=== PATIENT | female | born 1975 | race Hispanic/Latino ===

== ENCOUNTER 2018-11-08 02:46 | Emergency (ER) | payer OTHER ==
[2018-11-08] MEDS ORDERED: KETOROLAC 30 MG/ML INJ ONE (03:29)
[2018-11-08] MEDS ORDERED: NA CHLORIDE 0.9% 1,000 ML ONE (03:29)
[2018-11-08] MEDS ORDERED: ONDANSETRON 4 MG/2 ML VIAL ONE (03:32)
[2018-11-08 04:00] LABS: ALT/SGPT 59 U/L (12-78); AST/SGOT 26 U/L (15-37); Albumin 4.5 g/dL (3.4-5.0); Alkaline Phosphatase 111 U/L (45-117); BUN Blood Urea Nitrogen 18 mg/dL (7-18); Bicarbonate 26 mmol/L (21-32); Bilirubin Direct < 0.1 mg/dL (0-0.2); Bilirubin Total 0.5 mg/dL (0.2-1.0); Glucose Level 206 mg/dL (74-106); Lipase 138 U/L (73-393); Potassium 4.2 mmol/L (3.5-5.1); Protein, Total 8.3 g/dL (6.4-8.2); Sodium Level 140 mmol/L (136-145)
[2018-11-08 04:08] LABS: Absolute Lymphocytes (CBC) 3.2 K/uL (0.7-4.9); Basophils % 0.6 % (0-1.3); Eosinophils % 0.8 % (0-4.4); MPV 9.4 fL (7.6-11.3); Monocytes % 7.3 % (3.3-12.3); RBC Red Blood Cell Count 5.23 M/uL (3.86-4.86)
--- NOTE | 2018-11-08 05:09 | ER ---
Nurse's Notes [facility] Name: Jennifer Goodwin Age: 43 yrs Sex: Female : 1975 Arrival Date: 11/08/2018 Time: 02:48 Bed 7 Private MD: Diagnosis: Calculus of lower urinary tract, unspecified Presentation: 11/08 03:02 Presenting complaint: Patient states: abd pain that radiates to back x 1 hr w/N/V/D. aa1 Transition of care: patient was not received from another setting of care. Onset of symptoms was November 08, 2018. Risk Assessment: Do you want to hurt yourself or someone else? Patient reports no desire to harm self or others. Initial Sepsis Screen: Does the patient meet any 2 criteria? RR > 20 per min. Does the patient have a suspected source of infection? Yes: Acute abdominal pain. Care prior to arrival: None. 03:02 Method Of Arrival: Ambulatory aa1 03:02 Acuity: PATTIE 3 aa1 Triage Assessment: 03:04 General: Appears in no apparent distress. uncomfortable, Behavior is cooperative, aa1 appropriate for age, restless. 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 - Social history:: Smoking status: Patient/guardian denies using tobacco. - Ebola Screening: : No symptoms or risks identified at this time. Screenin:10 Abuse screen: Denies threats or abuse. Nutritional screening: No deficits noted. ea Tuberculosis screening: No symptoms or risk factors identified. Fall Risk None identified. Assessment: 03:18 General: Appears uncomfortable, Behavior is restless. Pain: Complains of pain in back ea and abdomen. Neuro: Level of Consciousness is awake, alert, obeys commands, Oriented to person, place, time, situation. Cardiovascular: Patient's skin is warm and dry. Respiratory: Airway is patent Respiratory effort is even, unlabored, Respiratory pattern is tachypnea. GI: Bowel sounds present X 4 quads. Abd is soft and non tender X 4 quads. Derm: Skin is clammy, Skin is pale, Skin temperature is warm. Musculoskeletal: Circulation, motion, and sensation intact. 04:00 Reassessment: Patient and/or family updated on plan of care and expected duration. Pain ea level reassessed. Patient is alert, oriented x 3, equal unlabored respirations, skin warm/dry/pink. 05:50 Reassessment: Patient and/or family updated on plan of care and expected duration. Pain ea level reassessed. Patient is alert, oriented x 3, equal unlabored respirations, skin warm/dry/pink. 06:20 Reassessment: Patient and/or family updated on plan of care and expected duration. Pain ea level reassessed. Patient is alert, oriented x 3, equal unlabored respirations, skin warm/dry/pink. Discharge instruction given to patient, verbalized the understanding of instruction. No s/s of pain or discomfort noted at this time. Patient states feeling better. Patient states symptoms have improved. Vital Signs: 03:04 BP 142 / 93; Pulse 82; Resp 30; Temp 97.3; Pulse Ox 100% on R/A; Weight 68.95 kg; aa1 Height 4 ft. 11 in. (149.86 cm); Pain 10/10; 04:15 BP 103 / 68; Pulse 60; Resp 18; Pulse Ox 100% on R/A; ea 05:15 BP 92 / 67; Pulse 67; Resp 18; Pulse Ox 99% ; ea 06:20 BP 113 / 75; Pulse 75; Resp 18; Pulse Ox 99% ; ea 03:04 Body Mass Index 30.70 (68.95 kg, 149.86 cm) aa1 ED Course: 02:48 Patient arrived in ED. ds1 03:01 Paulino Ashford MD is Attending Physician. tw4 03:03 Gregoria Golden, YEN is Primary Nurse. ea 03:03 Triage completed. aa1 03:04 Arm band placed on right wrist. aa1 03:10 Patient has correct armband on for positive identification. Bed in low position. Call ea light in reach. Side rails up X2. 03:13 Inserted saline lock: 20 gauge in right antecubital area, using aseptic technique. ea Blood collected. 03:43 CT Stone Protocol In Process Unspecified. EDMS 05:08 Levi Olsen MD is Referral Physician. tw4 06:26 No provider procedures requiring assistance completed. IV discontinued, intact, ea bleeding controlled, No redness/swelling at site. Pressure dressing applied. Administered Medications: 03:15 Drug: TORadol 30 mg Route: IVP; Site: right antecubital; ea 03:32 Follow up: Response: No adverse reaction; Pain is decreased ea 03:31 Drug: NS 0.9% 1000 ml Route: IV; Rate: 1 bolus; Site: right antecubital; ea 04:50 Follow up: Response: No adverse reaction; IV Status: Completed infusion; IV Intake: ea 1000ml 03:32 Drug: Zofran 4 mg Route: IVP; Site: right antecubital; ea 04:00 Follow up: Response: No adverse reaction; Marked relief of symptoms ea 05:30 Drug: NS 0.9% 500 ml Route: IV; Rate: bolus; Site: right antecubital; ea 06:00 Follow up: Response: No adverse reaction; IV Status: Completed infusion; IV Intake: ea 500ml 06:10 Drug: morphine 2 mg Route: IVP; Site: right antecubital; ea 06:33 Follow up: Response: No adverse reaction; Pain is decreased ea 06:12 Drug: ProTONIX 40 mg Route: IVP; Site: right antecubital; ea 06:33 Follow up: Response: No adverse reaction ea Intake: 04:50 IV: 1000ml; Total: 1000ml. ea 06:00 IV: 500ml; Total: 1500ml. ea Outcome: 05:08 Discharge ordered by . tw4 06:26 Discharged to home ambulatory, with significant other. ea 06:26 Condition: improved 06:26 Discharge instructions given to patient, Instructed on discharge instructions, follow up and referral plans. medication usage, Demonstrated understanding of instructions, follow-up care, medications, Prescriptions given X 2. 06:33 Patient left the ED. ea Signatures: Dispatcher [employer] Marybeth Roper RN Kalpana Ansari Elena, RN RN ea Wadley, Terrence, MD MD tw4
--- NOTE | 2018-11-08 05:09 | EDPHYS ---
Physician Documentation [facility] Name: Jennifer Goodwin Age: 43 yrs Sex: Female : 1975 Arrival Date: 11/08/2018 Time: 02:48 Bed 7 Private MD: ED Physician Paulino Ashford HPI: 11/08 04:11 This 43 yrs old Female presents to ER via Ambulatory with complaints of tw4 Abdominal Pain, Vomiting/Diarrhea. 04:11 The patient presents to the emergency department with nausea, vomiting. Onset: The tw4 symptoms/episode began/occurred today. Possible causes: unknown. The symptoms are aggravated by nothing. The symptoms are alleviated by nothing. Associated signs and symptoms: The patient has no apparent associated signs or symptoms. Severity of symptoms: At their worst the symptoms were mild in the emergency department the symptoms are unchanged. The patient has not experienced similar symptoms in the past. 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 - Social history:: Smoking status: Patient/guardian denies using tobacco. - Ebola Screening: : No symptoms or risks identified at this time. ROS: 04:11 Constitutional: Negative for fever, chills, and weight loss, Eyes: Negative for injury, tw4 pain, redness, and discharge, Cardiovascular: Negative for chest pain, palpitations, and edema, Respiratory: Negative for shortness of breath, cough, wheezing, and pleuritic chest pain, Back: Negative for injury and pain, MS/Extremity: Negative for injury and deformity, Skin: Negative for injury, rash, and discoloration, Neuro: Negative for headache, weakness, numbness, tingling, and seizure. 04:11 Abdomen/GI: Positive for abdominal pain, nausea and vomiting, nausea, vomiting, and diarrhea, nausea, vomiting, diarrhea, Negative for abdominal cramps, abdominal distension, anorexia, dysphagia, hematemesis, rectal pain, rectal bleeding. Exam: 04:11 Constitutional: This is a well developed, well nourished patient who is awake, alert, tw4 and in no acute distress. Head/Face: Normocephalic, atraumatic. Chest/axilla: Normal chest wall appearance and motion. Nontender with no deformity. No lesions are appreciated. Cardiovascular: Regular rate and rhythm with a normal S1 and S2. No gallops, murmurs, or rubs. Normal PMI, no JVD. No pulse deficits. Respiratory: Lungs have equal breath sounds bilaterally, clear to auscultation and percussion. No rales, rhonchi or wheezes noted. No increased work of breathing, no retractions or nasal flaring. Vital Signs: 03:04 BP 142 / 93; Pulse 82; Resp 30; Temp 97.3; Pulse Ox 100% on R/A; Weight 68.95 kg; aa1 Height 4 ft. 11 in. (149.86 cm); Pain 10/10; 04:15 BP 103 / 68; Pulse 60; Resp 18; Pulse Ox 100% on R/A; ea 05:15 BP 92 / 67; Pulse 67; Resp 18; Pulse Ox 99% ; ea 06:20 BP 113 / 75; Pulse 75; Resp 18; Pulse Ox 99% ; ea 03:04 Body Mass Index 30.70 (68.95 kg, 149.86 cm) aa1 MDM: 03:01 Patient medically screened. tw4 04:11 Differential diagnosis: Nonspecific abd pain, gastritis, cholecystitis, pancreatitis. tw4 Data reviewed: vital signs, nurses notes. Counseling: I had a detailed discussion with the patient and/or guardian regarding: the historical points, exam findings, and any diagnostic results supporting the discharge/admit diagnosis, lab results, radiology results. 11/08 03:03 Order name: Basic Metabolic Panel; Complete Time: 05:20 11/08 03:03 Order name: CBC with Diff; Complete Time: :11/08 03:03 Order name: Creatinine for Radiology; Complete Time: 05:20 11/08 03:03 Order name: Hepatic Function; Complete Time: :20 11/08 03:03 Order name: Lipase 11/08 03:03 Order name: CT Stone Protocol 11/08 03:03 Order name: IV Saline Lock; Complete Time: 03:12 11/08 03:03 Order name: Labs collected and sent; Complete Time: 03:12 tw4 11/08 03:03 Order name: Urine Dipstick-Ancillary (obtain specimen) tw4 11/08 03:03 Order name: Urine Test (obtain specimen) tw4 Administered Medications: 03:15 Drug: TORadol 30 mg Route: IVP; Site: right antecubital; ea 03:32 Follow up: Response: No adverse reaction; Pain is decreased ea 03:31 Drug: NS 0.9% 1000 ml Route: IV; Rate: 1 bolus; Site: right antecubital; ea 04:50 Follow up: Response: No adverse reaction; IV Status: Completed infusion; IV Intake: ea 1000ml 03:32 Drug: Zofran 4 mg Route: IVP; Site: right antecubital; ea 04:00 Follow up: Response: No adverse reaction; Marked relief of symptoms ea 05:30 Drug: NS 0.9% 500 ml Route: IV; Rate: bolus; Site: right antecubital; ea 06:00 Follow up: Response: No adverse reaction; IV Status: Completed infusion; IV Intake: ea 500ml 06:10 Drug: morphine 2 mg Route: IVP; Site: right antecubital; ea 06:33 Follow up: Response: No adverse reaction; Pain is decreased ea 06:12 Drug: ProTONIX 40 mg Route: IVP; Site: right antecubital; ea 06:33 Follow up: Response: No adverse reaction ea Disposition: 11/08/18 05:08 Discharged to Home. Impression: Calculus of lower urinary tract, unspecified. - Condition is Stable. - Discharge Instructions: Kidney Stones, [id number]. - Prescriptions for Ibuprofen 800 mg Oral Tablet - take 1 tablet by ORAL route every 8 hours As needed take with food; 30 tablet. Tylenol- Codeine #3 300-30 mg Oral Tablet - take 2 tablet by ORAL route every 6 hours As needed; 6 tablet. - Medication Reconciliation Form, Thank You Letter, Antibiotic Education, Prescription Opioid Use form. - Follow up: Levi Olsen MD; When: Upon discharge from the Emergency Department; Reason: If symptoms return, Recheck today's complaints, Continuance of care. - Problem is new. - Symptoms have improved. Signatures: Dispatcher [employer] EDMarybeth Garcia RN RN aa1 Gregoria Golden RN RN Paulino Pepe MD MD tw4 Corrections: (The following items were deleted from the chart) 06:33 05:08 11/08/2018 05:08 Discharged to Home. Impression: Calculus of lower urinary tract, ea unspecified. Condition is Stable. Forms are Medication Reconciliation Form, Thank You Letter, Antibiotic Education, Prescription Opioid Use. Follow up: Levi Olsen; When: Upon discharge from the Emergency Department; Reason: If symptoms return, Recheck today's complaints, Continuance of care. Problem is new. Symptoms have improved. tw4
[2018-11-08] MEDS ORDERED: NA CHLORIDE 0.9% 500 ML ONE (05:44)
[2018-11-08] MEDS ORDERED: PANTOPRAZOLE 40 MG INJ ONE (06:25)
[2018-11-08] MEDS ORDERED: MORPHINE 2 MG/ML SYR ONE (06:25)
[2018-11-08 06:49] VITALS: TEMP 97.3
[2018-11-08 06:50] VITALS: O2SAT 99
[2018-11-08 06:51] VITALS: BP 113/75
--- NOTE | 2018-11-08 10:10 | RAD REPORT ---
EXAM DESCRIPTION: CT - Stone Protocol - 11/08/2018 4:46 am CLINICAL HISTORY: The patient is 43 years old and is Female; FLANK PAIN TECHNIQUE: Axial computed tomography images of the abdomen and pelvis without intravenous contrast. Sagittal and coronal reformatted images were created and reviewed. This CT exam was performed usi ng one or more of the following dose reduction techniques: automated exposure control, adjustment o f the mA and/or kV according to patient size, and/or use of iterative reconstruction technique. COMPARISON: CT of the abdomen and pelvis November 09, 2012. FINDINGS: LUNG BASES: Unremarkable. No mass. No consolidation. ABDOMEN: LIVER: The liver is enlarged and mildly fatty. GALLBLADDER AND BILE DUCTS: The gallbladder is physiologically distended. No calcified gallstone s or ductal dilatation is seen. PANCREAS: Unremarkable. No ductal dilation. SPLEEN: Unremarkable. ADRENALS: Unremarkable. No mass. KIDNEYS AND URETERS: Bilateral intrarenal calcifications are present. There is no hydronephrosis or hydroureter of either kidney. No obstructing renal or ureteral calculus is seen. STOMACH AND BOWEL: The stomach is minimally distended with air. The small bowel is relatively no rmal in caliber. Stool is noted throughout the colon. There is no mucosal thickening or evidence of b owel obstruction. PELVIS: APPENDIX: The appendix is normal in caliber without surrounding inflammation. BLADDER: Unremarkable. No stones. REPRODUCTIVE: Unremarkable as visualized. ABDOMEN and PELVIS: INTRAPERITONEAL SPACE: Unremarkable. No free air. No significant fluid collection. BONES/JOINTS: No acute fracture. SOFT TISSUES: The soft tissues are normal. VASCULATURE: Unremarkable. No abdominal aortic aneurysm. LYMPH NODES: Unremarkable. No enlarged lymph nodes. IMPRESSION: Bilateral nephrolithiasis without obstruction. Electronically signed by: Nat Chu MD 11/08/2018 4:20 AM CDT Due to temporary technical issues with the PACS/Fluency reporting system, reports are being signed by the in house radiologist as a courtesy to ensure prompt reporting. The interpreting radiologist is f inesly responsible for the content of the report.
== END 2018-11-08 06:33 | disposition home or self-care (01) ==
LOC: ER 02:46
DX: N21.9 Calculus of lower urinary tract, unspecified (principal); E11.9 Type 2 diabetes mellitus without complications
CPT/HCPCS: 36415; 74176; 76377; 80048; 80076; 83690; 85025; 96361; 96374; 96375; 99284; C9113; J2270; J2405; J7030

== ENCOUNTER 2019-05-18 11:19 | Emergency (ER) | payer OTHER ==
[2019-05-18] MEDS ORDERED: MORPHINE 2 MG/ML SYR ONE (12:30)
[2019-05-18] MEDS ORDERED: FAMOTIDINE 20 MG/2 ML VIAL IV ONE (12:30)
[2019-05-18] MEDS ORDERED: ONDANSETRON 4 MG/2 ML VIAL ONE (12:30)
[2019-05-18] MEDS ORDERED: NA CHLORIDE 0.9% 1,000 ML ONE (12:30)
[2019-05-18 12:34] LABS: Absolute Lymphocytes (CBC) 1.4 K/uL (0.7-4.9); Basophils % 0.3 % (0-1.3); Hematocrit 44.8 % (36.0-45.0); Lymphocytes % 12.9 % (15.3-44.8); MPV 9.1 fL (7.6-11.3); RBC Red Blood Cell Count 5.05 M/uL (3.86-4.86)
[2019-05-18 12:47] LABS: ALT/SGPT 52 U/L (12-78); AST/SGOT 23 U/L (15-37); Albumin 3.9 g/dL (3.4-5.0); Alkaline Phosphatase 87 U/L (45-117); BUN Blood Urea Nitrogen 16 mg/dL (7-18); Bicarbonate 28 mmol/L (21-32); Bilirubin Direct 0.3 mg/dL (0-0.2); Bilirubin Total 1.3 mg/dL (0.2-1.0); Glucose Level 136 mg/dL (74-106); Lipase 104 U/L (73-393); Potassium 3.8 mmol/L (3.5-5.1); Protein, Total 7.4 g/dL (6.4-8.2); Sodium Level 140 mmol/L (136-145)
[2019-05-18 12:58] LABS: Urine Blood NEGATIVE (NEG); Urine Glucose 2+ (NEG); Urine Protein NEGATIVE (NEG)
--- NOTE | 2019-05-18 13:33 | RAD REPORT ---
EXAM DESCRIPTION: CT - Abdomen Pelvis W Contrast - 05/18/2019 1:09 pm CLINICAL HISTORY: Abdominal pain COMPARISON: October 2018 TECHNIQUE: Computed axial tomography of the abdomen pelvis was obtained. 100 cc Isovue-300 was admin istered intravenously. Oral contrast was not requested which limits evaluation of bowel. All CT scans are performed using dose optimization technique as appropriate and may include automated exposure control or mA/KV adjustment according to patient size. FINDINGS: Fatty liver The spleen, pancreas and adrenals unremarkable A 14 millimeter right renal cyst. Small nonobstructing bilateral renal calculi There is no evidence of diverticulitis. Normal appendix 21 millimeter left renal cyst without significant free fluid IMPRESSION: Small nonobstructing bilateral renal calculi 21 millimeter left renal cyst without significant free fluid
--- NOTE | 2019-05-18 14:05 | ER ---
Nurse's Notes [facility] [place], [place] Name: Jennifer Goodwin Age: 44 yrs Sex: Female : 1975 Arrival Date: 05/18/2019 Time: 11:23 Bed 16 Private MD: Diagnosis: Abdominal tenderness;Type 2 diabetes mellitus Presentation: 05/18 11:30 Presenting complaint: Patient states: Epigastric pain and burning radiates to the back, jl7 N/V since 0500 this morning, I've had kidney stones in the past and this is sort of similar. Transition of care: patient was not received from another setting of care. Onset of symptoms was May 18, 2019 at 05:00. Risk Assessment: Do you want to hurt yourself or someone else? Patient reports no desire to harm self or others. Initial Sepsis Screen: Does the patient meet any 2 criteria? No. Patient's initial sepsis screen is negative. Does the patient have a suspected source of infection? No. Patient's initial sepsis screen is negative. Care prior to arrival: None. 11:30 Method Of Arrival: Ambulatory jl7 11:30 Acuity: PATTIE 3 jl7 Triage Assessment: 11:34 General: Appears in no apparent distress. uncomfortable, Behavior is calm, cooperative, jl7 appropriate for age. Pain: Complains of pain in epigastric area Pain radiates to back Pain currently is 1 out of 10 on a pain scale. GI: Reports nausea, vomiting. 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 - Coronavirus screen:: The patient has NOT traveled to [place], [place], or [place] in the past 14 days. Proceed with normal triage process as indicated. - Social history:: Smoking status: Patient denies any tobacco usage or history of. - Family history:: not pertinent. - Ebola Screening: : No symptoms or risks identified at this time. Screenin:02 Abuse screen: Denies threats or abuse. Denies injuries from another. Nutritional ca1 screening: No deficits noted. Tuberculosis screening: No symptoms or risk factors identified. Fall Risk IV access (20 points). Assessment: 12:02 General: Appears in no apparent distress. comfortable, Behavior is calm, cooperative, ca1 appropriate for age. Pain: Complains of pain in epigastric area and left upper quadrant Pain does not radiate. Pain currently is 4 out of 10 on a pain scale. Quality of pain is described as burning, Pain began 1 day ago. Neuro: Level of Consciousness is awake, alert, obeys commands, Oriented to person, place, time, situation, Appropriate for age. Cardiovascular: Heart tones S1 S2 present Capillary refill < 3 seconds Patient's skin is warm and dry. Respiratory: Airway is patent Respiratory effort is even, unlabored, Respiratory pattern is regular, agonal Breath sounds are clear bilaterally. GI: Abdomen is round non-distended, Bowel sounds present X 4 quads. Abd is soft X 4 quads Abdomen is tender to palpation in epigastric area and left upper quadrant Reports nausea, vomiting. : No signs and/or symptoms were reported regarding the genitourinary system. EENT: No signs and/or symptoms were reported regarding the EENT system. Derm: Skin is intact, is healthy with good turgor, Skin is pink, warm \T\ dry. Musculoskeletal: Circulation, motion, and sensation intact. Capillary refill < 3 seconds. 12:46 Reassessment: Patient appears in no apparent distress at this time. No changes from ca1 previously documented assessment. Patient and/or family updated on plan of care and expected duration. Pain level reassessed. Patient is alert, oriented x 3, equal unlabored respirations, skin warm/dry/pink. 13:40 Reassessment: Patient appears in no apparent distress at this time. No changes from ca1 previously documented assessment. Patient and/or family updated on plan of care and expected duration. Pain level reassessed. Patient is alert, oriented x 3, equal unlabored respirations, skin warm/dry/pink. 14:33 Reassessment: Patient appears in no apparent distress at this time. Patient is alert, ca1 oriented x 3, equal unlabored respirations, skin warm/dry/pink. Vital Signs: 11:34 BP 129 / 96; Pulse 78; Resp 16; Temp 98.3; Pulse Ox 98% ; Weight 63.5 kg; Height 4 ft. jl7 11 in. (149.86 cm); Pain 1/10; 12:46 BP 123 / 91; Pulse 76; Resp 17 S; Pulse Ox 100% on R/A; Pain 3/10; ca1 13:45 BP 119 / 85; Pulse 64; Resp 17 S; Pulse Ox 100% on R/A; ca1 14:33 BP 113 / 79; Pulse 71; Resp 16 S; Pulse Ox 100% on R/A; ca1 11:34 Body Mass Index 28.28 (63.50 kg, 149.86 cm) jl7 ED Course: 11:23 Patient arrived in ED. as 11:33 Triage completed. jl7 11:34 Arm band placed on right wrist. jl7 11:36 Shavon Juarez, YEN is Primary Nurse. ca1 11:38 Dick Narvaez MD is Attending Physician. karely 12:02 Patient has correct armband on for positive identification. Bed in low position. Call ca1 light in reach. Side rails up X 1. Pulse ox on. NIBP on. Warm blanket given. 12:02 No provider procedures requiring assistance completed. Initial lab(s) drawn, by ut, ca1 sent to lab. Inserted saline lock: 20 gauge in left antecubital area, using aseptic technique. Blood collected. 12:30 US Abdomen Limited In Process Unspecified. EDMS 13:09 CT Abd/Pelvis - IV Contrast Only In Process Unspecified. EDMS 14:56 IV discontinued, intact, bleeding controlled, No redness/swelling at site. Pressure ca1 dressing applied. Administered Medications: 12:10 Drug: NS 0.9% 1000 ml Route: IV; Rate: 1 bolus; Site: left antecubital; ca1 13:15 Follow up: Response: No adverse reaction; IV Status: Completed infusion ca1 13:34 Follow up: Response: No adverse reaction; IV Status: Completed infusion ca1 12:11 Drug: Zofran 4 mg Route: IVP; Site: left antecubital; ca1 13:35 Follow up: Response: No adverse reaction; Nausea is decreased ca1 12:15 Drug: Pepcid 20 mg Route: IVP; Site: left antecubital; ca1 13:34 Follow up: Response: No adverse reaction ca1 13:34 Not Given (Patient Refused): morphine 2 mg IVP once; (PAIN>8) RASS on ADMN: Combtv4, ca1 Very Agttd3, Agttd2, Rstlss1, AlertClm0, Drwsy-1, LtSdtn-2, ModSdtn-3, DpSdtn-4, UnArsble-5 x2 Outcome: 14:05 Discharge ordered by . karely 14:56 Discharged to home ambulatory, with family. ca1 14:56 Condition: stable 14:56 Discharge instructions given to patient, Instructed on discharge instructions, follow up and referral plans. medication usage, Demonstrated understanding of instructions, follow-up care, medications, Prescriptions given X 3. 14:56 Patient left the ED. ca1 Signatures: Dispatcher [employer] EDMS Dick Narvaez MD MD cha Martinez, Amelia as Leal, Jahala, RN RN jl7 Shavon Juarez RN RN ca1
--- NOTE | 2019-05-18 14:06 | EDPHYS ---
Physician Documentation [facility] Name: Jennifer Goodwin Age: 44 yrs Sex: Female : 1975 Arrival Date: 05/18/2019 Time: 11:23 Bed 16 Private MD: ED Physician Dick Narvaez HPI: 05/18 12:04 This 44 yrs old Female presents to ER via Ambulatory with complaints of karely Abdominal Pain. 12:04 The patient presents with abdominal pain. Onset: The symptoms/episode began/occurred karely just prior to arrival. The symptoms do not radiate. Associated signs and symptoms: Pertinent positives: nausea and vomiting. Modifying factors: The symptoms are alleviated by nothing, the symptoms are aggravated by nothing. Severity of pain: At its worst the pain was mild in the emergency department the pain is unchanged. The patient has experienced similar episodes in the past, several times. 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 - Coronavirus screen:: The patient has NOT traveled to [place], [place], or [place] in the past 14 days. Proceed with normal triage process as indicated. - Social history:: Smoking status: Patient denies any tobacco usage or history of. - Family history:: not pertinent. - Ebola Screening: : No symptoms or risks identified at this time. ROS: 12:04 Constitutional: Negative for fever, chills, and weight loss, Eyes: Negative for injury, karely pain, redness, and discharge, ENT: Negative for injury, pain, and discharge, Neck: Negative for injury, pain, and swelling, Cardiovascular: Negative for chest pain, palpitations, and edema, Respiratory: Negative for shortness of breath, cough, wheezing, and pleuritic chest pain, : Negative for injury, bleeding, discharge, and swelling, MS/Extremity: Negative for injury and deformity, Skin: Negative for injury, rash, and discoloration, Neuro: Negative for headache, weakness, numbness, tingling, and seizure, Psych: Negative for depression, anxiety, suicide ideation, homicidal ideation, and hallucinations, Allergy/Immunology: Negative for hives, rash, and allergies, Endocrine: Negative for neck swelling, polydipsia, polyuria, polyphagia, and marked weight changes, Hematologic/Lymphatic: Negative for swollen nodes, abnormal bleeding, and unusual bruising. 12:04 Abdomen/GI: Positive for abdominal pain, nausea and vomiting, of the epigastric area, right upper quadrant and left upper quadrant. Exam: 12:04 Constitutional: This is a well developed, well nourished patient who is awake, alert, karely and in no acute distress. Head/Face: Normocephalic, atraumatic. Eyes: Pupils equal round and reactive to light, extra-ocular motions intact. Lids and lashes normal. Conjunctiva and sclera are non-icteric and not injected. Cornea within normal limits. Periorbital areas with no swelling, redness, or edema. ENT: Nares patent. No nasal discharge, no septal abnormalities noted. Tympanic membranes are normal and external auditory canals are clear. Oropharynx with no redness, swelling, or masses, exudates, or evidence of obstruction, uvula midline. Mucous membranes moist. Neck: Trachea midline, no thyromegaly or masses palpated, and no cervical lymphadenopathy. Supple, full range of motion without nuchal rigidity, or vertebral point tenderness. No Meningismus. Chest/axilla: Normal chest wall appearance and motion. Nontender with no deformity. No lesions are appreciated. Cardiovascular: Regular rate and rhythm with a normal S1 and S2. No gallops, murmurs, or rubs. Normal PMI, no JVD. No pulse deficits. Respiratory: Lungs have equal breath sounds bilaterally, clear to auscultation and percussion. No rales, rhonchi or wheezes noted. No increased work of breathing, no retractions or nasal flaring. Back: No spinal tenderness. No costovertebral tenderness. Full range of motion. Female : Normal external genitalia. Skin: Warm, dry with normal turgor. Normal color with no rashes, no lesions, and no evidence of cellulitis. MS/ Extremity: Pulses equal, no cyanosis. Neurovascular intact. Full, normal range of motion. Neuro: Awake and alert, GCS 15, oriented to person, place, time, and situation. Cranial nerves II-XII grossly intact. Motor strength 5/5 in all extremities. Sensory grossly intact. Cerebellar exam normal. Normal gait. Psych: Awake, alert, with orientation to person, place and time. Behavior, mood, and affect are within normal limits. 12:04 Abdomen/GI: Inspection: abdomen appears normal, Bowel sounds: normal, Palpation: mild abdominal tenderness, in the epigastric area, right upper quadrant and left upper quadrant. Vital Signs: 11:34 BP 129 / 96; Pulse 78; Resp 16; Temp 98.3; Pulse Ox 98% ; Weight 63.5 kg; Height 4 ft. jl7 11 in. (149.86 cm); Pain 1/10; 12:46 BP 123 / 91; Pulse 76; Resp 17 S; Pulse Ox 100% on R/A; Pain 3/10; ca1 13:45 BP 119 / 85; Pulse 64; Resp 17 S; Pulse Ox 100% on R/A; ca1 14:33 BP 113 / 79; Pulse 71; Resp 16 S; Pulse Ox 100% on R/A; ca1 11:34 Body Mass Index 28.28 (63.50 kg, 149.86 cm) 7 MDM: 11:38 Patient medically screened. [facility] 12:05 Data reviewed: vital signs, nurses notes, lab test result(s), radiologic studies, CT karely scan, ultrasound. 05/18 12:01 Order name: Basic Metabolic Panel; Complete Time: 13:29 ca1 05/18 12:01 Order name: CBC with Diff; Complete Time: 13: ca1 05/18 12:01 Order name: Creatinine for Radiology; Complete Time: 13: ca1 05/18 12:01 Order name: Hepatic Function; Complete Time: 13: ca1 05/18 12:01 Order name: Lipase; Complete Time: 13:29 ca1 05/18 12:06 Order name: Urine Culture [facility] 05/18 12:03 Order name: CT Abd/Pelvis - IV Contrast Only; Complete Time: 14:03 karely 05/18 12:03 Order name: US Abdomen Limited [facility] 05/18 12:55 Order name: Urine Dipstick--Ancillary (enter results); Complete Time: 13:29 bd 05/18 12:55 Order name: Urine --Ancillary (enter results); Complete Time: 13: 05/18 12:01 Order name: IV Saline Lock; Complete Time: 12:02 ca1 05/18 12:01 Order name: Labs collected and sent; Complete Time: 12:02 ca1 05/18 12:06 Order name: Urine Dipstick-Ancillary (obtain specimen); Complete Time: 12:52 karely 05/18 12:06 Order name: Urine Test (obtain specimen); Complete Time: 12:52 [facility] Administered Medications: 12:10 Drug: NS 0.9% 1000 ml Route: IV; Rate: 1 bolus; Site: left antecubital; ca1 13:15 Follow up: Response: No adverse reaction; IV Status: Completed infusion ca1 13:34 Follow up: Response: No adverse reaction; IV Status: Completed infusion ca1 12:11 Drug: Zofran 4 mg Route: IVP; Site: left antecubital; ca1 13:35 Follow up: Response: No adverse reaction; Nausea is decreased ca1 12:15 Drug: Pepcid 20 mg Route: IVP; Site: left antecubital; ca1 13:34 Follow up: Response: No adverse reaction ca1 13:34 Not Given (Patient Refused): morphine 2 mg IVP once; (PAIN>8) RASS on ADMN: Combtv4, ca1 Very Agttd3, Agttd2, Rstlss1, AlertClm0, Drwsy-1, LtSdtn-2, ModSdtn-3, DpSdtn-4, UnArsble-5 x2 Disposition: 05/18/19 14:05 Discharged to Home. Impression: Abdominal tenderness, Type 2 diabetes mellitus. - Condition is Stable. - Discharge Instructions: Abdominal Pain, Adult, Type 2 Diabetes Mellitus, Diagnosis, Adult, Abdominal Pain, Adult, [id number], Type 2 Diabetes Mellitus, Diagnosis, Adult, [id number]. - Prescriptions for Bentyl 20 mg Oral Tablet - take 1 tablet by ORAL route every 6 hours As needed; 20 tablet. Pepcid 20 mg Oral Tablet - take 1 tablet by ORAL route every 12 hours for 10 days; 20 tablet. Zofran 4 mg Oral Tablet - take 1 tablet by ORAL route every 12 hours As needed; 20 tablet. - Medication Reconciliation Form, Thank You Letter, Antibiotic Education, Prescription Opioid Use, Work release form form. - Follow up: Private Physician; When: 2 - 3 days; Reason: Recheck today's complaints, Continuance of care, Re-evaluation by your physician. - Problem is new. - Symptoms have improved. Signatures: Dispatcher [employer] EDDick Nieves MD MD cha Leal, Jahala RN RN jl7 Shavon Juarez RN RN ca1 Corrections: (The following items were deleted from the chart) 14:56 14:05 05/18/2019 14:05 Discharged to Home. Impression: Abdominal tenderness; Type 2 ca1 diabetes mellitus. Condition is Stable. Forms are Medication Reconciliation Form, Thank You Letter, Antibiotic Education, Prescription Opioid Use. Follow up: Private Physician; When: 2 - 3 days; Reason: Recheck today's complaints, Continuance of care, Re-evaluation by your physician. Problem is new. Symptoms have improved. karely
--- NOTE | 2019-05-18 14:31 | RAD REPORT ---
EXAM DESCRIPTION: US - Abdomen Exam Limited - 05/18/2019 12:30 pm CLINICAL HISTORY: Abdominal pain. COMPARISON: 2016 FINDINGS: The gallbladder wall is not thickened. A gallstone is not seen. The biliary tree is normal caliber. IMPRESSION: Unremarkable gallbladder ultrasound.
[2019-05-18 15:29] VITALS: O2SAT 100
[2019-05-18 15:31] VITALS: TEMP 98.3
[2019-05-18 15:33] VITALS: BP 113/79
== END 2019-05-18 14:56 | disposition home or self-care (01) ==
LOC: ER 11:19
DX: R10.819 Abdominal tenderness, unspecified site (principal); E11.9 Type 2 diabetes mellitus without complications; R11.2 Nausea with vomiting, unspecified; Z87.442 Personal history of urinary calculi
CPT/HCPCS: 96361; 87088; 85025; 87086; 80048; 36415; 81025; 80076; 81003; 83690; 74177; 76705; 96375; 96374; 99284; Q9967; J2270; J7030; J2405

== ENCOUNTER 2019-07-12 22:06 | Emergency (ER) | payer OTHER ==
[2019-07-12] MEDS ORDERED: NA CHLORIDE 0.9% 1,000 ML ONE (22:42)
[2019-07-12] MEDS ORDERED: ONDANSETRON 4 MG/2 ML VIAL ONE (22:42)
[2019-07-12] MEDS ORDERED: MORPHINE 4 MG/ML SYR ONE (22:42)
[2019-07-12 22:55] LABS: Absolute Lymphocytes (CBC) 3.5 K/uL (0.7-4.9); Basophils % 0.7 % (0-1.3); Hematocrit 43.6 % (36.0-45.0); Lymphocytes % 32.6 % (15.3-44.8); MPV 8.6 fL (7.6-11.3); RBC Red Blood Cell Count 4.94 M/uL (3.86-4.86)
[2019-07-12 23:07] LABS: Albumin 4.2 g/dL (3.4-5.0); Bilirubin Direct 0.1 mg/dL (0-0.2); Bilirubin Total 0.6 mg/dL (0.2-1.0); Potassium 3.4 mmol/L (3.5-5.1); Protein, Total 7.9 g/dL (6.4-8.2)
--- NOTE | 2019-07-13 00:55 | EDPHYS ---
Physician Documentation [facility] Name: Jennifer Goodwin Age: 44 yrs Sex: Female : 1975 Arrival Date: 07/12/2019 Time: 22:17 Bed 5 Private MD: ED Physician Dick Narvaez HPI: 07/12 00:20 This 44 yrs old Female presents to ER via Ambulatory with complaints of kb Abdominal Pain. 00:20 The patient presents with abdominal pain in the left upper quadrant. Onset: The kb symptoms/episode began/occurred 4 day(s) ago. The symptoms do not radiate. Associated signs and symptoms: Pertinent positives: nausea, Pertinent negatives: constipation, diarrhea, fever, vomiting. The symptoms are described as constant. Modifying factors: The symptoms are alleviated by nothing, the symptoms are aggravated by nothing. Severity of pain: At its worst the pain was moderate in the emergency department the pain is unchanged. The patient has experienced a previous episode. The patient has not recently seen a physician. Pt reports nausea and abd pain for 4 days. Pain got worse approx 1 hour ago. Has had this pain before and ER workup was negative so sent to GI. GI scheduled her for endo to be done on Thursday, but cancelled due to coronavirus. . 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 - Social history:: Smoking status: Patient denies any tobacco usage or history of. Patient uses alcohol, occasionally. Patient/guardian denies using street drugs. ROS: 23:40 Constitutional: Negative for fever, chills, and weight loss, ENT: Negative for injury, kb pain, and discharge, Neck: Negative for injury, pain, and swelling, Cardiovascular: Negative for chest pain, palpitations, and edema, Respiratory: Negative for shortness of breath, cough, wheezing, and pleuritic chest pain, Back: Negative for injury and pain, MS/Extremity: Negative for injury and deformity, Skin: Negative for injury, rash, and discoloration, Neuro: Negative for headache, weakness, numbness, tingling, and seizure. 23:44 Abdomen/GI: Positive for abdominal pain, nausea, Negative for vomiting, diarrhea. kb Exam: 23:44 Constitutional: This is a well developed, well nourished patient who is awake, alert, kb and in no acute distress. Head/Face: Normocephalic, atraumatic. Neck: Trachea midline, no thyromegaly or masses palpated, and no cervical lymphadenopathy. Supple, full range of motion without nuchal rigidity, or vertebral point tenderness. No Meningismus. Chest/axilla: Normal chest wall appearance and motion. Nontender with no deformity. No lesions are appreciated. Cardiovascular: Regular rate and rhythm with a normal S1 and S2. No gallops, murmurs, or rubs. Normal PMI, no JVD. No pulse deficits. Respiratory: Lungs have equal breath sounds bilaterally, clear to auscultation and percussion. No rales, rhonchi or wheezes noted. No increased work of breathing, no retractions or nasal flaring. Back: No spinal tenderness. No costovertebral tenderness. Full range of motion. Skin: Warm, dry with normal turgor. Normal color with no rashes, no lesions, and no evidence of cellulitis. MS/ Extremity: Pulses equal, no cyanosis. Neurovascular intact. Full, normal range of motion. Neuro: Awake and alert, GCS 15, oriented to person, place, time, and situation. Cranial nerves II-XII grossly intact. Motor strength 5/5 in all extremities. Sensory grossly intact. Cerebellar exam normal. Normal gait. 23:44 Abdomen/GI: Inspection: abdomen appears normal, Bowel sounds: normal, Palpation: soft, in all quadrants, mild abdominal tenderness, in all quadrants. Vital Signs: 22:17 BP 159 / 104; Pulse 84; Resp 18; Temp 98.0(O); Pulse Ox 99% on R/A; Weight 65.77 kg fc (R); Height 4 ft. 11 in. (149.86 cm) (R); Pain 9/10; 23:44 BP 133 / 87; Pulse 65; Resp 17 S; Pulse Ox 100% on R/A; jd3 07/12 01:24 BP 134 / 89; Pulse 64; Resp 17 S; Pulse Ox 100% on R/A; jd3 07/11 22:17 Body Mass Index 29.29 (65.77 kg, 149.86 cm) fc MDM: 07/11 22:25 Patient medically screened. kb 23:40 Data reviewed: vital signs, nurses notes. Data interpreted: Pulse oximetry: on room air kb is 99 %. Interpretation: normal. 07/12 00:53 Counseling: I had a detailed discussion with the patient and/or guardian regarding: the kb historical points, exam findings, and any diagnostic results supporting the discharge/admit diagnosis, lab results, radiology results, the need for outpatient follow up, a family practitioner, to return to the emergency department if symptoms worsen or persist or if there are any questions or concerns that arise at home. 07/11 22:48 Order name: Basic Metabolic Panel; Complete Time: 23:11 EDMS 07/11 22:48 Order name: Liver (Hepatic) Function; Complete Time: 23:11 EDMS 07/11 22:48 Order name: Lipase; Complete Time: 23:11 EDMS 07/11 22:48 Order name: CBC with Automated Diff; Complete Time: 23:02 EDMS 07/11 23:15 Order name: CT Abd/Pelvis - IV Contrast Only kb 07/11 22:25 Order name: IV Saline Lock; Complete Time: 22:43 kb 07/11 22:25 Order name: Labs collected and sent; Complete Time: 22:43 kb Administered Medications: 07/11 22:50 Drug: NS 0.9% 1000 ml Route: IV; Rate: 1000 ml; Site: left antecubital; jd3 23:50 Follow up: Response: No adverse reaction; IV Status: Completed infusion; IV Intake: jd3 1000ml 22:50 Drug: Zofran (Ondansetron) 4 mg Route: IVP; Site: left antecubital; jd3 23:50 Follow up: Response: No adverse reaction jd3 22:50 Drug: morphine 4 mg Route: IVP; Site: left antecubital; jd3 23:50 Follow up: Response: No adverse reaction; RASS: Alert and Calm (0) jd3 Disposition: 07/12 07:35 Co-signature as Attending Physician, Dick Brice MD I agree with the assessment and karely plan of care. Disposition: 07/13/19 00:54 Discharged to Home. Impression: Upper abdominal pain, unspecified, Other ovarian cysts. - Condition is Stable. - Discharge Instructions: Abdominal Pain, Adult, [id number], Ovarian Cyst, [id number]. - Prescriptions for Bentyl 20 mg Oral Tablet - take 1 tablet by ORAL route every 6 hours As needed; 20 tablet. - Medication Reconciliation Form, Thank You Letter, Antibiotic Education, Prescription Opioid Use form. - Follow up: Emergency Department; When: As needed; Reason: Worsening of condition. Follow up: Private Physician; When: 2 - 3 days; Reason: Recheck today's complaints, Continuance of care, Re-evaluation by your physician. Signatures: Dispatcher [employer] EDPA Minna Doyle, INSPECTOR FIREARMS-C INSPECTOR FIREARMS-Arnoldob Dick Narvaez MD MD cha Chretien, Felicia, RN RN Markie Suero RN RN jd3 Corrections: (The following items were deleted from the chart) 07/11 23:41 23:09 BASIC METABOLIC PANEL+C.LAB.BRZ ordered. EDPA EDPA 23:41 23:09 CBC+H.LAB.BRZ ordered. EDPA EDPA 23:41 23:09 HEPATIC FUNCTION+C.LAB.BRZ ordered. EDPA EDMS 23:41 23:09 LIPASE+C.LAB.BRZ ordered. [facility] 07/12 01:31 00:54 07/13/2019 00:54 Discharged to Home. Impression: Upper abdominal pain, jd3 unspecified; Other ovarian cysts. Condition is Stable. Forms are Medication Reconciliation Form, Thank You Letter, Antibiotic Education, Prescription Opioid Use. Follow up: Emergency Department; When: As needed; Reason: Worsening of condition. Follow up: Private Physician; When: 2 - 3 days; Reason: Recheck today's complaints, Continuance of care, Re-evaluation by your physician. kb
--- NOTE | 2019-07-13 00:55 | ER ---
Nurse's Notes [facility] Name: Jennifer Goodwin Age: 44 yrs Sex: Female : 1975 Arrival Date: 07/12/2019 Time: 22:17 Bed 5 Private MD: Diagnosis: Upper abdominal pain, unspecified;Other ovarian cysts Presentation: 07/11 22:17 Chief complaint: Patient states: that for the past 4 days she has been having left fc upper quad pain and then approx 1 hr ago she started to have severe epigastric pain. Positive for nausea, but denies any vomiting or diarrhea. Pt is also diaphoretic. Coronavirus screen: Patient denies fever greater than 100.4F, cough, shortness of breath, or difficulty breathing. Ebola Screen: Patient negative for fever greater than or equal to 101.5 degrees Fahrenheit, and additional compatible Ebola Virus Disease symptoms Patient denies exposure to infectious person. Patient denies travel to an Ebola-affected area in the 21 days before illness onset. Initial Sepsis Screen: Does the patient meet any 2 criteria? No. Patient's initial sepsis screen is negative. Does the patient have a suspected source of infection? No. Patient's initial sepsis screen is negative. Risk Assessment: Do you want to hurt yourself or someone else? Patient reports no desire to harm self or others. Onset of symptoms was July 08, 2019. 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 Transition of care: patient was not received from another setting of care. 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 - Social history:: Smoking status: Patient denies any tobacco usage or history of. Patient uses alcohol, occasionally. Patient/guardian denies using street drugs. Screenin:54 Abuse screen: Denies threats or abuse. Nutritional screening: No deficits noted. jd3 Tuberculosis screening: No symptoms or risk factors identified. Fall Risk IV access (20 points). Ambulatory Aid- None/Bed Rest/Nurse Assist (0 pts). Gait- Normal/Bed Rest/Wheelchair (0 pts) Mental Status- Oriented to own ability (0 pts). Total Figueroa Fall Scale indicates No Risk (0-24 pts). Assessment: 22:51 General: Appears in no apparent distress. uncomfortable, Behavior is calm, cooperative, jd3 appropriate for age. Pain: Complains of pain in abdomen Quality of pain is described as sharp, tender. Neuro: Level of Consciousness is awake, alert, obeys commands, Oriented to person, place, time, situation. Cardiovascular: Denies chest pain, Capillary refill < 3 seconds Patient's skin is warm and dry. Respiratory: Airway is patent Respiratory effort is even, unlabored, Respiratory pattern is regular, symmetrical, Denies cough, shortness of breath. GI: Abdomen is flat, non-distended, Bowel sounds present X 4 quads. Abd is soft X 4 quads Abdomen is tender to palpation in right upper quad Reports upper abdominal pain, nausea, vomiting. : No signs and/or symptoms were reported regarding the genitourinary system. Denies burning with urination. EENT: No signs and/or symptoms were reported regarding the EENT system. Derm: Skin is intact, Skin is dry, Skin is normal, Skin temperature is warm. Musculoskeletal: Circulation, motion, and sensation intact. Range of motion: intact in all extremities. 23:44 Reassessment: Patient appears in no apparent distress at this time. Patient and/or jd3 family updated on plan of care and expected duration. Pain level reassessed. Patient is alert, oriented x 3, equal unlabored respirations, skin warm/dry/pink. Patient states feeling better. 07/12 01:24 Reassessment: Patient appears in no apparent distress at this time. Patient and/or jd3 family updated on plan of care and expected duration. Pain level reassessed. Patient is alert, oriented x 3, equal unlabored respirations, skin warm/dry/pink. Patient states feeling better. Vital Signs: 07/11 22:17 BP 159 / 104; Pulse 84; Resp 18; Temp 98.0(O); Pulse Ox 99% on R/A; Weight 65.77 kg fc (R); Height 4 ft. 11 in. (149.86 cm) (R); Pain 9/10; 23:44 BP 133 / 87; Pulse 65; Resp 17 S; Pulse Ox 100% on R/A; jd3 07/12 01:24 BP 134 / 89; Pulse 64; Resp 17 S; Pulse Ox 100% on R/A; jd3 07/11 22:17 Body Mass Index 29.29 (65.77 kg, 149.86 cm) ED Course: 07/11 22:17 Patient arrived in ED. fc 22:21 Triage completed. fc 22:23 Arm band placed on Patient placed in an exam room, on a stretcher. fc 22:24 Minna Doyle FNP-C is PHCP. kb 22:24 Dick Narvaez MD is Attending Physician. kb 22:28 Markie Vazquez RN is Primary Nurse. jd3 22:43 Inserted saline lock: 20 gauge in left antecubital area, using aseptic technique. Blood mt collected. 22:54 Patient has correct armband on for positive identification. Placed in gown. Bed in low jd3 position. Call light in reach. Side rails up X 1. Pulse ox on. NIBP on. 07/12 00:33 CT Abd/Pelvis - IV Contrast Only In Process Unspecified. EDMS 01:31 No provider procedures requiring assistance completed. IV discontinued, intact, jd3 bleeding controlled, No redness/swelling at site. Pressure dressing applied. Administered Medications: 07/11 22:50 Drug: NS 0.9% 1000 ml Route: IV; Rate: 1000 ml; Site: left antecubital; jd3 23:50 Follow up: Response: No adverse reaction; IV Status: Completed infusion; IV Intake: jd3 1000ml 22:50 Drug: Zofran (Ondansetron) 4 mg Route: IVP; Site: left antecubital; jd3 23:50 Follow up: Response: No adverse reaction jd3 22:50 Drug: morphine 4 mg Route: IVP; Site: left antecubital; jd3 23:50 Follow up: Response: No adverse reaction; RASS: Alert and Calm (0) jd3 Intake: 23:50 IV: 1000ml; Total: 1000ml. jd3 Outcome: 07/12 00:54 Discharge ordered by MD. law 01:31 Discharged to home ambulatory, with family. jd3 01:31 Condition: stable 01:31 Discharge instructions given to patient, Instructed on discharge instructions, follow up and referral plans. medication usage, Demonstrated understanding of instructions, follow-up care, medications, Prescriptions given X 1. 01:31 Patient left the ED. jd3 Signatures: Dispatcher [employer] EDMinna Kohli, NATALIE-Rommel ESTRADA-Justina Man, RN RN Shyla Elder mt, Jonathon, RN RN jd3
[2019-07-13 01:46] VITALS: TEMP 98
[2019-07-13 01:47] VITALS: O2SAT 100
[2019-07-13 01:49] VITALS: BP 134/89
--- NOTE | 2019-07-13 12:57 | RAD REPORT ---
EXAM DESCRIPTION: CT - Abdomen Pelvis W Contrast - 07/13/2019 12:32 am CLINICAL HISTORY: ABD PAIN TECHNIQUE: Contiguous axial images obtained through the abdomen and pelvis following the uneventful administration of IV contrast. Coronal and sagittal reformatted images were provided. This exam was performed according to our departmental dose-optimization program, which includes autom ated exposure control, adjustment of the mA and/or kV according to patient size and/or use of iterati ve reconstruction technique. COMPARISON: 05/18/2019 FINDINGS: Lung bases: Clear Liver: The liver is enlarged and diffusely low in density compatible with steatosis. Gallbladder and biliary system: Unremarkable Pancreas: Unremarkable Spleen: Unremarkable Adrenals: Unremarkable Kidneys: Normal renal cortical enhancement. Stable 1.5 cm cortical cyst at the upper pole on the righ t. Small bilateral calculi. No hydronephrosis. Bowel: Moderate stool. No obstruction. No appreciable mucosal thickening. Appendix: Normal caliber appendix. No findings to suggest acute appendicitis. Urinary bladder: Unremarkable Reproductive: 4.9 x 4.1 x 4.2 cm left adnexal cyst with heterogeneity along its periphery suggesting hemorrhagic component. 2 additional cysts on the left measuring 2 x 1.9 x 2 cm and 1.3 x 1.2 x 1.2 cm . The uterus and right ovary are unremarkable as visualized. Lymph nodes: No pathologically enlarged lymph nodes. Peritoneum: No focal fluid collection. No free air. Vessels: No abdominal aortic aneurysm. Abdominal wall: Tiny fat-containing umbilical hernia. Bones: Mild multilevel spondylosis. No acute fracture. IMPRESSION: 1. Multiple left ovarian cysts: 4.9 cm benign appearing ovarian cyst; 2.0 cm benign ap pearing ovarian cyst; 1.3 cm benign appearing ovarian cyst. Most severe: 4.9 cm benign appearing ov monalisa cyst. No follow-up imaging is recommended. Reference: J Am Vito Radiol 2013;10:675-681 2. Other findings as above. Electronically signed by: Humphrey Avila MD 07/13/2019 12:47 AM CDT Due to temporary technical issues with the PACS/Fluency reporting system, reports are being signed by the in house radiologist as a courtesy to ensure prompt reporting. The interpreting radiologist is f ully responsible for the content of the report.
== END 2019-07-13 01:31 | disposition home or self-care (01) ==
LOC: ER 22:06
DX: N83.299 Other ovarian cyst, unspecified side (principal); E11.9 Type 2 diabetes mellitus without complications; K21.9 Gastro-esophageal reflux disease without esophagitis
CPT/HCPCS: 85025; 80048; 36415; 80076; 83690; 74177; Q9967; J7030; J2405; 96361; 96374; 96375; 99284

== ENCOUNTER 2021-11-24 13:33 | Emergency (ER) | payer OTHER ==
--- OUTSIDE RECORDS SUMMARY | 2021-11-24 13:38 | XMS REPORT | Continuity of Care Document ---
:1975 Author Organization [facility] t Address [address] [place] [address] Care Team Providers Name Role Phone DONTE ELEONORA Primary Care Physician Unavailable SAVANNAH_Rommel Attending Clinician Unavailable Claudia Nuñez Attending Clinician [phone] Referred, Self Attending Clinician Unavailable Vaccine, Ang Db Cbc Fam Attending Clinician Unavailable Flori Coley MD Attending Clinician FLORI COLEY Attending Clinician Unavailable Paula Quach Attending Clinician Unavailable DASH MÉNDEZ Attending Clinician Unavailable SAVANNAH_Rommel Admitting Clinician Unavailable Referred, Self Admitting Clinician Unavailable Paula Quach Admitting Clinician Unavailable Payers Payer Name Policy Type Policy Number Effective Date Expiration Date Eusebio coello [employer] [id number] 2011 00:00:00 Problems This patient has no known problems. Allergies, Adverse Reactions, Alerts Allergy Allergy Status Severity Reaction(s) Onset Inactive Treating Comm ents Source Name Type Date Date Clinician NO KNOWN Drug Active Univers ALLERGIE Class it[facility] of [facility] Social History Social Habit Start Date Stop Date Quantity Comments Source Sex Assigned At [birth year] [facility] 00:00:00 00:00:00 Medical Branch Smoking Status Start Date Stop Date Source Unknown if ever smoked [facility] Medications This patient has no known medications. Immunizations Ordered Filled Immunization Date Status Comments [facility] e Immunization Name Name SARS-COV-2 COVID-19 2021-03-22 Completed Unive rsity of [facility]ERNA BOOSTER 00:00:00 [place] [facility] SARS-COV-2 COVID-19 2020-07-25 Completed Unive rsity of MODERNA VACCINE 00:00:00 [place] [facility] SARS-COV-2 COVID-19 2020-06-27 Completed Unive rsity of MODERNA VACCINE 00:00:00 [place] [facility] Procedures Procedure Date / Time Performed Performing Clinician [facility] german SARS-COV-2 COVID-19 2021-03-22 22:18:10 Doctor Unassigned, No [facility] [place] VACCINE Name Medical Branch BOOSTER,0.25ML,IM (MODERNA) Encounters Start End Encounter Admission Attending Care Care Encounter Source Date/Time Date/Time Type Type Clinicians Facility Department ID 2021-10-11 2021-10-11 Outpatient [facility]C [facility] [id number] [place] 09:29:00 09:29:[address] [facility] 2021-10-11 2021-10-11 Outpatient [place], [facility] [id number] 00:00:00 00:00:00 Claudia [id number] 2021-10-04 2021-10-04 Outpatient Referred, [facility] [id number] [facility] 12:00:00 12:00:00 Self [facility] 2021-09-27 2021-09-27 Outpatient [facility] [id number] [place] 12:03:00 12:03:00 0610 [facility] 2021-09-27 2021-09-27 Outpatient [place], [facility] [id number] 00:00:00 00:00:00 Claudia [id number] 2021-09-13 2021-09-13 Outpatient [facility] [id number] [place] 05:21:00 05:21:00 0527 [facility] 2021-09-13 2021-09-13 Outpatient [place], [facility] [id number] 00:00:00 00:00:00 Claudia [id number] 2021-09-06 2021-09-06 Outpatient [facility] 2021 [place] 12:21:00 12:21:00 0520 [facility] 2021-09-06 2021-09-06 Outpatient [place], [facility] [id number] 00:00:00 00:00:00 Claudia [id number] 2021-08-30 2021-08-30 Outpatient [facility] 2021 [place] 05:25:00 05:25:00 0513 [facility] 2021-08-30 2021-08-30 Outpatient [place], [facility] [id number] 00:00:00 00:00:00 Claudia [id number] 2021-07-19 2021-07-19 Outpatient [facility] 2021 [place] 05:24:00 05:24:00 0401 [facility] 2021-07-19 2021-07-19 Outpatient [place], [facility] [id number] 00:00:00 00:00:00 Claudia [id number] 2021-07-17 2021-07-17 Outpatient [facility] 2021 [place] 11:37:00 11:37:00 0330 [facility] 2021-07-17 2021-07-17 Outpatient [place], [facility] [id number] 00:00:00 00:00:00 Claudia [id number] 2021-07-12 2021-07-12 Outpatient [facility] 2021 [place] 02:59:00 02:59:00 0325 [facility] 2021-03-22 2021-03-22 Imm/Inj Vaccine, Ang Db Cbc Fam [facility] 1. [id number] Univers 16:02:47 16:12:47 Visit Flori Coley [facility] [id number] [facility] [id number] Ariel as PEDRO?BLEA [id number] [address] MEDICAL OFFICE BUILDING 2021-03-22 2021-03-22 Outpatient Diana COLEY [facility] [id number] Univers 16:10:00 16:10:[facility] 2020-10-24 2020-10-24 Outpatient LUPE Quach, [facility] JOANA [id number] [facility] 12:00:00 12:00:00 Paula [id number] [facility] 2020-07-25 2020-07-25 Outpatient Diana MÉNDEZ [facility] [id number] Univers 12:20:00 12:11:55 DASH [facility] 2020-06-27 2020-06-27 Outpatient Diana MÉNDEZ [facility] [id number] Univers 12:20:00 12:01:05 [facility] Results Test Description Test Time Test Comments Results Result Sour e Comments SCR MAMM 2020-10-15 BILATERAL NAMRATA 11:12:47 CAD DIGITAL Name: Shira : 1975 Sex: F - SCR MAMM BILATERAL NAMRATA CAD DIGITALBILATERAL DIGITAL SCREENING MAMMOGRAM 3D/2D WITH CAD: 1CLINICAL: Asymptomatic. Digital breast tomosynthesis was performed in addition to routine CC and MLO views. Current mammographic images were evaluated by [place] [employer] CAD (computer-aided detection) software. No prior exams were available for comparison. The tissue of both breasts is heterogeneously dense. This may lower the sensitivity of mammography. There are nodular densities bilaterally that most likely represent benign fibroadenomas, cysts, or nodular breast tissue, however this must be confirmed with ultrasound. No suspicious mass, architectural distortion, malignant type calcification, or lymph node abnormality detected. IMPRESSION: INCOMPLETE: ADDITIONAL IMAGING EVALUATION NEEDEDBilateral ultrasound recommended. Jessica trotter/penvicky:10/15/2020 11:12:47 Rope Twisting Machine Operator: Lisa Pruett MM, [facility] Mammographyletter sent: Additional Imaging Mammogram BI-RADS: 0 Incomplete: Additional Imaging Evaluation Needed
[2021-11-24 15:16] LABS: Urine Bacteria >50 /HPF (<20)
--- NOTE | 2021-11-24 15:20 | ER ---
Nurse's Notes [facility] Name: Jennifer Goodwin Age: 46 yrs Sex: Female : 1975 Arrival Date: 11/24/2021 Time: 13:36 Bed 12 Private MD: Ronald Mendes V Diagnosis: UTI/ Urinary tract infection, site not specified Presentation: 11/24 13:41 Chief complaint: Patient states: UTI since last week, has been taking left over iw Bactrim, started getting a yeast infection so she stopped it , called Cinthya, called in Diflucan, still having symptoms. Coronavirus screen: At this time, the client does not indicate any symptoms associated with coronavirus-19. Ebola Screen: Patient negative for fever greater than or equal to 101.5 degrees Fahrenheit, and additional compatible Ebola Virus Disease symptoms Patient denies exposure to infectious person. Patient denies travel to an Ebola-affected area in the 21 days before illness onset. No symptoms or risks identified at this time. Initial Sepsis Screen: Does the patient meet any 2 criteria? No. Patient's initial sepsis screen is negative. Does the patient have a suspected source of infection? No. Patient's initial sepsis screen is negative. Risk Assessment: Do you want to hurt yourself or someone else? Patient reports no desire to harm self or others. Onset of symptoms was November 21, 2021. 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 am2 13:36 Ronald Mendes MD is Private Physician. am2 13:43 Triage completed. iw 13:45 [facility] jl[facility] 13:45 Arm band placed on. iw 13:46 Dick Narvaez MD is Attending Physician. jl9 14:15 Elizabeth Mckay, RN is Primary Nurse. iw 14:16 Bed in low position. Call light in reach. Side rails up X 1. Door closed. Noise mb7 minimized. Warm blanket given. Administered Medications: 15:41 Drug: Rocephin (cefTRIAXone) 1 grams Route: IM; Site: left gluteus; iw 15:50 Follow up: Response: No adverse reaction iw Outcome: 15:20 Discharge ordered by . jl9 15:45 Patient left the ED. iw Signatures: Elizabeth Mckay, RN RN Herlinda Sandoval am2 Rosa Maria Kennedy mb7 Tom Lang jl9
--- NOTE | 2021-11-24 15:20 | EDPHYS ---
Physician Documentation [facility] Name: Jennifer Goodwin Age: 46 yrs Sex: Female : 1975 Arrival Date: 11/24/2021 Time: 13:36 Bed 12 Private MD: Ronald Mendes V ED Physician Dick Narvaez HPI: 11/24 14:07 This 46 yrs old Female presents to ER via Ambulatory with complaints of jl9 Urinary Problem. 14:07 Onset: The symptoms/episode began/occurred 1 week(s) ago. Associated signs and jl9 symptoms: Pertinent positives: dysuria. 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 - iw Historical: - Allergies: 13:43 No Known Allergies; iw - Home Meds: 13:43 Synjardy 5-1,000 mg oral tab 1 tab 2 times per day [Active]; Rybelsus 7 mg oral tab 1 iw tab once daily [Active]; rosuvastatin 20 mg oral tab 1 tab once daily [Active]; famotidine 20 mg Oral tab 1 tab 2 times per day [Active]; levocetirizine 5 mg oral tab 1 tab once daily [Active]; - PMHx: 13:43 Diabetes - NIDDM; GERD; Kidney stones; iw - PSHx: 13:45 Lithotripsy; iw ROS: 14:08 Constitutional: Negative for fever, chills, and weight loss, Eyes: Negative for injury, jl9 pain, redness, and discharge, ENT: Negative for injury, pain, and discharge, Neck: Negative for injury, pain, and swelling, Cardiovascular: Negative for chest pain, palpitations, and edema, Respiratory: Negative for shortness of breath, cough, wheezing, and pleuritic chest pain, Abdomen/GI: Negative for abdominal pain, nausea, vomiting, diarrhea, and constipation, Back: Negative for injury and pain. 14:08 MS/Extremity: Negative for injury and deformity, Skin: Negative for injury, rash, and discoloration, Neuro: Negative for headache, weakness, numbness, tingling, and seizure, Psych: Negative for depression, anxiety, suicide ideation, homicidal ideation, and hallucinations, Allergy/Immunology: Negative for hives, rash, and allergies, Endocrine: Negative for neck swelling, polydipsia, polyuria, polyphagia, and marked weight changes, Hematologic/Lymphatic: Negative for swollen nodes, abnormal bleeding, and unusual bruising. 14:08 : Positive for urinary symptoms, burning with urination. Exam: 14:08 Constitutional: This is a well developed, well nourished patient who is awake, alert, jl9 and in no acute distress. Head/Face: Normocephalic, atraumatic. Eyes: Pupils equal round and reactive to light, extra-ocular motions intact. Lids and lashes normal. Conjunctiva and sclera are non-icteric and not injected. Cornea within normal limits. Periorbital areas with no swelling, redness, or edema. ENT: Mucous membranes moist. Neck: Trachea midline, no thyromegaly or masses palpated, and no cervical lymphadenopathy. Supple, full range of motion without nuchal rigidity, or vertebral point tenderness. No Meningismus. Chest/axilla: Normal chest wall appearance and motion. Nontender with no deformity. No lesions are appreciated. Cardiovascular: Regular rate and rhythm with a normal S1 and S2. No gallops, murmurs, or rubs. Normal PMI, no JVD. No pulse deficits. Respiratory: Lungs have equal breath sounds bilaterally, clear to auscultation and percussion. No rales, rhonchi or wheezes noted. No increased work of breathing, no retractions or nasal flaring. Abdomen/GI: Soft, non-tender, with normal bowel sounds. No distension or tympany. No guarding or rebound. No evidence of tenderness throughout. Back: No spinal tenderness. No costovertebral tenderness. Full range of motion. Pelvic Exam: Normal external genitalia. Speculum exam with closed cervical os, no discharge or bleeding noted. Bimanual exam with normal adnexa, no adnexal or cervical motion tenderness. Normal uterus. 14:08 Skin: Warm, dry with normal turgor. Normal color with no rashes, no lesions, and no evidence of cellulitis. MS/ Extremity: Pulses equal, no cyanosis. Neurovascular intact. Full, normal range of motion. Neuro: Awake and alert, GCS 15, oriented to person, place, time, and situation. Cranial nerves II-XII grossly intact. Motor strength 5/5 in all extremities. Sensory grossly intact. Cerebellar exam normal. Normal gait. Psych: Awake, alert, with orientation to person, place and time. Behavior, mood, and affect are within normal limits. 14:08 : Bladder: tenderness. Vital Signs: 13:41 BP 142 / 96; Pulse 94; Resp 16; Pulse Ox 96% on R/A; iw MDM: 13:46 Patient medically screened. jl9 14:09 Data reviewed: vital signs, nurses notes. jl9 15:19 Counseling: I had a detailed discussion with the patient and/or guardian regarding: the jl9 historical points, exam findings, and any diagnostic results supporting the discharge/admit diagnosis, lab results, the need for outpatient follow up. 11/24 14:20 Order name: Urine Microscopic Only; Complete Time: 15:18 em1 11/24 13:46 Order name: Urine Dipstick-Ancillary (obtain specimen); Complete Time: 14:14 jl9 11/24 15:19 Order name: Urine Culture EDMS Administered Medications: 15:41 Drug: Rocephin (cefTRIAXone) 1 grams Route: IM; Site: left gluteus; iw 15:50 Follow up: Response: No adverse reaction iw Disposition Summary: 11/24/21 15:20 Discharge Ordered Location: Home jl9 Condition: Stable jl9 Diagnosis - UTI/ Urinary tract infection, site not specified jl9 Followup: jl9 - With: Private Physician - When: 1 - 2 days - Reason: Recheck today's complaints, Continuance of care, Re-evaluation by your physician Discharge Instructions: - Discharge Summary Sheet jl9 - Urinary Tract Infection, Adult, [id number] jl9 Forms: - Medication Reconciliation Form jl9 - Thank You Letter jl9 - Antibiotic Education jl9 - Prescription Opioid Use jl9 Prescriptions: - Diflucan 150 mg Oral Tablet - take 1 tablet by ORAL route one time for 1 day; 1 tablet; Refills: 0, Product jl9 Selection Permitted - Pyridium 200 mg Oral Tablet - take 1 tablet by ORAL route every 8 hours for 3 days; 9 tablet; Refills: 0, jl9 Product Selection Permitted - Cipro 500 mg Oral Tablet - take 1 tablet by ORAL route every 12 hours for 7 days; 14 tablet; Refills: 0, jl9 Product Selection Permitted Signatures: Dispatcher [employer] EDMS Elizabeth Mckay RN RN iw Linares, John jl9 Corrections: (The following items were deleted from the chart) 14:24 14:17 URINALYSIS+U.LAB.BRZ ordered. EDMS EDMS
[2021-11-24] MEDS ORDERED: LIDOCAINE 1% MPF 2 ML AMPULE ONE (15:41)
[2021-11-24] MEDS ORDERED: CEFTRIAXONE 1000 MG/VIAL ONE (15:41)
[2021-11-24 15:51] VITALS: BP 142/96; O2SAT 96
== END 2021-11-24 15:45 | disposition home or self-care (01) ==
LOC: ER 13:33
DX: N39.0 Urinary tract infection, site not specified (principal); E11.9 Type 2 diabetes mellitus without complications; Z87.442 Personal history of urinary calculi
CPT/HCPCS: 81015; 87077; 87086; 87088; 87186; 96372; 99282

== ENCOUNTER 2021-11-24 20:41 | Emergency (ER) | payer OTHER ==
--- OUTSIDE RECORDS SUMMARY | 2021-11-24 20:44 | XMS REPORT | Continuity of Care Document ---
:1975 Author Organization [facility] t Address [address] [place] [address] Care Team Providers Name Role Phone DONTE ELEONORA Primary Care Physician Unavailable SAVANNAH_Rommel Attending Clinician Unavailable Claudia Nuñez Attending Clinician [phone] Referred, Self Attending Clinician Unavailable Vaccine, Ang Db Cbc Fam Attending Clinician Unavailable Flori Coley MD Attending Clinician FLORI COLEY Attending Clinician Unavailable Paula Quach Attending Clinician Unavailable DASH MÉNDEZ Attending Clinician Unavailable SAVANNAH_Rommel Admitting Clinician Unavailable Referred, Self Admitting Clinician Unavailable Paula Quach Admitting Clinician Unavailable Payers Payer Name Policy Type Policy Number Effective Date Expiration Date Eusebio coello [employer] [id number] 2011 00:00:00 Problems This patient has no known problems. Allergies, Adverse Reactions, Alerts Allergy Allergy Status Severity Reaction(s) Onset Inactive Treating Comm ents Source Name Type Date Date Clinician NO KNOWN Drug Active Univers ALLERGIE Class ity of S [facility] Social History Social Habit Start Date Stop Date Quantity Comments Source Sex Assigned At [birth year] [facility] 00:00:00 00:00:00 Medical Branch Smoking Status Start Date Stop Date Source Unknown if ever smoked [facility] Medications This patient has no known medications. Immunizations Ordered Filled Immunization Date Status Comments [facility] e Immunization Name Name SARS-COV-2 COVID-19 2021-03-22 Completed Unive rsity of MODERNA BOOSTER 00:00:00 [place] [facility] VACC[facility] SARS-COV-2 COVID-19 2020-07-25 Completed Unive rsity of MODERNA VACCINE 00:00:00 [place] [facility] SARS-COV-2 COVID-19 2020-06-27 Completed Unive rsity of MODERNA VACCINE 00:00:00 [place] [facility] Procedures Procedure Date / Time Performed Performing Clinician [facility] german SARS-COV-2 COVID-19 2021-03-22 22:18:10 Doctor Unassigned, No [facility] [place] VACCINE Name Medical Branch BOOSTER,0.25ML,IM (MODERNA) Encounters Start End Encounter Admission Attending Care Care Encounter Source Date/Time Date/Time Type Type Clinicians Facility Department ID 2021-10-11 2021-10-11 [address] [facility] [id number] [place] 09:29:00 09:29:00 0624 [facility] 2021-10-11 2021-10-11 Outpatient [place], [facility] [id number] 00:00:00 00:00:00 Claudia [id number] 2021-10-04 2021-10-04 Outpatient Referred, [facility] [id number] [facility] 12:00:00 12:00:00 Self 47 [facility] 2021-09-27 2021-09-[address] [facility] [id number] [place] 12:03:00 12:03:00 0610 [facility] 2021-09-27 2021-09-27 Outpatient [place], [facility] [id number] 00:00:00 00:00:00 Claudia [id number] 2021-09-13 2021-09-[address] [facility] [id number] [place] 05:21:00 05:21:00 0527 [facility] 2021-09-13 2021-09-13 Outpatient [place], [facility] [id number] 00:00:00 00:00:00 Claudia [id number] 2021-09-06 2021-09-[address] [facility] 2021 [place] 12:21:00 12:21:00 0520 [facility] 2021-09-06 2021-09-06 Outpatient [place], [facility] [id number] 00:00:00 00:00:00 Claudia [id number] 2021-08-30 2021-08-30 [address] [facility] 2021 [place] 05:25:00 05:25:00 0513 [facility] 2021-08-30 2021-08-30 Outpatient [place], [facility] [id number] 00:00:00 00:00:00 Claudia [id number] 2021-07-19 2021-07-[address] [facility] 2021 [place] 05:24:00 05:24:00 0401 [facility] 2021-07-19 2021-07-19 Outpatient [place], [facility] [id number] 00:00:00 00:00:00 Claudia [id number] 2021-07-17 2021-07-17 [address] [facility] 2021 [place] 11:37:00 11:37:00 0330 [facility] 2021-07-17 2021-07-17 Outpatient [place], [facility] [id number] 00:00:00 00:00:00 Claudia [id number] 2021-07-12 2021-07-12 [address] [facility] 2021 [place] 02:59:00 02:59:00 0325 [facility] 2021-03-22 2021-03-22 Imm/Inj Vaccine, Ang Db Cbc Fam [facility] [id number]. [id number] Univers 16:02:47 16:12:47 Visit Flori Coley [facility] [id number] [facility] [id number] Ariel as PEDRO?BLEA [id number] [address] MEDICAL OFFICE BUILDING 2021-03-22 2021-03-22 Outpatient Diana COLEY [facility] [id number] Univers 16:10:00 [facility]10[facility] 2020-10-24 Outpatient LUPE Quach, [facility] JOANA [id number] [facility] 12:00:00 12:00:00 Paula [id number] [facility] 2020-07-25 2020-07-25 Outpatient Diana MÉNDEZ [facility] [id number] Univers 12:20:00 12:11:55 DASH [facility] 2020-06-27 2020-06-27 Outpatient Diana MÉNDEZ [facility] [id number] Univers 12:20:00 12:01:05 [facility] Results Test Description Test Time Test Comments Results Result Sour e Comments SCR MAMM 2020-10-15 BILATERAL NAMRATA 11:12:47 CAD DIGITAL Name: Shira : 1975 Sex: F - SCR MAMM BILATERAL NAMRATA CAD DIGITALBILATERAL DIGITAL SCREENING MAMMOGRAM 3D/2D WITH CAD: 1CLINICAL: Asymptomatic. Digital breast tomosynthesis was performed in addition to routine CC and MLO views. Current mammographic images were evaluated by [employer] ([employer] CAD (computer-aided detection) software. No prior exams [...] EVALUATION NEEDEDBilateral ultrasound recommended. Jessica trotter/penvicky:10/15/2020 11:12:47 Electronic Organ Mechanic: Lisa Pruett MM, [facility] Mammographyletter sent: Additional Imaging Mammogram BI-RADS: 0 Incomplete: Additional Imaging Evaluation Needed
--- NOTE | 2021-11-24 22:11 | RAD REPORT ---
EXAM DESCRIPTION: CT - Stone Protocol - 11/24/2021 10:02 pm CLINICAL HISTORY: Abdominal pain. Right flank COMPARISON: 2019 TECHNIQUE: Computed axial tomography of the abdomen pelvis was obtained without oral or IV contrast. Lack of IV and oral contrast limits evaluation of solid organs, appendix, bowel, and vessels. Johnson l reformatted images were obtained and reviewed. All CT scans are performed using dose optimization technique as appropriate and may include automated exposure control or mA/KV adjustment according to patient size. FINDINGS: Small bilateral renal calculi. Mild right hydronephrosis. 4 millimeter calculus mid right ureter. No bladder calculus The liver, spleen, pancreas and adrenals appear grossly normal There is no evidence of diverticulitis. The appendix appears normal Mild posterior subluxation L5 on S1 IMPRESSION: 4 millimeter calculus mid right ureter resulting in mild right hydronephrosis
[2021-11-24] MEDS ORDERED: NA CHLORIDE 0.9% 1,000 ML ONE (22:27)
[2021-11-24] MEDS ORDERED: MORPHINE 4 MG/ML SYR ONE (22:27)
[2021-11-24] MEDS ORDERED: ONDANSETRON 4 MG/2 ML VIAL ONE (22:27)
[2021-11-24 22:52] LABS: Absolute Lymphocytes (CBC) 1.8 K/uL (0.7-4.9); Hematocrit 41.6 % (36.0-45.0); Lymphocytes % 13.2 % (15.3-44.8); MCV 87.3 fL (80-100); MPV 8.1 fL (7.6-11.3); RBC Red Blood Cell Count 4.77 M/uL (3.86-4.86)
[2021-11-24 22:59] LABS: Albumin 3.9 g/dL (3.4-5.0); Bilirubin Total 0.7 mg/dL (0.2-1.0); Potassium 3.8 mmol/L (3.5-5.1); Protein, Total 7.6 g/dL (6.4-8.2)
[2021-11-24 23:17] LABS: Urine Blood 1+ (Negative); Urine Glucose 2+ (Negative); Urine Protein 2+ (Negative); Urine Specific Gravity 1.025 (1.005-1.030); Urine pH 6.5 (5.0-7.0)
[2021-11-24 23:28] LABS: Urine Specific Gravity/Preg 1.025 (1.005-1.030)
[2021-11-24 23:59] LABS: Urine Bacteria <20 /HPF (<20); Urine RBC <5 /HPF (None Seen)
--- NOTE | 2021-11-25 00:47 | ER ---
Nurse's Notes [facility] Name: Jennifer Goodwin Age: 46 yrs Sex: Female : 1975 Arrival Date: 11/24/2021 Time: 20:43 Bed 18 Private MD: Diagnosis: UTI/ Urinary tract infection, site not specified;Ureterolithiasis, 4mm, right mid ureter Presentation: 11/24 20:56 Chief complaint: Patient states: right sided kidney pain " I have a sponge kidney, I aa9 was here 5 hours ago for UTI, I have had kidney stones in the past at least twice a year for the last 10 years.". Coronavirus screen: Vaccine status: Patient reports receiving the 2nd dose of the covid vaccine. Ebola Screen: No symptoms or risks identified at this time. 20:56 Method Of Arrival: Ambulatory aa9 21:00 Initial Sepsis Screen: Does the patient meet any 2 criteria? Temp <36.0*C (96.8*F)) or aa9 > 38.3*C (100.9*F). No. Patient's initial sepsis screen is negative. Risk Assessment: Do you want to hurt yourself or someone else? Patient reports no desire to harm self or others. Onset of symptoms was November 24, 2021 at 20:00. 21:00 Acuity: PATTIE 3 aa9 21:28 Initial Sepsis Screen: Does the patient have a suspected source of infection? Yes: tw5 Dysuria/Frequency/Urgency/UTI. Triage Assessment: 21:02 General: Appears distressed, comfortable, Behavior is calm, cooperative, anxious. Pain: aa9 Complains of pain in right mid back and right low back Pain currently is 7 out of 10 on a pain scale. Pain began 1 hour ago. GI: No deficits noted. 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 - Social history:: Smoking status: Patient denies any tobacco usage or history of. Screenin:26 Abuse screen: Denies threats or abuse. Denies injuries from another. Nutritional tw5 screening: No deficits noted. Tuberculosis screening: No symptoms or risk factors identified. Fall Risk None identified. Assessment: 21:26 General: Reports "I think I am trying to catch a kidney stone. I was here this morning tw5 with a UTI. I have kidney stones all the time.". Pain: Complains of pain in right low back Pain currently is 7 out of 10 on a pain scale. Neuro: Level of Consciousness is awake, alert, obeys commands. Respiratory: Airway is patent Trachea midline Respiratory effort is even, unlabored. : Reports pain in right in lower back. 21:28 GI: Bowel sounds present X 4 quads. Abd is soft and non tender X 4 quads. tw5 22:29 Reassessment: Patient appears in no apparent distress at this time. No changes from tw5 previously documented assessment. Patient and/or family updated on plan of care and expected duration. Pain level reassessed. Patient is alert, oriented x 3, equal unlabored respirations, skin warm/dry/pink. 22:29 Pain: Pain currently is 7 out of 10 on a pain scale. tw5 11/25 01:04 General: patient is requesting more pain medication prior to discharge. tw5 01:13 Pain: Denies pain. tw5 Vital Signs: 11/24 21:03 BP 144 / 83; Pulse 70; Resp 16 S; Temp 99.1(O); Pulse Ox 100% on R/A; aa9 21:06 BP 144 / 83; Pulse 70; Resp 16 S; Temp 99.1(O); Pulse Ox 100% on R/A; Pain 7/10; aa9 21:26 BP 138 / 80; Pulse 83; Resp 18; Pulse Ox 96% on R/A; Pain 8/10; tw5 22:29 Pulse 67; Resp 20; Pulse Ox 95% on R/A; Pain 7/10; tw5 22:53 BP 121 / 73; Pulse 71; Resp 16 S; Pulse Ox 95% on R/A; as6 23:35 Pain 6/10; tw5 23:36 BP 131 / 80; Pulse 80; Resp 18; Pulse Ox 100% ; Pain 6/10; tw5 0808 01:04 BP 102 / 73; Pulse 71; Resp 12; Pulse Ox 95% on R/A; Pain 7/10; tw5 01:12 Pain 0/10; tw5 01:12 Pain 0/10; tw5 ED Course: 11/24 20:43 Patient arrived in ED. bp1 20:51 Alejandro May, YEN is Primary Nurse. as6 21:01 Andres Sylvester MD is Attending Physician. mh7 21:01 Triage completed. aa9 21:06 Arm band placed on. aa9 21:26 Patient has correct armband on for positive identification. Placed in gown. Bed in low tw5 position. Call light in reach. Side rails up X 1. Client placed on continuous cardiac and pulse oximetry monitoring. NIBP monitoring applied. Door closed. Moved to private room. Warm blanket given. Verbal reassurance given. 21:26 No provider procedures requiring assistance completed. tw5 22:04 CT Stone Protocol In Process Unspecified. EDMS 22:29 Awaiting lab results. tw5 22:29 CBC with Diff Sent. tw5 22:29 CMP Sent. tw5 22:29 Lipase Sent. tw5 22:29 Initial lab(s) drawn, by me, sent to lab. Inserted saline lock: 20 gauge 24 gauge tw5 antecubital area, using aseptic technique. Blood collected. 23:36 Urine Microscopic Only Sent. tw5 23:36 Urine Culture Sent. tw5 11/25 00:45 Adam Lindo MD is Referral Physician. 7 01:13 IV discontinued, intact, bleeding controlled, No redness/swelling at site. Pressure tw5 dressing applied. Administered Medications: 11/24 22:29 Drug: NS 0.9% 1000 ml Route: IV; Rate: 1 bolus; Site: right antecubital; tw5 23:36 Follow up: Response: No adverse reaction; IV Status: Completed infusion; IV Intake: tw5 1000ml 22:29 Drug: Zofran (Ondansetron) 4 mg Route: IVP; Site: right antecubital; tw5 23:35 Follow up: Response: No adverse reaction tw5 22:29 Drug: morphine 4 mg Route: IVP; Infused Over: 4 mins; Site: right antecubital; tw5 23:35 Follow up: Pain 6/10 Adult; Response: No adverse reaction; Pain is decreased; RASS: tw5 Alert and Calm (0) 11/25 01:04 Drug: Rocephin (cefTRIAXone) 1 grams Route: IV; Rate: per protocol; Site: right as6 antecubital; 01:09 Follow up: Response: No adverse reaction; IV Status: Completed infusion; IV Intake: [id number] 01:09 Drug: morphine 4 mg Route: IVP; Infused Over: 4 mins; Site: right antecubital; tw5 01:12 Follow up: Pain 0/10 Adult; Response: No adverse reaction; Pain is decreased; RASS: tw5 Alert and Calm (0) 01:10 Drug: Ketorolac 30 mg Route: IVP; Site: right antecubital; tw5 01:12 Follow up: Pain 0/10 Adult; Response: No adverse reaction; Pain is decreased; RASS: tw5 Alert and Calm (0) Medication: 11/24 21:26 VIS not applicable for this client. Intake: 23:36 IV: 1000ml; Total: 1000ml. 11/25 01:09 IV: 50ml; Total: 1050ml. Outcome: 00:47 Discharge ordered by . 7 01:13 Discharged to home ambulatory, with family. 01:13 Condition: improved 01:13 Discharge instructions given to patient, Instructed on discharge instructions, follow up and referral plans. Demonstrated understanding of instructions, follow-up care, medications, Prescriptions given X 1. 01:13 Patient left the ED. Signatures: Dispatcher [employer] EDMS Anabel Noyola Maurice, MD MD mh7 Wood, Tiffany tw5 Alejandro May RN RN as6 Roxann Martinez RN RN aa9 Corrections: (The following items were deleted from the chart) 11/24 21:08 20:56 Chief complaint: Patient states: right sided kidney pain aa9 aa9
--- NOTE | 2021-11-25 00:48 | EDPHYS ---
Physician Documentation [facility] Name: Jennifer Goodwin Age: 46 yrs Sex: Female : 1975 Arrival Date: 11/24/2021 Time: 20:43 Bed 18 Private MD: ED Physician Andres Sylvester HPI: 11/24 21:30 This 46 yrs old Female presents to ER via Ambulatory with complaints of mh7 Possible Kidney Stone. 21:30 The patient complains of pain in the right flank. The pain does not radiate. Onset: The mh7 symptoms/episode began/occurred today. Modifying factors: The symptoms are alleviated by nothing. the symptoms are aggravated by nothing. Associated signs and symptoms: Pertinent positives: dysuria, urinary frequency, Pertinent negatives: diarrhea, dizziness, fever, headache, hematuria, nausea, pain radiating to the lower extremities, vomiting. Severity of pain: At its worst the pain was moderate today, in the emergency department the pain is unchanged. The patient has been recently seen at the [facility] Emergency Department, today. She was seen here earlier today and diagnosed with a UTI with dysuria for one week. She states that later today she started having right flank area pain and is concerned about kidney stones.. 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 - Social history:: Smoking status: Patient denies any tobacco usage or history of. ROS: 21:30 Constitutional: Negative for fever, chills, and weight loss, Eyes: Negative for injury, mh7 pain, redness, and discharge, ENT: Negative for injury, pain, and discharge, Neck: Negative for injury, pain, and swelling, Cardiovascular: Negative for chest pain, palpitations, and edema, Respiratory: Negative for shortness of breath, cough, wheezing, and pleuritic chest pain, Abdomen/GI: Negative for abdominal pain, nausea, vomiting, diarrhea, and constipation, MS/Extremity: Negative for injury and deformity, Skin: Negative for injury, rash, and discoloration, Neuro: Negative for headache, weakness, numbness, tingling, and seizure, Psych: Negative for depression, anxiety, suicide ideation, homicidal ideation, and hallucinations, Allergy/Immunology: Negative for hives, rash, and allergies, Endocrine: Negative for neck swelling, polydipsia, polyuria, polyphagia, and marked weight changes, Hematologic/Lymphatic: Negative for swollen nodes, abnormal bleeding, and unusual bruising. Exam: 21:30 Head/Face: Normocephalic, atraumatic. Eyes: Pupils equal round and reactive to light, mh7 extra-ocular motions intact. Lids and lashes normal. Conjunctiva and sclera are non-icteric and not injected. Cornea within normal limits. Periorbital areas with no swelling, redness, or edema. Neck: Trachea midline, no thyromegaly or masses palpated, and no cervical lymphadenopathy. Supple, full range of motion without nuchal rigidity, or vertebral point tenderness. No Meningismus. Chest/axilla: Normal chest wall appearance and motion. Nontender with no deformity. No lesions are appreciated. Cardiovascular: Regular rate and rhythm with a normal S1 and S2. No gallops, murmurs, or rubs. Normal PMI, no JVD. No pulse deficits. Respiratory: Lungs have equal breath sounds bilaterally, clear to auscultation and percussion. No rales, rhonchi or wheezes noted. No increased work of breathing, no retractions or nasal flaring. Abdomen/GI: Soft, non-tender, with normal bowel sounds. No distension or tympany. No guarding or rebound. No evidence of tenderness throughout. 21:30 Skin: Warm, dry with normal turgor. Normal color with no rashes, no lesions, and no evidence of cellulitis. MS/ Extremity: Pulses equal, no cyanosis. Neurovascular intact. Full, normal range of motion. Neuro: Awake and alert, GCS 15, oriented to person, place, time, and situation. Cranial nerves II-XII grossly intact. Motor strength 5/5 in all extremities. Sensory grossly intact. Cerebellar exam normal. Normal gait. Psych: Awake, alert, with orientation to person, place and time. Behavior, mood, and affect are within normal limits. 21:30 Constitutional: The patient appears in no acute distress, alert, awake, uncomfortable. 21:30 Back: normal spinal alignment noted, CVA tenderness, that is moderate, is noted on the right, vertebral tenderness, is not appreciated, muscle spasm, is not present. Vital Signs: 21:03 BP 144 / 83; Pulse 70; Resp 16 S; Temp 99.1(O); Pulse Ox 100% on R/A; aa9 21:06 BP 144 / 83; Pulse 70; Resp 16 S; Temp 99.1(O); Pulse Ox 100% on R/A; Pain 7/10; aa9 21:26 BP 138 / 80; Pulse 83; Resp 18; Pulse Ox 96% on R/A; Pain 8/10; tw5 22:29 Pulse 67; Resp 20; Pulse Ox 95% on R/A; Pain 7/10; tw5 22:53 BP 121 / 73; Pulse 71; Resp 16 S; Pulse Ox 95% on R/A; as6 23:35 Pain 6/10; tw5 23:36 BP 131 / 80; Pulse 80; Resp 18; Pulse Ox 100% ; Pain 6/10; tw5 08/08 01:04 BP 102 / 73; Pulse 71; Resp 12; Pulse Ox 95% on R/A; Pain 7/10; tw5 01:12 Pain 0/10; tw5 01:12 Pain 0/10; tw5 MDM: 00:37 Differential diagnosis: nephrolithiasis, pyelonephritis, UTI. Data reviewed: vital mh7 signs, nurses notes, lab test result(s), CBC, electrolytes, urinalysis, radiologic studies, CT scan. Data interpreted: Pulse oximetry: on room air is 100 %. Interpretation: normal. Counseling: I had a detailed discussion with the patient and/or guardian regarding: the historical points, exam findings, and any diagnostic results supporting the discharge/admit diagnosis, lab results, radiology results, the need for further work-up and treatment in the hospital. Response to treatment: the patient's symptoms have resolved after treatment, the patient's blood pressure is in an acceptable range, mental status has returned to baseline, the patient no longer shows bradycardia, the patient is not short of breath, the patient is not tachycardic, the patient's pain is gone, the patient's temperature has normalized, the patient is now symptom free, patient is well hydrated. Refusal of service: The patient/guardian displays adequate decision making capability and despite a detailed discussion of alternatives, benefits, risks, and consequences refuses: Admission to the hospital for further work-up and treatment. ED course: Feels better, well appearing, NAD, VSS, no focal neurological deficits. No flank pain, abdominal pain, nausea, vomiting, or other complaints. Tolerating PO intake without difficulty. Discussed test results and findings and recommended admission for further care and evaluation due concurrent UTI and ureter stone. Patient declined admission and possible transfer. States that she will follow up with her own doctor. Advised to return to the ER if return of symptoms or any other concerns. She has filled prescription for Cipro and Tamsulosin at home already. She requests to be discharged from the ER at this time.. 00:47 Patient medically screened. [facility] 11/24 21:38 Order name: CBC with Diff; Complete Time: 23:39 [facility] 11/24 21:38 Order name: CMP; Complete Time: 23:39 [facility] 11/24 21:38 Order name: Lipase; Complete Time: 23:39 [facility] 11/24 21:38 Order name: Urine Microscopic Only; Complete Time: 00:25 [facility] 11/24 21:38 Order name: Urine Culture [facility] 11/24 23:17 Order name: Urine --Ancillary (enter results); Complete Time: 23:39 mw2 11/24 21:38 Order name: CT Stone Protocol; Complete Time: 22:27 [facility] 11/24 23:17 Order name: Urine Dipstick-Ancillary; Complete Time: 23:39 EDMS 11/24 21:38 Order name: IV Saline Lock; Complete Time: 22:29 [facility] 11/24 21:38 Order name: Labs collected and sent; Complete Time: 22:29 [facility] 11/24 21:38 Order name: Urine Dipstick-Ancillary (obtain specimen); Complete Time: 23:36 [facility] Administered Medications: 11/24 22:29 Drug: NS 0.9% 1000 ml Route: IV; Rate: 1 bolus; Site: right antecubital; tw5 23:36 Follow up: Response: No adverse reaction; IV Status: Completed infusion; IV Intake: tw5 1000ml 22:29 Drug: Zofran (Ondansetron) 4 mg Route: IVP; Site: right antecubital; tw5 23:35 Follow up: Response: No adverse reaction tw5 22:29 Drug: morphine 4 mg Route: IVP; Infused Over: 4 mins; Site: right antecubital; tw5 23:35 Follow up: Pain 6/10 Adult; Response: No adverse reaction; Pain is decreased; RASS: tw5 Alert and Calm (0) 11/25 01:04 Drug: Rocephin (cefTRIAXone) 1 grams Route: IV; Rate: per protocol; Site: right as6 antecubital; 01:09 Follow up: Response: No adverse reaction; IV Status: Completed infusion; IV Intake: 06gcmb4 01:09 Drug: morphine 4 mg Route: IVP; Infused Over: 4 mins; Site: right antecubital; tw5 01:12 Follow up: Pain 0/10 Adult; Response: No adverse reaction; Pain is decreased; RASS: tw5 Alert and Calm (0) 01:10 Drug: Ketorolac 30 mg Route: IVP; Site: right antecubital; tw5 01:12 Follow up: Pain 0/10 Adult; Response: No adverse reaction; Pain is decreased; RASS: tw5 Alert and Calm (0) Disposition Summary: 11/25/21 00:47 Discharge Ordered Location: Home [facility] Problem: an acute exacerbation [facility] Symptoms: have improved [facility] Condition: Stable [facility] Diagnosis - UTI/ Urinary tract infection, site not specified [facility] - Ureterolithiasis, 4mm, right mid ureter [facility] Followup: [facility] - With: Private Physician - When: 1 - 2 days - Reason: Worsening of condition, Recheck today's complaints, Continuance of care, Re-evaluation by your physician Followup: [facility] - With: Adam Lindo MD - When: 1 - 2 days - Reason: Worsening of condition, Recheck today's complaints Discharge Instructions: - Discharge Summary Sheet [facility] - Kidney Stones, [id number] [facility] - Urinary Tract Infection, Adult, [id number] [facility] Forms: - Medication Reconciliation Form [facility] - Thank You Letter [facility] - Antibiotic Education [facility] - Prescription Opioid Use [facility] Prescriptions: - ketorolac 10 mg Oral tablet - take 1 tablet by ORAL route every 6 hours As needed not to exceed 40 mg in [facility] 24hrs; 15 tablet; Refills: 0, Product Selection Permitted Signatures: Dispatcher [employer] Andres Wood MD MD 7 Salma Rosa tw5 Alejandro May, RN RN as6 Roxann Martinez RN RN aa9
[2021-11-25] MEDS ORDERED: CEFTRIAXONE 1000 MG/VIAL ONE (01:06)
[2021-11-25] MEDS ORDERED: NA CHLORIDE 0.9% 50 ML ONE (01:06)
[2021-11-25] MEDS ORDERED: MORPHINE 4 MG/ML SYR ONE (01:15)
[2021-11-25] MEDS ORDERED: KETOROLAC 30 MG/ML INJ ONE (01:15)
[2021-11-25 02:48] VITALS: TEMP 99.1
[2021-11-25 03:23] VITALS: BP 102/73; O2SAT 95
== END 2021-11-25 01:13 | disposition home or self-care (01) ==
LOC: ER 20:41
DX: N39.0 Urinary tract infection, site not specified (principal); N20.1 Calculus of ureter; Z87.442 Personal history of urinary calculi; E11.9 Type 2 diabetes mellitus without complications
CPT/HCPCS: 85025; 36415; 81025; 83690; 80053; 76377; 74176; J7030; J2405; 81003; 81015; 96361; 96374; 96375; 99284

== ENCOUNTER 2021-12-18 23:36 | Emergency (ER) | payer OTHER ==
--- OUTSIDE RECORDS SUMMARY | 2021-12-18 23:39 | XMS REPORT | Continuity of Care Document ---
:1975 Author Organization [facility] t Address [address] [place] [address] Care Team Providers Name Role Phone DONTE ELEONORA Primary Care Physician Unavailable SAVANNAH_Rommel Attending Clinician Unavailable Claudia Nuñez Attending Clinician [phone] Referred, Self Attending Clinician Unavailable Vaccine, Ang Db Cbc Fam Attending Clinician Unavailable Flori Coley MD Attending Clinician FLORI COLEY Attending Clinician Unavailable Paula Quach Attending Clinician Unavailable DASH MÉNDEZ Attending Clinician Unavailable SAVANNAH_Rommel Admitting Clinician Unavailable Referred, Self Admitting Clinician Unavailable Paula Quach Admitting Clinician Unavailable Payers Payer Name Policy Type Policy Number Effective Date Expiration Date Eusebio coello [employer] [id number] 2011 00:00:00 Problems This patient has no known problems. Allergies, Adverse Reactions, Alerts Allergy Allergy Status Severity Reaction(s) Onset Inactive Treating Comm ents Source Name Type Date Date Clinician NO KNOWN Drug Active [facility]ERGIE [facility] Social History Social Habit Start Date Stop Date Quantity Comments Source Sex Assigned At [birth year] [facility] 00:00:00 00:00:00 Medical Branch Smoking Status Start Date Stop Date Source Unknown if ever smoked [facility] Medications This patient has no known medications. Immunizations Ordered Filled Immunization Date Status Comments [facility] e Immunization Name Name SARS-COV-2 COVID-19 2021-03-22 Completed Unive rsity of [facility]ER 00:00:00 [place] [facility] VACC[facility] SARS-COV-2 COVID-19 2020-07-25 Completed Unive rsity of [facility]ERNA VACCINE 00:00:00 [place] [facility] SARS-COV-2 COVID-19 2020-06-27 Completed Unive rsity of [facility]ER[facility] VACCINE 00:00:00 [place] [facility] Procedures Procedure Date / Time Performed Performing Clinician [facility] german SARS-COV-2 COVID-19 2021-03-22 22:18:10 Doctor Unassigned, No [facility] [place] VACCINE Name Medical Branch BOOSTER,0.25ML,IM (MODERNA) Encounters Start End Encounter Admission Attending Care Care Encounter Source Date/Time Date/Time Type Type Clinicians Facility Department ID 2021-10-11 2021-10-11 Outpatient [facility]C [facility] [id number] [place] 09:29:00 09:29:00 0624 [facility] 2021-10-11 2021-10-11 Outpatient [place], [facility] [id number] 00:00:00 00:00:00 Claudia [id number] 2021-10-04 2021-10-04 Outpatient Referred, [facility] [id number] [facility] 12:00:00 12:00:00 Self 47 [facility] 2021-09-27 2021-09-27 Outpatient [facility] [id number] [place] 12:03:00 12:03:00 0610 [facility] 2021-09-27 2021-09-27 Outpatient [place], [facility] [id number] 00:00:00 00:00:00 Claudia [id number] 2021-09-13 2021-09-13 Outpatient [facility] [id number] [place] 05:21:00 05:21:00 0527 [facility] 2021-09-13 2021-09-13 Outpatient [place], [facility] [id number] 00:00:00 00:00:00 Claudia [id number] 2021-09-06 2021-09-06 Outpatient [facility] 2021 [place] 12:21:00 12:21:00 0520 [facility] 2021-09-06 2021-09-06 Outpatient [place], [facility] [id number] 00:00:00 00:00:00 Claudia [id number] 2021-08-30 2021-08-30 Outpatient [facility] 2021 [place] 05:25:00 05:25:00 0513 [facility] 2021-08-30 2021-08-30 Outpatient [place], [facility] [id number] 00:00:00 00:00:00 Claudia [id number] 2021-07-19 2021-07-19 Outpatient [facility] 2021 [place] 05:24:00 05:24:00 0401 [facility] 2021-07-19 2021-07-19 Outpatient [place], [facility] [id number] 00:00:00 00:00:00 Claudia [id number] 2021-07-17 2021-07-17 Outpatient [facility] 2021 [place] 11:37:00 11:37:00 0330 [facility] 2021-07-17 2021-07-17 Outpatient [place], [facility] [id number] 00:00:00 00:00:00 Claudia [id number] 2021-07-12 2021-07-12 Outpatient [facility] 2021 [place] 02:59:00 02:59:00 0325 [facility] 2021-03-22 2021-03-22 Imm/Inj Vaccine, Ang Db Cbc Fam RUST 1. [id number] [facility] 16:02:47 16:12:47 Visit Flori Coley [facility] [id number] [facility]ling [facility] [id number] Ariel as PEDRO?BLEA [phone] [address] MEDICAL OFFICE BUILDING 2021-03-22 2021-03-22 Outpatient Diana COLEY [facility] [id number] Univers 16:10:00 16:10:00 [facility] 2020-10-24 2020-10-24 Outpatient LUPE Quach, [facility] JOANA [id number] [facility] 12:00:00 12:00:00 Paula [id number] [facility] 2020-07-25 2020-07-25 Outpatient Diana MÉNDEZ [facility] [id number] Univers 12:20:00 12:11:55 DASH [facility] 2020-06-27 2020-06-27 Outpatient Diana MÉNDEZ [facility] [id number] Univers 12:20:00 12:01:05 [facility] Results Test Description Test Time Test Comments Results Result Sour e Comments SCR MAMM 2020-10-15 BILATERAL NAMRATA 11:12:47 CAD DIGITAL Name: Shira : 1975 Sex: F - SCR MAMM BILATERAL NAMRATA CAD DIGITALBILATERAL DIGITAL SCREENING MAMMOGRAM 3D/2D WITH CAD: 1CLINICAL: Asymptomatic. Digital breast tomosynthesis was performed in addition to routine CC and MLO views. Current mammographic images were evaluated by [employer]astic[employer] CAD (computer-aided detection) software. No prior exams [...] EVALUATION NEEDEDBilateral ultrasound recommended. Jessica trotter/penvicky:10/15/2020 11:12:47 Crossword Puzzle Maker: Lisa Pruett MM, [facility] Mammographyletter sent: Additional Imaging Mammogram BI-RADS: 0 Incomplete: Additional Imaging Evaluation Needed
[2021-12-19] MEDS ORDERED: TAMSULOSIN 0.4 MG SR CAP ONE (00:07)
[2021-12-19] MEDS ORDERED: MORPHINE 4 MG/ML SYR ONE ×2 (00:07→02:19)
[2021-12-19] MEDS ORDERED: KETOROLAC 30 MG/ML INJ ONE (00:07)
[2021-12-19] MEDS ORDERED: ONDANSETRON 4 MG/2 ML VIAL ONE (00:07)
[2021-12-19] MEDS ORDERED: MAGNESIUM SULFATE 1 gm IVPB 1 GM/100 ML BAG IV ONE (00:07)
[2021-12-19 00:24] LABS: Urine Blood 1+ (Negative); Urine Glucose 2+ (Negative); Urine Protein Negative (Negative); Urine pH 6.5 (5.0-7.0)
[2021-12-19 00:41] LABS: Absolute Lymphocytes (CBC) 2.8 K/uL (0.7-4.9); Hematocrit 41.4 % (36.0-45.0); Lymphocytes % 26.4 % (15.3-44.8); MCV 90.4 fL (80-100); MPV 8.2 fL (7.6-11.3); RBC Red Blood Cell Count 4.58 M/uL (3.86-4.86)
[2021-12-19 00:46] LABS: Potassium 3.6 mmol/L (3.5-5.1)
[2021-12-19 00:56] LABS: Urine Mucus Slight /HPF (None Seen)
--- NOTE | 2021-12-19 02:12 | EDPHYS ---
Physician Documentation [facility] Name: Jennifer Goodwin Age: 46 yrs Sex: Female : 1975 Arrival Date: 12/18/2021 Time: 23:38 Bed 15 Private MD: ED Physician Erwin Mayen HPI: 12/18 23:54 This 46 yrs old Female presents to ER via Ambulatory with complaints of rn Possible Kidney Stone. 23:54 The patient complains of pain in the right mid back. The pain radiates to the abdomen. rn Onset: The symptoms/episode began/occurred 1.5 hour(s) ago. Modifying factors: The symptoms are alleviated by nothing. the symptoms are aggravated by nothing. Associated signs and symptoms: Pertinent positives: nausea, Pertinent negatives: diarrhea, fever, pain radiating to the lower extremities, vomiting. Severity of pain: At its worst the pain was moderate in the emergency department the pain is unchanged. The patient has experienced similar episodes in the past. The patient has not recently seen a physician. Historical: - Allergies: 23:41 No Known Allergies; hb - Immunization history:: Client reports having NOT received the Covid vaccine. - Family history:: not pertinent. - Social history:: Smoking status: Patient denies any tobacco usage or history of. - Hospitalizations: : No recent hospitalization is reported. ROS: 23:54 Constitutional: Negative for fever, chills, and weight loss, Eyes: Negative for injury, rn pain, redness, and discharge, Neck: Negative for injury, pain, and swelling, Cardiovascular: Negative for chest pain, palpitations, and edema, Respiratory: Negative for shortness of breath, cough, wheezing, and pleuritic chest pain, Abdomen/GI: + right sided abd pain and nausea Back: Negative for injury, + right flank pain : Negative for injury, bleeding, discharge, and swelling, MS/Extremity: Negative for injury and deformity, Skin: Negative for injury, rash, and discoloration. Exam: 23:54 Constitutional: This is a well developed, well nourished patient who is awake, alert, rn appears uncomfortable Head/Face: Normocephalic, atraumatic. Cardiovascular: Regular rate and rhythm. No pulse deficits. Respiratory: No increased work of breathing, no retractions or nasal flaring. Abdomen/GI: soft, mild RLQ tenderness, no rebound Back: No costovertebral tenderness. Full range of motion. Skin: Warm, dry MS/ Extremity: Pulses equal, no cyanosis. Neuro: Awake and alert, GCS 15 Vital Signs: 23:40 BP 150 / 84; Pulse 87; Resp 16; Temp 97.8(TE); Pulse Ox 97% on R/A; Weight 63.5 kg; hb Height 4 ft. 11 in. (149.86 cm); Pain 8/10; 12/19 00:26 Pain 2/10; ke1 00:26 Pain 2/10; ke1 00:56 BP 118 / 79; Pulse 64; Resp 17; Pulse Ox 96% ; ke1 02:32 Pain 1/10; ke1 12/18 23:40 Body Mass Index 28.28 (63.50 kg, 149.86 cm) hb MDM: 12/18 23:44 Patient medically screened. rn 12/19 00:31 ED course: Pt already much improved, smiling and giving thumbs up.. rn 02:08 Differential diagnosis: nephrolithiasis, UTI. Data reviewed: vital signs, nurses notes, rn old medical records, lab test result(s), radiologic studies, CT scan, and as a result, I will discharge patient. Counseling: I had a detailed discussion with the patient and/or guardian regarding: the historical points, exam findings, and any diagnostic results supporting the discharge/admit diagnosis, lab results, radiology results, the need for outpatient follow up, to return to the emergency department if symptoms worsen or persist or if there are any questions or concerns that arise at home. Response to treatment: the patient's symptoms have resolved after treatment, the patient's condition has returned to base line, the patient is now symptom free, and as a result, I will discharge patient. Special discussion: I discussed with the patient/guardian in detail that at this point there is no indication for admission to the hospital. It is understood, however, that if the symptoms persist or worsen the patient needs to return immediately for re-evaluation. Based on the history and exam findings, there is no indication for further emergent testing or inpatient evaluation. I discussed with the patient/guardian the need to see the urologist for further evaluation of the symptoms. ED course: Pt reports pain completely resolved, wants to go home. CT shows either same stone that has migrated or new stone. Difficult to tell since patient reports days without pain until tonight. Pt chooses to go home and states will return if worsens or pain returns. Understands return precautions. Requests another shot of morphine to go home with "in case pain comes back". . 12/18 23:53 Order name: CBC with Diff; Complete Time: 01:24 rn 12/18 23:53 Order name: Basic Metabolic Panel; Complete Time: 01:24 rn 12/18 23:53 Order name: Urine Microscopic Only; Complete Time: 01:24 rn 12/19 00:25 Order name: Urine Dipstick-Ancillary; Complete Time: 00:40 EDCO 12/19 00:28 Order name: Urine --Ancillary (enter results); Complete Time: 01:24 mw2 12/19 01:04 Order name: Urine Culture [facility] 12/18 23:53 Order name: CT Stone Protocol rn 12/18 23:53 Order name: IV Start; Complete Time: 00:15 rn 12/18 23:53 Order name: Urine Dipstick-Ancillary (obtain specimen); Complete Time: 00:26 rn 12/18 23:53 Order name: Urine Test (obtain specimen); Complete Time: 00:25 rn Administered Medications: 00:14 Drug: morphine 4 mg Route: IVP; Infused Over: 4 mins; Site: right antecubital; ke1 00:26 Follow up: Pain 2/10 Adult; Response: Marked relief of symptoms; Pain is decreased ke1 00:14 Drug: Magnesium Sulfate 1 grams Route: IVPB; Infused Over: 1 hrs; Site: right ke1 antecubital; 01:14 Follow up: Response: No adverse reaction; IV Status: Completed infusion ke1 00:14 Drug: Flomax (tamsulosin) 0.4 mg Route: PO; ke1 01:00 Follow up: Response: No adverse reaction ke1 00:14 Drug: Ketorolac 15 mg Route: IVP; Site: right antecubital; ke1 00:26 Follow up: Pain 2/10 Adult; Response: Marked relief of symptoms; Pain is decreased ke1 00:14 Drug: Zofran (Ondansetron) 4 mg Route: IVP; Site: right antecubital; ke1 00:44 Follow up: Response: Marked relief of symptoms; Nausea is decreased ke1 02:17 Drug: morphine 4 mg Route: IVP; Infused Over: 4 mins; Site: right antecubital; ke1 02:32 Follow up: Pain 04/29 Adult; Response: Marked relief of symptoms; Pain is decreased ke1 Disposition Summary: 12/19/21 02:11 Discharge Ordered Location: Home rn Problem: new rn Symptoms: have improved rn Condition: Stable rn Diagnosis - Calculus of ureter rn Followup: rn - With: Adam Lindo MD - When: As needed - Reason: Recheck today's complaints, Re-evaluation by your physician Discharge Instructions: - Discharge Summary Sheet rn - Kidney Stones rn - Renal Colic rn Forms: - Medication Reconciliation Form rn - Thank You Letter rn - Antibiotic external relations manager - Prescription Opioid Use rn Signatures: Dispatcher [employer] Erwin Constantino MD MD rn Baxter, Heather, RN Eliazar Edouard RN RN ke1
--- NOTE | 2021-12-19 02:12 | ER ---
Nurse's Notes [facility] Name: Jennifer Goodwin Age: 46 yrs Sex: Female : 1975 Arrival Date: 12/18/2021 Time: 23:38 Bed 15 Private MD: Diagnosis: Calculus of ureter Presentation: 12/18 23:40 Chief complaint: Right flank pain and nausea x 2 hours. Hx of kidney stones. hb Coronavirus screen: At this time, the client does not indicate any symptoms associated with coronavirus-19. Ebola Screen: No symptoms or risks identified at this time. Risk Assessment: Do you want to hurt yourself or someone else? Patient reports no desire to harm self or others. Onset of symptoms was December 18, 2021. 23:40 Method Of Arrival: Ambulatory hb 23:40 Acuity: PATTIE 3 hb 23:52 Initial Sepsis Screen: Does the patient meet any 2 criteria? No. Patient's initial ke1 sepsis screen is negative. Does the patient have a suspected source of infection? No. Patient's initial sepsis screen is negative. Triage Assessment: 23:50 General: Appears uncomfortable, Behavior is appropriate for age. Pain: Complains of ke1 pain in R flank Pain currently is 9 out of 10 on a pain scale. at worst was 10 out of 10 on a pain scale. level that patient reports is acceptable is 5 out of 10 on a pain scale. GI: Abdomen is flat, non-distended. Historical: - Allergies: 23:41 No Known Allergies; hb - Immunization history:: Client reports having NOT received the Covid vaccine. - Family history:: not pertinent. - Social history:: Smoking status: Patient denies any tobacco usage or history of. - Hospitalizations: : No recent hospitalization is reported. Screenin:50 Abuse screen: Denies threats or abuse. Nutritional screening: No deficits noted. ke1 Tuberculosis screening: No symptoms or risk factors identified. Fall Risk None identified. Assessment: 23:51 GI: Bowel sounds present X 4 quads. Abd is soft Abd is non tender. ke1 12/19 02:17 Pain: Complains of pain in R flank Pain currently is 7 out of 10 on a pain scale. at ke1 worst was 10 out of 10 on a pain scale. Vital Signs: 12/18 23:40 BP 150 / 84; Pulse 87; Resp 16; Temp 97.8(TE); Pulse Ox 97% on R/A; Weight 63.5 kg; hb Height 4 ft. 11 in. (149.86 cm); Pain 8/10; 12/19 00:26 Pain 2/10; ke1 00:26 Pain 2/10; ke1 00:56 BP 118 / 79; Pulse 64; Resp 17; Pulse Ox 96% ; ke1 02:32 Pain 1/10; ke1 12/18 23:40 Body Mass Index 28.28 (63.50 kg, 149.86 cm) hb ED Course: 12/18 23:38 Patient arrived in ED. ja2 23:41 Triage completed. hb 23:41 Arm band placed on. hb 23:44 Erwin Mayen MD is Attending Physician. rn 23:45 Eliazar Lynn RN is Primary Nurse. ke1 23:52 Bed in low position. Call light in reach. ke1 12/19 00:13 Inserted saline lock: 20 gauge in right antecubital area, using aseptic technique. ke1 00:33 CT Stone Protocol In Process Unspecified. EDMS 02:10 Adam Lindo MD is Referral Physician. rn 02:31 No provider procedures requiring assistance completed. IV discontinued. ke1 Administered Medications: 00:14 Drug: morphine 4 mg Route: IVP; Infused Over: 4 mins; Site: right antecubital; ke1 00:26 Follow up: Pain 2/10 Adult; Response: Marked relief of symptoms; Pain is decreased ke1 00:14 Drug: Magnesium Sulfate 1 grams Route: IVPB; Infused Over: 1 hrs; Site: right ke1 antecubital; 01:14 Follow up: Response: No adverse reaction; IV Status: Completed infusion ke1 00:14 Drug: Flomax (tamsulosin) 0.4 mg Route: PO; ke1 01:00 Follow up: Response: No adverse reaction ke1 00:14 Drug: Ketorolac 15 mg Route: IVP; Site: right antecubital; ke1 00:26 Follow up: Pain 2/10 Adult; Response: Marked relief of symptoms; Pain is decreased ke1 00:14 Drug: Zofran (Ondansetron) 4 mg Route: IVP; Site: right antecubital; ke1 00:44 Follow up: Response: Marked relief of symptoms; Nausea is decreased ke1 02:17 Drug: morphine 4 mg Route: IVP; Infused Over: 4 mins; Site: right antecubital; ke1 02:32 Follow up: Pain 04/29 Adult; Response: Marked relief of symptoms; Pain is decreased ke1 Medication: 02:33 VIS not applicable for this client. ke1 Outcome: 02:11 Discharge ordered by . rn 02:31 Discharged to home ambulatory. ke1 02:31 Condition: good 02:31 Discharge instructions given to patient. 02:33 Patient left the ED. ke1 Signatures: Dispatcher [employer] EDMS Erwin Mayen MD MD rn Baxter, Heather, RN RN hb Alexander, Jessica ja2 Ebrottie, Kouassi, RN RN ke1
[2021-12-19 05:33] VITALS: TEMP 97.8
[2021-12-19 05:42] VITALS: BP 118/79; O2SAT 96
--- NOTE | 2021-12-19 13:19 | RAD REPORT ---
EXAM DESCRIPTION: CT - Stone Protocol - 12/19/2021 5:37 am CLINICAL HISTORY: 46 years, Female, right flank pain, possible kidney stone COMPARISON: 11/24/2021 TECHNIQUE: Multiple transaxial tomograms of the abdomen and pelvis were performed from the lung base s to the symphysis pubis 3 mm slice thickness at 3 mm interval reconstruction, without administration of IV and oral contrast. Multiplanar reformats in the sagittal and coronal plane were generated and reviewed. This exam was performed according to our departmental dose-optimization protocol, which includes auto mated exposure control, adjustment of the mA and/or kV according to patient size and/or use of iterat yaw reconstruction technique. FINDINGS: The lack of IV and oral contrast limits evaluation of solid organs, subtle lesions cannot be excluded. The lung bases demonstrate very minimal dependent atelectatic changes. Mild elevation right hemidiaph ragm. Again there is right hydronephrosis and right hydroureter slight increase in comparison with prior st udy now extending up to the close proximity of the right UVJ measuring 4.8 x 4.3 mm on axial image 27 and coronal image 53. Tiny speckle calcifications are suggested within the midpole right kidney on i mage 57. There is a lower pole calculus measuring 2 mm on image 67. The left kidney demonstrate several punctate areas of high density fluid the largest speckle of linea r calcification upper pole measuring 4.8 mm on image 43 there. There is no evidence for left hydronep hrosis/or left hydroureter. Grossly the unopacified liver, gallbladder, pancreas, spleen and adrenal glands demonstrate to be wit hin normal limits, no significant focal lesions were identified. Grossly the unopacified stomach, small bowel and large bowel demonstrate to be within normal limits. There is no evidence for bowel dilatation/or free air. The appendix is normal. The urinary bladder demonstrate to be within normal limits. The uterus demonstrate to be within aspen l limits. No adnexal masses are identified. The aorta demonstrate to be within normal limits. There is no retroperitoneal lymphadenopathy. There is no evidence for ascites. The rest of the soft tiss ue demonstrate to be grossly unremarkable. IMPRESSION: Slight increase in right hydronephrosis and right hydroureter with interval migration of the previous described calculus in close proximity of the right UVJ measuring 4.8 x 4.3 mm. Bilateral nephrolithiasis. Electronically signed by: Tom Kohler MD 12/19/2021 12:47 AM CDT Due to temporary technical issues with the PACS/Fluency reporting system, reports are being signed by the in house radiologists without review as a courtesy to insure prompt reporting. The interpreting radiologist is fully responsible for the content of the report.
== END 2021-12-19 02:33 | disposition home or self-care (01) ==
LOC: ER 23:36
DX: N20.1 Calculus of ureter (principal)
CPT/HCPCS: 36415; 74176; 76377; 80048; 81003; 81015; 81025; 85025; 87077; 87086; 87088; 87186; 96365; 96375; 99283

== ENCOUNTER 2021-12-27 01:47 | Emergency (ER) | payer OTHER ==
--- OUTSIDE RECORDS SUMMARY | 2021-12-27 01:49 | XMS REPORT | Continuity of Care Document ---
:1975 Author Organization [facility] t Address [address] [place] [address] Care Team Providers Name Role Phone DONTE ELEONORA Primary Care Physician Unavailable SAVANNAH_Rommel Attending Clinician Unavailable Claudia Nuñez Attending Clinician [phone] Referred, Self Attending Clinician Unavailable Vaccine, Ang Db Cbc Fam Attending Clinician Unavailable Flori Coley MD Attending Clinician FLORI COLEY Attending Clinician Unavailable Paula Quach Attending Clinician Unavailable DASH MÉNDEZ Attending Clinician Unavailable SAVANNAH_Rommel Admitting Clinician Unavailable Referred, Self Admitting Clinician Unavailable Paula Quach Admitting Clinician Unavailable Payers Payer Name Policy Type Policy Number Effective Date Expiration Date Eusebio coello [employer] [id number] 2011 00:00:00 Problems This patient has no known problems. Allergies, Adverse Reactions, Alerts Allergy Allergy Status Severity Reaction(s) Onset Inactive Treating Comm ents Source Name Type Date Date Clinician NO KNOWN Drug Active [facility] ALLERGIE Class [facility] Social History Social Habit Start Date Stop Date Quantity Comments Source Sex Assigned At [birth year] [facility] 00:00:00 00:00:00 Medical Branch Smoking Status Start Date Stop Date Source Unknown if ever smoked [facility] Medications This patient has no known medications. Immunizations Ordered Filled Immunization Date Status Comments [facility] e Immunization Name Name SARS-COV-2 COVID-19 2021-03-22 Completed Unive rsity of [facility] BOOSTER 00:00:00 [place] [facility] VACC[facility] SARS-COV-2 COVID-19 2020-07-25 Completed Unive rsity of [facility]ER[facility] VACCINE 00:00:00 [place] [facility] SARS-COV-2 COVID-19 2020-06-27 Completed Unive rsity of MODERNA VACCINE 00:00:00 [place] [facility] Procedures Procedure Date / Time Performed Performing Clinician [facility] german SARS-COV-2 COVID-19 2021-03-22 22:18:10 Doctor Unassigned, No [facility] [place] VACCINE Name Medical Branch BOOSTER,0.25ML,IM (MODERNA) Encounters Start End Encounter Admission Attending Care Care Encounter Source Date/Time Date/Time Type Type Clinicians Facility Department ID 2021-10-11 2021-10-11 Outpatient [facility] [id number] [place] 09:29:00 09:29:00 0624 [facility] 2021-10-11 2021-10-11 Outpatient [place], [facility] [id number] 00:00:00 00:00:00 Claudia [id number] 2021-10-04 2021-10-04 Outpatient Referred, [facility] [id number] [facility] 12:00:00 12:00:00 Self [address] [facility] 2021-09-27 2021-09-27 Outpatient [facility] [id number] [place] 12:03:00 12:03:00 0610 [facility] 2021-09-27 2021-09-27 Outpatient [place], [facility] [id number] 00:00:00 00:00:00 Claudia [id number] 2021-09-13 2021-09-13 Outpatient [facility] [id number] [place] 05:21:00 05:21:00 0527 [facility] 2021-09-13 2021-09-13 Outpatient [place], [facility] [id number] 00:00:00 00:00:00 Claudia [id number] 2021-09-06 2021-09-06 Outpatient [facility] 2021 [place] 12:21:00 12:21:00 0520 [facility] 2021-09-06 2021-09-06 Outpatient [place], [facility] [id number] 00:00:00 00:00:00 Claudia [id number] 2021-08-30 2021-08-30 Outpatient [facility] 2021 [place] 05:25:00 05:25:00 0513 [facility] 2021-08-30 2021-08-30 Outpatient [place], [facility] [id number] 00:00:00 00:00:00 Claudia [id number] 2021-07-19 2021-07-19 Outpatient [facility] 2021 [place] 05:24:00 05:24:00 0401 [facility] 2021-07-19 2021-07-19 Outpatient [place], [facility] [id number] 00:00:00 00:00:00 Claudia [id number] 2021-07-17 2021-07-17 Outpatient [facility] 2021 [place] 11:37:00 11:37:00 0330 [facility] 2021-07-17 2021-07-17 Outpatient [place], [facility] [id number] 00:00:00 00:00:00 Claudia [id number] 2021-07-12 2021-07-12 Outpatient [facility] 2021 [place] 02:59:00 02:59:00 0325 [facility] 2021-03-22 2021-03-22 Imm/Inj Vaccine, Ang Db Cbc Fam [facility] [id number]. [id number] Univers 16:02:47 16:12:47 Visit Flori Coley [facility] [id number] sterling [facility] [id number] Ariel as PEDRO?BLEA [phone] [address] MEDICAL OFFICE BUILDING 2021-03-22 2021-03-22 Outpatient Diana [facility] [id number] Univers 16:10:00 16:10:00 [facility] 2020-10-24 2020-10-24 Outpatient LUPE Quach, [facility] [id number] [facility] 12:00:00 12:00:00 Paula [facility] 2020-07-25 2020-07-25 Outpatient Diana MÉNDEZ [facility] [id number] Univers 12:20:00 12:11:55 DASH [facility] 2020-06-27 2020-06-27 [facility] [id number] Univers 12:20:00 12:01:05 [facility] Results Test Description Test Time Test Comments Results Result Sour e Comments SCR MAMM 2020-10-15 BILATERAL NAMRATA 11:12:47 CAD DIGITAL Name: Shira : 1975 Sex: F - SCR MAMM BILATERAL NAMRATA CAD DIGITALBILATERAL DIGITAL SCREENING MAMMOGRAM 3D/2D WITH CAD: 10/10/2020LINICAL: Asymptomatic. Digital breast tomosynthesis was performed in addition to routine CC and MLO views. Current mammographic images were evaluated by Primo Rounder CAD (computer-aided detection) software. No prior exams [...] EVALUATION NEEDEDBilateral ultrasound recommended. Jessica trotter/penvicky:10/15/2020 11:12:47 Deputy Insurance Commissioner: Lisa Pruett MM, [facility] Mammographyletter sent: Additional Imaging Mammogram BI-RADS: 0 Incomplete: Additional Imaging Evaluation Needed
[2021-12-27] MEDS ORDERED: ONDANSETRON 4 MG/2 ML VIAL ONE (02:43)
[2021-12-27] MEDS ORDERED: MORPHINE 4 MG/ML SYR ONE (02:43)
[2021-12-27] MEDS ORDERED: TAMSULOSIN 0.4 MG SR CAP ONE (02:43)
[2021-12-27] MEDS ORDERED: KETOROLAC 30 MG/ML INJ ONE (02:43)
[2021-12-27] MEDS ORDERED: MAGNESIUM SULFATE 1 gm IVPB 1 GM/100 ML BAG IV ONE (02:43)
[2021-12-27 03:03] LABS: Absolute Lymphocytes (CBC) 0.8 K/uL (0.7-4.9); Hematocrit 35.8 % (36.0-45.0); Lymphocytes % 6.6 % (15.3-44.8); MCV 89.4 fL (80-100); MPV 7.8 fL (7.6-11.3)
[2021-12-27 03:19] LABS: Potassium 3.4 mmol/L (3.5-5.1)
[2021-12-27] MEDS ORDERED: PROMETHAZINE INJ 25 MG/ML AMP ONE (04:53)
--- NOTE | 2021-12-27 05:25 | EDPHYS ---
Physician Documentation [facility] Name: Jennifer Goodwin Age: 46 yrs Sex: Female : 1975 Arrival Date: 12/27/2021 Time: 01:50 Bed 13 Private MD: ED Physician Erwin Mayen HPI: 12/27 02:49 This 46 yrs old Female presents to ER via Ambulatory with complaints of rn Possible Kidney Stone. 02:49 The patient complains of pain in the right mid back. The pain radiates to the abdomen. rn Onset: The symptoms/episode began/occurred at an unknown time. Modifying factors: The symptoms are alleviated by nothing. the symptoms are aggravated by nothing. Associated signs and symptoms: Pertinent positives: fever, nausea. Severity of pain: At its worst the pain was moderate in the emergency department the pain is unchanged. The patient has experienced similar episodes in the past. The patient has been recently seen at the [facility] Emergency Department. Pt reports just saw Dr. Tavera at [facility] yesterday, told had new kidney stone and UTI, given abx, told to go to [facility] ER tomorrow or next day if still hurting for possible procedure. Pain got worse so came in here for pain control. . 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 - Social history:: Smoking status: Patient denies any tobacco usage or history of. - Family history:: not pertinent. - Hospitalizations: : No recent hospitalization is reported. ROS: 02:49 Constitutional: + subjective fever Eyes: Negative for injury, pain, redness, and fern gatherer, Neck: Negative for injury, pain, and swelling, Cardiovascular: Negative for chest pain, palpitations, and edema, Respiratory: Negative for shortness of breath, cough, wheezing, and pleuritic chest pain, Abdomen/GI: + abd pain and nausea Back: + right flank pain : Negative for injury, bleeding, discharge, and swelling, MS/Extremity: Negative for injury and deformity, Skin: Negative for injury, rash, and discoloration, Neuro: Negative for headache, weakness, numbness, tingling, and seizure. Exam: 02:49 Constitutional: This is a well developed, well nourished patient who is awake, alert, rn and in no acute distress. Head/Face: Normocephalic, atraumatic. Cardiovascular: Tachycardic, regular Respiratory: No increased work of breathing, no retractions or nasal flaring. Abdomen/GI: soft, non-tender Skin: Warm, dry MS/ Extremity: Pulses equal, no cyanosis Neuro: Awake and alert, GCS 15 Vital Signs: 02:21 BP 135 / 89; Pulse 110; Resp 18 S; Temp 100.1(O); Pulse Ox 98% on R/A; Weight 64.41 kg bb (R); Height 4 ft. 11 in. (149.86 cm) (R); Pain 8/10; 04:24 BP 105 / 75; Pulse 76; Resp 14; Pulse Ox 97% on R/A; ja4 02:21 Body Mass Index 28.68 (64.41 kg, 149.86 cm) bb MDM: 02:13 Patient medically screened. rn 04:42 Differential diagnosis: nephrolithiasis. 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 Response to treatment: the patient's symptoms have markedly improved after treatment. ED course: Pt with persistent 5mm distal ureteral stone that has not passed. Much more comfortable, states pain has gone, + mild nausea. Offered transfer for urological consultation, patient declines. She states she wants to stick to original plan with her urologist Dr. Tavera and go to [facility] herself in AM.. 05:24 Counseling: I had a detailed discussion with the patient and/or guardian regarding: the rn historical points, exam findings, and any diagnostic results supporting the discharge/admit diagnosis, lab results, radiology results, the need to transfer to another facility. Refusal of service: The patient/guardian displays adequate decision making capability and despite a detailed discussion of alternatives, benefits, risks, and consequences refuses: transfer. 12/27 01:56 Order name: CBC with Diff; Complete Time: 04:37 rn 12/27 01:56 Order name: CT Stone Protocol rn 12/27 01:56 Order name: Basic Metabolic Panel; Complete Time: 04:37 rn 12/27 01:56 Order name: Urine Dipstick-Ancillary (obtain specimen) rn 12/27 01:56 Order name: IV Start; Complete Time: 02:52 rn Administered Medications: 02:51 Drug: Flomax (tamsulosin) 0.4 mg Route: PO; ja4 02:52 Drug: Magnesium Sulfate 1 grams Route: IVPB; Infused Over: 1 hrs; Site: right ja4 antecubital; 02:52 Drug: Ketorolac 15 mg Route: IVP; Site: right antecubital; ja4 02:56 Drug: morphine 4 mg Route: IVP; Infused Over: 4 mins; Site: right antecubital; ja4 02:56 Drug: Zofran (Ondansetron) 4 mg Route: IVP; Site: right antecubital; ja4 04:48 Drug: Phenergan (promethazine) 12.5 mg Route: IVP; Site: right antecubital; ja4 Disposition Summary: 12/27/21 05:24 Discharge Ordered Location: Home rn Problem: an ongoing problem rn Symptoms: have improved rn Condition: Stable rn Diagnosis - Calculus of ureter rn Followup: rn - With: Private Physician - When: As needed - Reason: Recheck today's complaints, Re-evaluation by your physician Discharge Instructions: - Discharge Summary Sheet rn - Kidney Stones rn - Renal Colic rn - Lithotripsy rn - Dietary Guidelines to Help Prevent Kidney Stones rn Forms: - Medication Reconciliation Form rn - Thank You Letter rn - Antibiotic rn er - Prescription Opioid Use rn Signatures: Dispatcher [employer] Dyan Travis RN RN bb Nieto, Roman, MD MD rn Allen, Jeremy, RN RN ja4
--- NOTE | 2021-12-27 05:25 | ER ---
Nurse's Notes [facility] Name: Jennifer Goodwin Age: 46 yrs Sex: Female : 1975 Arrival Date: 12/27/2021 Time: 01:50 Bed 13 Private MD: Diagnosis: Calculus of ureter Presentation: 12/27 02:21 Chief complaint: Patient states: she has kidney stones was seen by urologist today and bb scheduled for surgery on Thursday but the pain is too much and she was told to come here to receive pain relief and fluids. Coronavirus screen: At this time, the client does not indicate any symptoms associated with coronavirus-19. Ebola Screen: No symptoms or risks identified at this time. Initial Sepsis Screen: Does the patient meet any 2 criteria? No. Patient's initial sepsis screen is negative. Does the patient have a suspected source of infection? Yes: Other: kidney stone. Risk Assessment: Do you want to hurt yourself or someone else? Patient reports no desire to harm self or others. Onset of symptoms is unknown. 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 - Social history:: Smoking status: Patient denies any tobacco usage or history of. - Family history:: not pertinent. - Hospitalizations: : No recent hospitalization is reported. Screenin:27 Abuse screen: Denies threats or abuse. Nutritional screening: No deficits noted. ja4 Tuberculosis screening: No symptoms or risk factors identified. Fall Risk Gait- Normal/Bed Rest/Wheelchair (0 pts). Assessment: 02:26 General: Appears uncomfortable, Behavior is calm, cooperative, appropriate for age. ja4 Pain: Complains of pain in back Pain currently is 8 out of 10 on a pain scale. Pain began 4 days ago. : Reports pain in right. Vital Signs: 02:21 BP 135 / 89; Pulse 110; Resp 18 S; Temp 100.1(O); Pulse Ox 98% on R/A; Weight 64.41 kg bb (R); Height 4 ft. 11 in. (149.86 cm) (R); Pain 8/10; 04:24 BP 105 / 75; Pulse 76; Resp 14; Pulse Ox 97% on R/A; ja4 02:21 Body Mass Index 28.68 (64.41 kg, 149.86 cm) bb ED Course: 01:50 Patient arrived in ED. bp1 01:55 Erwin Mayen MD is Attending Physician. rn 02:23 Triage completed. bb 02:23 Arm band placed on Patient placed in an exam room, on a stretcher, on pulse oximetry. bb Family accompanied patient. 02:27 Bed in low position. Call light in reach. Side rails up X2. Adult w/ patient. ja4 02:27 No provider procedures requiring assistance completed. ja4 02:51 Shawn Kahn, YEN is Primary Nurse. ja4 02:53 CT Stone Protocol In Process Unspecified. EDMS 02:55 CBC with Diff Sent. ja4 02:55 Basic Metabolic Panel Sent. ja4 05:35 Inserted IV discontinued, intact, bleeding controlled, No redness/swelling at site. ja4 Pressure dressing applied. Administered Medications: 02:51 Drug: Flomax (tamsulosin) 0.4 mg Route: PO; ja4 02:52 Drug: Magnesium Sulfate 1 grams Route: IVPB; Infused Over: 1 hrs; Site: right ja4 antecubital; 02:52 Drug: Ketorolac 15 mg Route: IVP; Site: right antecubital; ja4 02:56 Drug: morphine 4 mg Route: IVP; Infused Over: 4 mins; Site: right antecubital; ja4 02:56 Drug: Zofran (Ondansetron) 4 mg Route: IVP; Site: right antecubital; ja4 04:48 Drug: Phenergan (promethazine) 12.5 mg Route: IVP; Site: right antecubital; carlos enrique Outcome: 05:24 Discharge ordered by . yen 05:35 Discharged to home ambulatory. carlos enrique 05:35 Condition: stable 05:35 Discharge instructions given to patient, Instructed on discharge instructions, follow up and referral plans. medication usage, Demonstrated understanding of instructions, follow-up care, medications. 05:36 Patient left the ED. carlos enrique Signatures: Dispatcher [employer] Dyan Travis RN RN bb Nieto, Roman, MD MD rn Paniauga, Brittany bp1 Allen, Jeremy, RN RN ja4
[2021-12-27 06:28] VITALS: TEMP 100.1
[2021-12-27 06:38] VITALS: BP 105/75; O2SAT 97
--- NOTE | 2021-12-27 10:54 | RAD REPORT ---
EXAM DESCRIPTION: CT Abdomen and Pelvis Without Intravenous Contrast CLINICAL HISTORY: The patient is 46 years old and is Female; eval for kidney stone TECHNIQUE: Axial computed tomography images of the abdomen and pelvis without intravenous contrast. Sagittal and coronal reformatted images were created and reviewed. This CT exam was performed usi ng one or more of the following dose reduction techniques: automated exposure control, adjustment o f the mA and/or kV according to patient size, and/or use of iterative reconstruction technique. COMPARISON: December 18, 2021. FINDINGS: Lung bases: Unremarkable. No mass. No consolidation. ABDOMEN: Liver: Diffuse hepatic steatosis. Gallbladder and bile ducts: Unremarkable. No calcified stones. No ductal dilation. Pancreas: Unremarkable. No ductal dilation. Spleen: Unremarkable. No splenomegaly. Adrenals: Unremarkable. No mass. Kidneys and ureters: 5 mm stone in the lower right ureter near the right UVJ with mild right hydr oureteronephrosis and perinephric/periureteral stranding, similar to prior. Nonobstructing calcifications in the kidneys bilaterally. Stomach and bowel: Unremarkable. No obstruction. No mucosal thickening. PELVIS: Appendix: No findings to suggest acute appendicitis. Bladder: Unremarkable. Reproductive: Unremarkable as visualized. ABDOMEN and PELVIS: Intraperitoneal space: Unremarkable. No free air. No significant fluid collection. Bones/joints: No acute fracture. No dislocation. Soft tissues: Unremarkable. Vasculature: Unremarkable. No abdominal aortic aneurysm. Lymph nodes: Unremarkable. No enlarged lymph nodes. IMPRESSION: 5 mm stone in the lower right ureter near the right UVJ with mild right hydroureteroneph rosis and perinephric/periureteral stranding, similar to prior. Electronically signed by: Rupert Godwin MD 12/27/2021 3:31 AM CDT Due to temporary technical issues with the PACS/Fluency reporting system, reports are being signed by the in house radiologists without review as a courtesy to insure prompt reporting. The interpreting radiologist is fully responsible for the content of the report.
== END 2021-12-27 05:36 | disposition home or self-care (01) ==
LOC: ER 01:47
DX: N20.1 Calculus of ureter (principal); Z87.442 Personal history of urinary calculi
CPT/HCPCS: 85025; 80048; 36415; 76377; 74176; 96375; 96374; 99284; J2550; J3475; J2405

== ENCOUNTER 2022-10-23 21:41 | Emergency (ER) | payer OTHER ==
--- OUTSIDE RECORDS SUMMARY | 2022-10-23 21:47 | XMS REPORT | Continuity of Care Document ---
:1975 Author Organization [facility] t Address [address] [place] [address] [place] [id number] Care Team Providers Name Role Phone DONTE ELEONORA Primary Care Physician Unavailable Steph Javed Attending Clinician Unavailable Hever Tavera MD Attending Clinician SISSON_C Attending Clinician Unavailable QUITA BAHENA Attending Clinician Unavailable Kevyn Nova Attending Clinician Unavailable Quita Bahena MD Attending Clinician Doctor Unassigned, [place] Attending Clinician Unavailable Srini Soto MD Attending Clinician Ashely Martinez MD Attending Clinician Jaleel Gordon DO Attending Clinician Vanda Guo MD Attending Clinician Claudia Nuñez Attending Clinician [phone] Referred, Self Attending Clinician Unavailable Kevyn Mariscal Cbc Fam Attending Clinician Unavailable Flori Coley MD Attending Clinician FLORI COLEY Attending Clinician Unavailable Paula Quach Attending Clinician Unavailable DASH MÉNDEZ Attending Clinician Unavailable Steph Javed Admitting Clinician Unavailable SISSON_Rommel Admitting Clinician Unavailable ASHELY MARTINEZ Admitting Clinician Unavailable Referred, Self Admitting Clinician Unavailable Paula Quach Admitting Clinician Unavailable Payers Payer Name Policy Type Policy Number Effective Date Expiration Date Eusebio GOOD [id number] 2011 00:00:00 Problems Condition Condition Condition Status Onset Resolution Last Treating Co mments Source Name Details Category Date Date Treatment Clinician Date History of History of Disease Active M ethodi urinary urinary 5-15 st tract tract 00:00: Hospita infection infection 00 l Calculus Calculus Disease Active [facility] di of kidney of kidney 12-29 00:00: Hospita 00 l 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 00 l Complicate Complicate Disease Active M ethodi d UTI d UTI 12-29 (urinary (urinary 00:00: Hospit a tract tract 00 l infection) infection) Diabetes 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, type 2, 00:00: Hospita noninsulin noninsulin 00 l dependent dependent Allergies, Adverse Reactions, Alerts Allergy Allergy Status Severity Reaction(s) Onset Inactive Treating Comm ents Source Name Type Date Date Clinician NO KNOWN Drug Active [facility] Social History Social Habit Start Date Stop Date Quantity Comments Source Gender identity [facility] Sexual orientation [facility] Exposure to 2022-04-22 2022-05-02 Not sure [facility] SARS-CoV-2 (event) 00:00:00 16:27:00 [facility] History of Social 2021-12-31 2021-12-31 [facility] function 00:00:00 00:00:00 Sex Assigned At [address] [facility] 00:00:00 00:00:00 Smoking Status Start Date Stop Date Source Never Smoker [facility] Tobacco smoking consumption [facility] unknown Medications Ordered Filled Start Stop Current Ordering Indication Dosage Frequency Signature Comments Components Source Medication Medication Date Date Medication? Clinician (SIG) Name Name testosteron testosteron No testostero [place] e 100 mg e 100 mg 4-21 ne 100 mg Co mmuni implant implant 14:53: implant ty pelletTake pelletTake 38 pelletTake Hospita 112.5 mg by 112.5 mg by 112.5 mg l implantatio implantatio by C linics n route. n route. implantati on route. estradiol estradiol No estradiol [place] 12.5 mg 12.5 mg 4-21 12.5 mg Commun i implant implant 14:53: implant ty pelletTake pelletTake 32 pelletTake Hospita 1 pellet by 1 pellet by 1 pellet l implantatio implantatio by C linics n route. n route. implantati on route. empaglifloz Yes 1{tbl} QD Take 1 Me thodi in-metformi -[address] n (Synjardy 15:05: mouth Hospi ta XR) 01 daily. l 25-1,000 mg tablet, IR & ER, biphasic 24hr famotidine 0 Yes 20mg Q.5D Take 1 Metho di (PEPCID) 20 -14 tablet (20 st MG tablet 15:05: mg total) Hos travis 01 by mouth 2 l (two) times a day. levocetiriz 0 Yes 5mg QD Take 1 Meth reba ine (XYZAL) 01-01 tablet (5 st 5 MG tablet 15:05: mg total) H ospita 01 by mouth l every evening. progesteron 0 Yes 200mg Q.5W Take 1 Met hodi e -[address] (PROMETRIUM 15:05: (200 mg Hos travis ) 200 MG 01 total) by l capsule mouth 2 (two) times a week. semaglutide 0 Yes 7mg QD Take 7 mg M ethodi 7 mg tablet [address] 15:05: daily. Hospita 01 l rosuvastati 0 Yes 20mg QD Take 1 Meth reba n (CRESTOR) 9-14 tablet (20 st 20 mg 15:05: mg total) Hospita tablet 01 by mouth l daily. acetaminoph 2021-0 Yes 325mg Q6H Take 1 Met hodi en 9-[address] (TYLENOL) 15:05: (325 mg Hospi ta 325 MG 01 total) by l tablet mouth every 6 (six) hours as needed for mild pain. UNABLE TO 2021-0 Yes 1{dose} QD Take 1 Met hodi FIND 9-[address] 15:05: mouth Hospita 01 daily. Med l Name: Thin 30 Probiotic calcium-mag 2021-0 Yes 1{tbl} QD Take 1 Me thodi nesium-zinc 9-[address] tablet 15:05: mouth Hospita 01 daily. l empaglifloz 2-0 Yes 1{tbl} QD Take 1 Me thodi in-metformi 9-[address] n (Synjardy 15:05: mouth Hospi ta XR) 01 daily. l 25-1,000 mg tablet, IR & ER, biphasic 24hr famotidine 2021-0 Yes 20mg Q.5D Take 1 Metho di (PEPCID) 20 9-14 tablet (20 st MG tablet 15:05: mg total) Hos travis 01 by mouth 2 l (two) times a day. levocetiriz 2-0 Yes 5mg QD Take 1 Meth reba ine (XYZAL) -14 tablet (5 st 5 MG tablet 15:05: mg total) H ospita 01 by mouth l every evening. progesteron 2021-0 Yes 200mg Q.5W Take 1 Met hodi e 9-[address] (PROMETRIUM 15:05: (200 mg Hos travis ) 200 MG 01 total) by l capsule mouth 2 (two) times a week. semaglutide 2021-0 Yes 7mg QD Take 7 mg M ethodi 7 mg tablet -[address] 15:05: daily. Hospita 01 l rosuvastati 2021-0 Yes 20mg QD Take 1 Meth reba n (CRESTOR) -14 tablet (20 st 20 mg 15:05: mg total) Hospita tablet 01 by mouth l daily. acetaminoph 2-0 Yes 325mg Q6H Take 1 Met hodi en 9-[address] (TYLENOL) 15:05: (325 mg Hospi ta 325 MG 01 total) by l tablet mouth every 6 (six) hours as needed for mild pain. UNABLE TO 2-0 Yes 1{dose} QD Take 1 Met hodi FIND 9-[address] 15:05: mouth Hospita 01 daily. Med l Name: Thin 30 Probiotic calcium-mag 2021-0 Yes 1{tbl} QD Take 1 Me thodi nesium-zinc 9-[address] tablet 15:05: mouth Hospita 01 daily. l empaglifloz 2021-0 Yes 1{tbl} QD Take 1 Me thodi in-metformi -[address] n (Synjardy 15:05: mouth Hospi ta XR) 01 daily. l 25-1,000 mg tablet, IR & ER, biphasic 24hr famotidine 2021-0 Yes 20mg Q.5D Take 1 Metho di (PEPCID) 20 - tablet (20 st MG tablet 15:05: mg total) Hos travis 01 by mouth 2 l (two) times a day. levocetiriz 2021-0 Yes 5mg QD Take 1 Meth reba ine (XYZAL) - tablet (5 st 5 MG tablet 15:05: mg total) H ospita 01 by mouth l every evening. progesteron 0 Yes 200mg Q.5W Take 1 Met hodi e 01-[address] (PROMETRIUM 15:05: (200 mg Hos travis ) 200 MG 01 total) by l capsule mouth 2 (two) times a week. semaglutide 0 Yes 7mg QD Take 7 mg M ethodi 7 mg tablet 01-[address] 15:05: daily. Hospita 01 l rosuvastati 0 Yes 20mg QD Take 1 Meth reba n (CRESTOR) 01-01 tablet (20 st 20 mg 15:05: mg total) Hospita tablet 01 by mouth l daily. acetaminoph 0 Yes 325mg Q6H Take 1 Met hodi en - tablet st (TYLENOL) 15:05: (325 mg Hospi ta 325 MG 01 total) by l tablet mouth every 6 (six) hours as needed for mild pain. UNABLE TO 2021-0 Yes 1{dose} QD Take 1 Met hodi FIND 01-[address] 15:05: mouth Hospita 01 daily. Med l Name: Thin 30 Probiotic calcium-mag 0 Yes 1{tbl} QD Take 1 Me thodi nesium-zinc -[address] tablet 15:05: mouth Hospita 01 daily. l ciprofloxac 2021-0 202- No 500mg Q.5D Take 1 Me thodi in (CIPRO) 01-01-[address] 500 MG 15:05: 00:00 (500 mg Hospita tablet 01 :00 total) by l mouth 2 (two) times a day. Last dose: 12/28/2021 , duration of therapy: 7 days, start date: 12/26/2021 HYDROcodone 2021-0 2021- [place] [address] .5{tbl} Q12H Take 0.5 Methodi -acetaminop 9-14 - tablets by s t hen (NORCO) 15:05: 00:00 mouth Hosp adam 10-325 mg 01 :00 every 12 l per tablet (twelve) hours as needed for moderate pain .acute pain. Per prescripti on drug monitoring program, last filled: 12/06/2021 , quantity: 15 tablets, day supply: 7. ciprofloxac 2021-0 2021- No 500mg Q.5D Take 1 Me thodi in (CIPRO) 01-[address] 500 MG 15:05: 00:00 (500 mg Hospita tablet 01 :00 total) by l mouth 2 (two) times a day. Last dose: 12/28/2021 , duration of therapy: 7 days, start date: 12/26/2021 HYDROcodone 2021-0 2021- [place] [id number] .5{tbl} Q12H Take 0.5 Methodi -acetaminop -14 - tablets by s t hen (NORCO) 15:05: 00:00 mouth Hosp adam 10-325 mg 01 :00 every 12 l per tablet (twelve) hours as needed for moderate pain .acute pain. Per prescripti on drug monitoring program, last filled: 12/06/2021 , quantity: 15 tablets, day supply: 7. ciprofloxac 2021-0 2021- No 500mg Q.5D Take 1 Me thodi in (CIPRO) 01-[address] 500 MG 15:05: 00:00 (500 mg Hospita tablet 01 :00 total) by l mouth 2 (two) times a day. Last dose: 12/28/2021 , duration of therapy: 7 days, start date: 12/26/2021 HYDROcodone 2021-0 2021- [place] [id number] .5{tbl} Q12H Take 0.5 Methodi -acetaminop 9-14 - tablets by s t hen ([employer]) 15:05: 00:00 mouth Hosp adam 10-325 mg 01 :00 every 12 l per tablet (twelve) hours as needed for moderate pain .acute pain. Per prescripti on drug monitoring program, last filled: 12/06/2021 , quantity: 15 tablets, day supply: 7. ciprofloxac 2022-0 Yes 500mg Q.5D Take 1 Met hodi in (Cipro) 9-[address] 500 MG 00:00: (500 mg Hospita tablet 00 total) by l mouth 2 (two) times a day. HYDROcodone 2022-0 Yes [id number] 1{tbl} Q6H Take 1 M ethodi -acetaminop 9-[address] hen ([employer]) 00:00: mouth Hospi ta 10-325 mg 00 every 6 l per tablet (six) hours as needed for severe pain .acute pain. Max Daily Amount: 4 tablets ciprofloxac 2022-0 Yes 500mg Q.5D Take 1 Met hodi in (Cipro) 9-[address] 500 MG 00:00: (500 mg Hospita tablet 00 total) by l mouth 2 (two) times a day. HYDROcodone 2022-0 Yes [id number] 1{tbl} Q6H Take 1 M ethodi -acetaminop 9-[address] hen ([employer]) 00:00: mouth Hospi ta 10-325 mg 00 every 6 l per tablet (six) hours as needed for severe pain .acute pain. Max Daily Amount: 4 tablets ciprofloxac 2022-0 Yes 500mg Q.5D Take 1 Met hodi in (Cipro) 9-[address] 500 MG 00:00: (500 mg Hospita tablet 00 total) by l mouth 2 (two) times a day. HYDROcodone 2022-0 Yes [id number] 1{tbl} Q6H Take 1 M ethodi -acetaminop 9-[address] hen ([employer]) 00:00: mouth Hospi ta 10-325 mg 00 every 6 l per tablet (six) hours as needed for severe pain .acute pain. Max Daily Amount: 4 tablets ondansetron 2022-0 2022- No 4mg Q8H Take 1 Met hodi ODT 9-13 10-14 tablet (4 st (ZOFRAN-ODT 00:00: 04:59 mg total) Hospita ) 4 MG 00 :00 by mouth l disintegrat every 8 ing tablet (eight) hours as needed for nausea or vomiting for up to 30 days. meloxicam 2022-0 2022- No 15mg QD Take 1 Metho di (Mobic) 15 9-13 10-14 tablet (15 st mg tablet 00:00: 04:59 mg total) Ho spita 00 :00 by mouth l daily for 30 days. oxybutynin 2022-0 2022- No 5mg Q.[id number] Take 1 Methodi (DITROPAN) - 10-14 [id number] tablet (5 st 5 MG tablet 00:00: 04:59 3D mg total) Hospita 00 :00 by mouth 3 l (three) times a day for 30 days. ondansetron 2021-0 2022- No 4mg Q8H Take 1 Met hodi ODT 12-31 10-14 tablet (4 st (ZOFRAN-ODT 00:00: 04:59 mg total) Hospita ) 4 MG 00 :00 by mouth l disintegrat every 8 ing tablet (eight) hours as needed for nausea or vomiting for up to 30 days. meloxicam 2022-0 2022- No 15mg QD Take 1 Metho di (Mobic) 15 12-31 10-14 tablet (15 st mg tablet 00:00: 04:59 mg total) Ho spita 00 :00 by mouth l daily for 30 days. oxybutynin 2021-0 2- No 5mg Q.[id number] Take 1 Methodi (DITROPAN) 12-31 10-14 [id number] tablet (5 st 5 MG tablet 00:00: 04:59 3D mg total) Hospita 00 :00 by mouth 3 l (three) times a day for 30 days. ondansetron 2022-0 2022- No 4mg Q8H Take 1 Met hodi ODT -13 10-14 tablet (4 st (ZOFRAN-ODT 00:00: 04:59 mg total) Hospita ) 4 MG 00 :00 by mouth l disintegrat every 8 ing tablet (eight) hours as needed for nausea or vomiting for up to 30 days. meloxicam 2022-0 2022- No 15mg QD Take 1 Metho di (Mobic) 15 12-31 10-14 tablet (15 st mg tablet 00:00: 04:59 mg total) Ho spita 00 :00 by mouth l daily for 30 days. oxybutynin 2021-2021- No 5mg Q.[id number] Take 1 Methodi (DITROPAN) 12-3114 [id number] tablet (5 st 5 MG tablet 00:00: 04:59 3D mg total) Hospita 00 :00 by mouth 3 l (three) times a day for 30 days. oxybutynin 2021-0 2021- No 15mg QD Take 1 Meth reba XL 12-31 tablet (15 st (DITROPAN 00:00: 00:00 mg total) Ho spita XL) 15 MG 00 :00 by mouth l 24 hr daily for tablet 30 days. meloxicam 2021-2021- No 7.5mg QD Take 1 Meth reba (Mobic) 7.5 12-[address] mg tablet 00:00: 00:00 (7.5 mg Hosp adam 00 :00 total) by l mouth daily for 30 days. meloxicam 2021-2021- No 7.5mg QD Take 1 Meth reba (Mobic) 7.5 12-[address] mg tablet 00:00: 00:00 (7.5 mg Hosp adam 00 :00 total) by l mouth daily for 30 days. oxybutynin 2021-0 2021- No 15mg QD Take 1 Meth reba XL 12-31 tablet (15 st (DITROPAN 00:00: 00:00 mg total) Ho spita XL) 15 MG 00 :00 by mouth l 24 hr daily for tablet 30 days. oxybutynin 2021-0 2021- No 15mg QD Take 1 Meth reba XL 12-31 tablet (15 st (DITROPAN 00:00: 00:00 mg total) Ho spita XL) 15 MG 00 :00 by mouth l 24 hr daily for tablet 30 days. meloxicam 2021-2021- No 7.5mg QD Take 1 Meth reba (Mobic) 7.5 12-[address] mg tablet 00:00: 00:00 (7.5 mg Hosp adam 00 :00 total) by l mouth daily for 30 days. meloxicam 2021-0 2- No 7.5mg QD Take 1 Meth reba (Mobic) 7.5 12-[address] mg tablet 00:00: 00:00 (7.5 mg Hosp adam 00 :00 total) by l mouth daily for 30 days. oxybutynin 2021-0 202- No 15mg QD Take 1 Meth reba XL 12-31 tablet (15 st (DITROPAN 00:00: 00:00 mg total) Ho spita XL) 15 MG 00 :00 by mouth l 24 hr daily for tablet 30 days. oxybutynin 2021-0 2021- No 15mg QD Take 1 Meth reba XL 12-31 tablet (15 st (DITROPAN 00:00: 00:00 mg total) Ho spita XL) 15 MG 00 :00 by mouth l 24 hr daily for tablet 30 days. meloxicam 2021-0 2021- No 7.5mg QD Take 1 Meth reba (Mobic) 7.5 12-[address] mg tablet 00:00: 00:00 (7.5 mg Hosp adam 00 :00 total) by l mouth daily for 30 days. meloxicam 2021-0 2021- No 7.5mg QD Take 1 Meth reba (Mobic) 7.5 12-[address] mg tablet 00:00: 00:00 (7.5 mg Hosp adam 00 :00 total) by l mouth daily for 30 days. oxybutynin 2021-0 2021- No 15mg QD Take 1 Meth reba XL 12-31 tablet (15 st (DITROPAN 00:00: 00:00 mg total) Ho spita XL) 15 MG 00 :00 by mouth l 24 hr daily for tablet 30 days. B12 LIPO-B B12 LIPO-B 2021-0 No B12 LIPO-B [place] IM QW IM QW 5-13 IM QW Communi 00:00: ty 00 Hospita l Clinics B12 LIPO-B B12 LIPO-B 2021-0 No B12 LIPO-B [place] IM QW IM QW 5-13 IM [facility]W [facility] B12 LIPO-B No B12 LIPO-B [place] IM QW IM QW 5-13 IM QW [facility] 00:00: [facility]B B12 LIPO-B No B12 LIPO-B [place] IM QW IM QW 5-13 IM QW [facility]i 00:00: [facility] L[facility]-B B12 LIPO-B No B12 LIPO-B [place] IM QW IM QW 5-13 IM QW Communi 00:00: [facility] B[facility] L[facility]-B B12 LIPO-B No B12 LIPO-B [place] IM QW IM QW 5-13 IM QW Communi 00:00: ty 00 [facility] estradiol estradiol No estradiol [place] 12.5 mg 12.5 mg 07-19 12.5 mg Commun i implant implant 16:25: implant ty pelletTake pelletTake 29 pelletTake Hospita 1 pellet by 1 pellet by 1 pellet l implantatio implantatio by C linics n route. n route. implantati on route. testosteron testosteron No testostero [place] e 100 mg e 100 mg 4-01 ne 100 mg Co mmuni implant implant 16:25: implant ty pelletTake pelletTake 15 pelletTake Hospita 112.5 mg by 112.5 mg by 112.5 mg l implantatio implantatio by C linics n route. n route. implantati on route. azelastine azelastine No azelastine [place] 205.5 mcg 205.5 mcg 205.5 mcg Communi (0.15 %) (0.15 %) (0.15 %) ty nasal spray nasal spray nasal Hospita USE 1 SPRAY USE 1 SPRAY spray USE l IN EACH IN EACH 1 SPRAY IN Cli nics NOSTRIL 2 NOSTRIL 2 EACH TIMES A DAY TIMES A DAY NOSTRIL 2 FOR FOR TIMES A ALLRGIES ALLRGIES DAY FOR ALLRGIES escitalopra escitalopra No escitalopr [place] m 10 mg m 10 mg am 10 mg Commu ni tablet TAKE tablet TAKE tablet ty 1 TABLET BY 1 TABLET BY TAKE 1 Hospita MOUTH EVERY MOUTH EVERY TABLET BY l DAY FOR 90 DAY FOR 90 MOUTH Cl inics DAYS DAYS EVERY DAY FOR 90 DAYS estradiol estradiol No 1pellet estradiol [place] 12.5 mg 12.5 mg (s) 12.5 mg Commun i implant implant implant ty pellet Take pellet Take pellet Hospita 1 pellet by 1 pellet by Take 1 l implantatio implantatio pellet by Clinics n route. n route. implantati on route. famotidine famotidine No famotidine [place] 20 mg 20 mg 20 mg Communi tablet TAKE tablet TAKE tablet ty 1 TABLET BY 1 TABLET BY TAKE 1 Hospita MOUTH TWICE MOUTH TWICE TABLET BY l A DAY A DAY MOUTH Clinics BEFORE BEFORE TWICE A MEALS MEALS DAY BEFORE MEALS levocetiriz levocetiriz No levocetiri [place] ine 5 mg ine 5 mg zine 5 mg Co mmuni tablet TAKE tablet TAKE tablet ty 1 TABLET BY 1 TABLET BY TAKE 1 Hospita MOUTH MOUTH TABLET BY l EVERYDAY AT EVERYDAY AT MOUTH Clinics BEDTIME BEDTIME EVERYDAY AT BEDTIME montelukast montelukast No montelukas [place] 10 mg 10 mg t 10 mg Communi tablet TAKE tablet TAKE tablet ty 1 TABLET BY 1 TABLET BY TAKE 1 Hospita MOUTH EVERY MOUTH EVERY TABLET BY l DAY DAY MOUTH Clinics EVERY DAY phenazopyri phenazopyri No phenazopyr [place] dine 200 mg dine 200 mg idine 200 Communi tablet TAKE tablet TAKE mg tablet ty 1 TABLET BY 1 TABLET BY TAKE 1 Hospita MOUTH EVERY MOUTH EVERY TABLET BY l 8 HOURS 8 HOURS MOUTH Cl inics NEEDED FOR NEEDED FOR EVERY 8 URINARY URINARY HOURS PROBLEMS PROBLEMS NEEDED FOR URINARY PROBLEMS progesteron progesteron No progestero [place] e e ne Communi micronized micronized micronized ty 200 mg 200 mg 200 mg Hospita capsule capsule capsule l TAKE 1 TAKE 1 TAKE 1 Clinics CAPSULE BY CAPSULE BY CAPSULE BY MOUTH EVERY MOUTH EVERY MOUTH DAY FOR 90 DAY FOR 90 EVERY DAY DAYS DAYS FOR 90 DAYS rosuvastati rosuvastati No rosuvastat [place] n 20 mg n 20 mg in 20 mg Commu ni tablet TAKE tablet TAKE tablet ty 1 TABLET BY 1 TABLET BY TAKE 1 Hospita MOUTH EVERY MOUTH EVERY TABLET BY l DAY WITH A DAY WITH A MOUTH Cl inics MEAL MEAL EVERY DAY WITH A MEAL Rybelsus 7 Rybelsus 7 No Rybelsus 7 [place] mg tablet mg tablet mg tablet Communi TAKE 1 TAKE 1 TAKE 1 ty TABLET TABLET TABLET Hospita DAILY AT DAILY AT DAILY AT l LEAST 30 LEAST 30 LEAST 30 Cli nics MINUTES MINUTES MINUTES BEFORE BEFORE BEFORE FIRST FOOD, FIRST FOOD, FIRST BEVERAGE OR BEVERAGE OR FOOD, OTHER ORAL OTHER ORAL BEVERAGE MEDICINE MEDICINE OR OTHER ORAL MEDICINE sulfamethox sulfamethox No sulfametho [place] azole 800 azole 800 xazole 800 Communi mg-trimetho mg-trimetho mg-trimeth ty prim 160 mg prim 160 mg oprim 160 Hospita tablet TAKE tablet TAKE mg tablet l 1 TABLET BY 1 TABLET BY TAKE 1 Clinics MOUTH EVERY MOUTH EVERY TABLET BY 12 HOURS 12 HOURS MOUTH FOR 7 DAYS FOR 7 DAYS EVERY 12 HOURS FOR 7 DAYS Synjardy XR Synjardy XR No Synjardy [place] 25 mg-1,000 25 mg-1,000 XR 25 Communi mg tablet, mg tablet, mg-1,000 ty extended extended mg tablet, H ospita release release extended l TAKE 1 TAKE 1 release Clinics TABLET BY TABLET BY TAKE 1 MOUTH EVERY MOUTH EVERY TABLET BY MORNING MORNING MOUTH WITH WITH EVERY BREAKFAST BREAKFAST MORNING WITH BREAKFAST testosteron testosteron No 112.5mg testostero [place] e 100 mg e 100 mg ne 100 mg Co mmuni implant implant implant ty pellet Take pellet Take pellet Hospita 112.5 mg by 112.5 mg by Take 112.5 l implantatio implantatio mg by Clinics n route. n route. implantati on route. azelastine azelastine No azelastine [place] 205.5 mcg 205.5 mcg 205.5 mcg Communi (0.15 %) (0.15 %) (0.15 %) ty nasal spray nasal spray nasal Hospita USE 1 SPRAY USE 1 SPRAY spray USE l IN EACH IN EACH 1 SPRAY IN Cli nics NOSTRIL 2 NOSTRIL 2 EACH TIMES A DAY TIMES A DAY NOSTRIL 2 FOR FOR TIMES A ALLRGIES ALLRGIES DAY FOR ALLRGIES escitalopra escitalopra No escitalopr [place] m 10 mg m 10 mg am 10 mg Commu ni tablet TAKE tablet TAKE tablet ty 1 TABLET BY 1 TABLET BY TAKE 1 Hospita MOUTH EVERY MOUTH EVERY TABLET BY l DAY FOR 90 DAY FOR 90 MOUTH Cl inics DAYS DAYS EVERY DAY FOR 90 DAYS estradiol estradiol No 1pellet estradiol [place] 12.5 mg 12.5 mg (s) 12.5 mg Commun i implant implant implant ty pellet Take pellet Take pellet Hospita 1 pellet by 1 pellet by Take 1 l implantatio implantatio pellet by Clinics n route. n route. implantati on route. famotidine famotidine No famotidine [place] 20 mg 20 mg 20 mg Communi tablet TAKE tablet TAKE tablet ty 1 TABLET BY 1 TABLET BY TAKE 1 Hospita MOUTH TWICE MOUTH TWICE TABLET BY l A DAY A DAY MOUTH Clinics BEFORE BEFORE TWICE A MEALS MEALS DAY BEFORE MEALS levocetiriz levocetiriz No levocetiri [place] ine 5 mg ine 5 mg zine 5 mg Co mmuni tablet TAKE tablet TAKE tablet ty 1 TABLET BY 1 TABLET BY TAKE 1 Hospita MOUTH MOUTH TABLET BY l EVERYDAY AT EVERYDAY AT MOUTH Clinics BEDTIME BEDTIME EVERYDAY AT BEDTIME montelukast montelukast No montelukas [place] 10 mg 10 mg t 10 mg Communi tablet TAKE tablet TAKE tablet ty 1 TABLET BY 1 TABLET BY TAKE 1 Hospita MOUTH EVERY MOUTH EVERY TABLET BY l DAY DAY MOUTH Clinics EVERY DAY phenazopyri phenazopyri No phenazopyr [place] dine 200 mg dine 200 mg idine 200 Communi tablet TAKE tablet TAKE mg tablet ty 1 TABLET BY 1 TABLET BY TAKE 1 Hospita MOUTH EVERY MOUTH EVERY TABLET BY l 8 HOURS 8 HOURS MOUTH Cl inics NEEDED FOR NEEDED FOR EVERY 8 URINARY URINARY HOURS PROBLEMS PROBLEMS NEEDED FOR URINARY PROBLEMS progesteron progesteron No progestero [place] e e ne Communi micronized micronized micronized ty 200 mg 200 mg 200 mg Hospita capsule capsule capsule l TAKE 1 TAKE 1 TAKE 1 Clinics CAPSULE BY CAPSULE BY CAPSULE BY MOUTH EVERY MOUTH EVERY MOUTH DAY FOR 90 DAY FOR 90 EVERY DAY DAYS DAYS FOR 90 DAYS rosuvastati rosuvastati No rosuvastat [place] n 20 mg n 20 mg in 20 mg Commu ni tablet TAKE tablet TAKE tablet ty 1 TABLET BY 1 TABLET BY TAKE 1 Hospita MOUTH EVERY MOUTH EVERY TABLET BY l DAY WITH A DAY WITH A MOUTH Cl inics MEAL MEAL EVERY DAY WITH A MEAL [employer]belsus 7 Rybelsus 7 No Rybelsus 7 [place] mg tablet mg tablet mg tablet Communi TAKE 1 TAKE 1 TAKE 1 ty TABLET TABLET TABLET Hospita DAILY AT DAILY AT DAILY AT l LEAST 30 LEAST 30 LEAST 30 Cli nics MINUTES MINUTES MINUTES BEFORE BEFORE BEFORE FIRST FOOD, FIRST FOOD, FIRST BEVERAGE OR BEVERAGE OR FOOD, OTHER ORAL OTHER ORAL BEVERAGE MEDICINE MEDICINE OR OTHER ORAL MEDICINE sulfamethox sulfamethox No sulfametho [place] azole 800 azole 800 xazole 800 Communi mg-trimetho mg-trimetho mg-trimeth ty prim 160 mg prim 160 mg oprim 160 Hospita tablet TAKE tablet TAKE mg tablet l 1 TABLET BY 1 TABLET BY TAKE 1 Clinics MOUTH EVERY MOUTH EVERY TABLET BY 12 HOURS 12 HOURS MOUTH FOR 7 DAYS FOR 7 DAYS EVERY 12 HOURS FOR 7 DAYS Synjardy XR Synjardy XR No Synjardy [place] 25 mg-1,000 25 mg-1,000 XR 25 Communi mg tablet, mg tablet, mg-1,000 ty extended extended mg tablet, H ospita release release extended l TAKE 1 TAKE 1 release [facility] TABLET BY TABLET BY TAKE 1 MOUTH EVERY MOUTH EVERY TABLET BY MORNING MORNING MOUTH WITH WITH EVERY BREAKFAST BREAKFAST MORNING WITH BREAKFAST testosteron testosteron No 112.5mg testostero [place] e 100 mg e 100 mg ne 100 mg Co [facility]muni implant implant implant ty pellet Take pellet Take pellet Hospita 112.5 mg by 112.5 mg by Take 112.5 l implantatio implantatio mg by Clinics n route. n route. implantati on route. azelastine azelastine No azelastine [place] 205.5 mcg 205.5 mcg 205.5 mcg Communi (0.15 %) (0.15 %) (0.15 %) ty nasal spray nasal spray nasal Hospita USE 1 SPRAY USE 1 SPRAY spray USE l IN EACH IN EACH 1 SPRAY IN Cli nics NOSTRIL 2 NOSTRIL 2 EACH TIMES A DAY TIMES A DAY NOSTRIL 2 FOR FOR TIMES A ALLRGIES ALLRGIES DAY FOR ALLRGIES escitalopra escitalopra No escitalopr [place] m 10 mg m 10 mg am 10 mg Commu ni tablet TAKE tablet TAKE tablet ty 1 TABLET BY 1 TABLET BY TAKE 1 Hospita MOUTH EVERY MOUTH EVERY TABLET BY l DAY FOR 90 DAY FOR 90 MOUTH Cl inics DAYS DAYS EVERY DAY FOR 90 DAYS estradiol estradiol No 1pellet estradiol [place] 12.5 mg 12.5 mg (s) 12.5 mg [facility] implant implant implant ty pellet Take pellet Take pellet [facility]osp[facility] 1 pellet by 1 pellet by Take 1 l implantatio implantatio pellet by Clinics n route. n route. implantati on route. famotidine famotidine No famotidine [place] 20 mg 20 mg 20 mg [facility] tablet TAKE tablet TAKE tablet ty 1 TABLET BY 1 TABLET BY TAKE 1 [facility]osp[facility] MOUTH TWICE MOUTH TWICE TABLET BY l A DAY A DAY MOUTH Clinics BEFORE BEFORE TWICE A MEALS MEALS DAY BEFORE MEALS levocetiriz levocetiriz No levocetiri [place] ine 5 mg ine 5 mg zine 5 mg [facility] tablet TAKE tablet TAKE tablet ty 1 TABLET BY 1 TABLET BY TAKE 1 [facility]osp[facility] MOUTH MOUTH TABLET BY l EVERYDAY AT EVERYDAY AT MOUTH Clinics BEDTIME BEDTIME EVERYDAY AT BEDTIME montelukast montelukast No montelukas [place] 10 mg 10 mg t 10 mg [facility] tablet TAKE tablet TAKE tablet ty 1 TABLET BY 1 TABLET BY TAKE 1 [facility]osp[facility] MOUTH EVERY MOUTH EVERY TABLET BY l DAY DAY MOUTH Clinics EVERY DAY phenazopyri phenazopyri No phenazopyr [place] dine 200 mg dine 200 mg idine 200 [facility] tablet TAKE tablet TAKE mg tablet ty 1 TABLET BY 1 TABLET BY TAKE 1 [facility]ospita MOUTH EVERY MOUTH EVERY TABLET BY l 8 HOURS 8 HOURS MOUTH Cl inics NEEDED FOR NEEDED FOR EVERY 8 URINARY URINARY HOURS PROBLEMS PROBLEMS NEEDED FOR URINARY PROBLEMS progesteron progesteron No progestero [place] e [facility] ne [facility] micronized micronized micronized ty 200 mg 200 mg 200 mg [facility] capsule capsule capsule l TAKE 1 TAKE 1 TAKE 1 Clinics CAPSULE BY CAPSULE BY CAPSULE BY MOUTH EVERY MOUTH EVERY MOUTH DAY FOR 90 DAY FOR 90 EVERY DAY DAYS DAYS FOR 90 DAYS rosuvastati rosuvastati No rosuvastat [place] n 20 mg n 20 mg in 20 mg [facility] ni tablet TAKE tablet TAKE tablet ty 1 TABLET BY 1 TABLET BY TAKE 1 [facility]osp[facility] MOUTH EVERY MOUTH EVERY TABLET BY l DAY WITH A DAY WITH A MOUTH Cl inics MEAL MEAL EVERY DAY WITH A MEAL Rybelsus 7 [facility] 7 No Rybelsus 7 [place] mg tablet mg tablet mg tablet [facility] TAKE 1 TAKE 1 TAKE 1 ty TABLET TABLET TABLET [facility]osp[facility] DAILY AT DAILY AT DAILY AT l LEAST 30 LEAST 30 LEAST 30 Cli nics MINUTES MINUTES MINUTES BEFORE BEFORE BEFORE FIRST FOOD, FIRST FOOD, FIRST BEVERAGE OR BEVERAGE OR FOOD, OTHER ORAL OTHER ORAL BEVERAGE MEDICINE MEDICINE OR OTHER ORAL MEDICINE sulfamethox sulfamethox No sulfametho [place] azole 800 azole 800 xazole 800 [facility] mg-trimetho mg-trimetho mg-trimeth ty prim 160 mg prim 160 mg oprim 160 [facility] tablet TAKE tablet TAKE mg tablet l 1 TABLET BY 1 TABLET BY TAKE 1 Clinics MOUTH EVERY MOUTH EVERY TABLET BY 12 HOURS 12 HOURS MOUTH FOR 7 DAYS FOR 7 DAYS EVERY 12 HOURS FOR 7 DAYS Synjardy XR Synjardy XR No Synjardy [place] 25 mg-1,000 25 mg-1,000 XR 25 [facility] mg tablet, mg tablet, mg-1,000 ty extended extended mg tablet, [facility] release release extended l TAKE 1 TAKE 1 release Clinics TABLET BY TABLET BY TAKE 1 MOUTH EVERY MOUTH EVERY TABLET BY MORNING MORNING MOUTH WITH WITH EVERY BREAKFAST BREAKFAST MORNING WITH BREAKFAST testosteron testosteron No 112.5mg testostero [place] e 100 mg e 100 mg ne 100 mg [facility] implant implant implant ty pellet Take pellet Take pellet [facility] 112.5 mg by 112.5 mg by Take 112.5 l implantatio implantatio mg by Clinics n route. n route. implantati on route. azelastine azelastine No azelastine [place] 205.5 mcg 205.5 mcg 205.5 mcg [facility] (0.15 %) (0.15 %) (0.15 %) ty nasal spray nasal spray nasal [facility]osp[facility] USE 1 SPRAY USE 1 SPRAY spray USE l IN EACH IN EACH 1 SPRAY IN Cli nics NOSTRIL 2 NOSTRIL 2 EACH TIMES A DAY TIMES A DAY NOSTRIL 2 FOR FOR TIMES A ALLRGIES ALLRGIES DAY FOR ALLRGIES escitalopra escitalopra No escitalopr [place] m 10 mg m 10 mg am 10 mg [facility] ni tablet TAKE tablet TAKE tablet ty 1 TABLET BY 1 TABLET BY TAKE 1 [facility]osp[facility] MOUTH EVERY MOUTH EVERY TABLET BY l DAY FOR 90 DAY FOR 90 MOUTH Cl inics DAYS DAYS EVERY DAY FOR 90 DAYS estradiol estradiol No 1pellet estradiol [place] 12.5 mg 12.5 mg (s) 12.5 mg [facility] implant implant implant ty pellet Take pellet Take pellet [facility] 1 pellet by 1 pellet by Take 1 l implantatio implantatio pellet by Clinics n route. n route. implantati on route. famotidine famotidine No famotidine [place] 20 mg 20 mg 20 mg [facility] tablet TAKE tablet TAKE tablet ty 1 TABLET BY 1 TABLET BY TAKE 1 [facility] MOUTH TWICE MOUTH TWICE TABLET BY l A DAY A DAY MOUTH Clinics BEFORE BEFORE TWICE A MEALS MEALS DAY BEFORE MEALS levocetiriz levocetiriz No levocetiri [place] ine 5 mg ine 5 mg zine 5 mg [facility] tablet TAKE tablet TAKE tablet ty 1 TABLET BY 1 TABLET BY TAKE 1 [facility]ita MOUTH MOUTH TABLET BY l EVERYDAY AT EVERYDAY AT MOUTH Clinics BEDTIME BEDTIME EVERYDAY AT BEDTIME montelukast montelukast No montelukas [place] 10 mg 10 mg t 10 mg [facility] tablet TAKE tablet TAKE tablet ty 1 TABLET BY 1 TABLET BY TAKE 1 [facility] MOUTH EVERY MOUTH EVERY TABLET BY l DAY DAY MOUTH Clinics EVERY DAY phenazopyri phenazopyri No phenazopyr [place] dine 200 mg dine 200 mg idine 200 [facility] tablet TAKE tablet TAKE mg tablet ty 1 TABLET BY 1 TABLET BY TAKE 1 [facility] MOUTH EVERY MOUTH EVERY TABLET BY l 8 HOURS 8 HOURS MOUTH Cl inics NEEDED FOR NEEDED FOR EVERY 8 URINARY URINARY HOURS PROBLEMS PROBLEMS NEEDED FOR URINARY PROBLEMS progesteron progesteron No progestero [place] e e ne [facility] micronized micronized micronized ty 200 mg 200 mg 200 mg [facility] capsule capsule capsule l TAKE 1 TAKE 1 TAKE 1 Clinics CAPSULE BY CAPSULE BY CAPSULE BY MOUTH EVERY MOUTH EVERY MOUTH DAY FOR 90 DAY FOR 90 EVERY DAY DAYS DAYS FOR 90 DAYS rosuvastati rosuvastati No rosuvastat [place] n 20 mg n 20 mg in 20 mg [facility] ni tablet TAKE tablet TAKE tablet ty 1 TABLET BY 1 TABLET BY TAKE 1 [facility]ita MOUTH EVERY MOUTH EVERY TABLET BY l DAY WITH A DAY WITH A MOUTH Cl inics MEAL MEAL EVERY DAY WITH A MEAL Rybelsus 7 [facility] 7 No Rybelsus 7 [place] mg tablet mg tablet mg tablet [facility] TAKE 1 TAKE 1 TAKE 1 ty TABLET TABLET TABLET [facility]osp[facility] DAILY AT DAILY AT DAILY AT l LEAST 30 LEAST 30 LEAST 30 Cli nics MINUTES MINUTES MINUTES BEFORE BEFORE BEFORE FIRST FOOD, FIRST FOOD, FIRST BEVERAGE OR BEVERAGE OR FOOD, OTHER ORAL OTHER ORAL BEVERAGE MEDICINE MEDICINE OR OTHER ORAL MEDICINE sulfamethox sulfamethox No sulfametho [place] azole 800 azole 800 xazole 800 [facility] mg-trimetho mg-trimetho mg-trimeth ty prim 160 mg prim 160 mg oprim 160 [facility] tablet TAKE tablet TAKE mg tablet l 1 TABLET BY 1 TABLET BY TAKE 1 Clinics MOUTH EVERY MOUTH EVERY TABLET BY 12 HOURS 12 HOURS MOUTH FOR 7 DAYS FOR 7 DAYS EVERY 12 HOURS FOR 7 DAYS Synjardy XR Synjardy XR No Synjardy [place] 25 mg-1,000 25 mg-1,000 XR 25 [facility] mg tablet, mg tablet, mg-1,000 ty extended extended mg tablet, [facility] release release extended l TAKE 1 TAKE 1 release Clinics TABLET BY TABLET BY TAKE 1 MOUTH EVERY MOUTH EVERY TABLET BY MORNING MORNING MOUTH WITH WITH EVERY BREAKFAST BREAKFAST MORNING WITH BREAKFAST testosteron testosteron No 112.5mg testostero [place] e 100 mg e 100 mg ne 100 mg [facility] implant implant implant ty pellet Take pellet Take pellet [facility] 112.5 mg by 112.5 mg by Take 112.5 l implantatio implantatio mg by Clinics n route. n route. implantati on route. amoxicillin amoxicillin No amoxicilli [place] 500 mg 500 mg n 500 mg [facility] capsule capsule capsule ty TAKE 1 TAKE 1 TAKE 1 [facility] CAPSULE BY CAPSULE BY CAPSULE BY l MOUTH THREE MOUTH THREE MOUTH Clinics TIMES A DAY TIMES A DAY THREE FOR 10 DAYS FOR 10 DAYS TIMES A DAY FOR 10 DAYS amoxicillin amoxicillin No amoxicilli [place] 500 500 n 500 [facility] mg-potassiu mg-potassiu mg-potassi ty m m um [facility] clavulanate clavulanate clavulanat l 125 mg 125 mg e 125 mg Clinics tablet TAKE tablet TAKE tablet 1 TABLET BY 1 TABLET BY TAKE 1 MOUTH TWICE MOUTH TWICE TABLET BY A DAY A DAY MOUTH TWICE A DAY azelastine azelastine No azelastine [place] 205.5 mcg 205.5 mcg 205.5 mcg [facility] (0.15 %) (0.15 %) (0.15 %) ty nasal spray nasal spray nasal [facility] USE 1 SPRAY USE 1 SPRAY spray USE l IN EACH IN EACH 1 SPRAY IN Cli nics NOSTRIL 2 NOSTRIL 2 EACH TIMES A DAY TIMES A DAY NOSTRIL 2 FOR FOR TIMES A ALLRGIES ALLRGIES DAY FOR ALLRGIES ciprofloxac ciprofloxac No ciprofloxa [place] in 500 mg in 500 mg leslee 500 mg [facility] tablet TAKE tablet TAKE tablet ty 1 TABLET BY 1 TABLET BY TAKE 1 [facility]ospita MOUTH EVERY MOUTH EVERY TABLET BY l DAY DAY MOUTH Clinics EVERY DAY escitalopra escitalopra No escitalopr [place] m 10 mg m 10 mg am 10 mg [facility] ni tablet TAKE tablet TAKE tablet ty 1 TABLET BY 1 TABLET BY TAKE 1 [facility] MOUTH EVERY MOUTH EVERY TABLET BY l DAY FOR 90 DAY FOR 90 MOUTH Cl [facility]ics DAYS DAYS EVERY DAY FOR 90 DAYS estradiol estradiol No 1pellet estradiol [place] 12.5 mg 12.5 mg (s) 12.5 mg [facility] implant implant implant ty pellet Take pellet Take pellet [facility] 1 pellet by 1 pellet by Take 1 l implantatio implantatio pellet by Clinics n route. n route. implantati on route. famotidine famotidine No famotidine [place] 20 mg 20 mg 20 mg [facility] tablet TAKE tablet TAKE tablet ty 1 TABLET BY 1 TABLET BY TAKE 1 [facility] MOUTH TWICE MOUTH TWICE TABLET BY l A DAY A DAY MOUTH Clinics BEFORE BEFORE TWICE A MEALS MEALS DAY BEFORE MEALS fluconazole fluconazole No fluconazol [place] 100 mg 100 mg e 100 mg [facility] tablet tablet tablet ty [facility]osp[facility] l Clinics fluconazole fluconazole No fluconazol [place] 150 mg 150 mg e 150 mg [facility] tablet TAKE tablet TAKE tablet ty 1 TABLET BY 1 TABLET BY TAKE 1 [facility]ospita MOUTH MOUTH TABLET BY l ONE DOSE ONE DOSE MOUTH Cli nics ONE DOSE hydrocodone hydrocodone No hydrocodon [place] 10 10 e 10 [facility] mg-acetamin mg-acetamin mg-acetami ty ophen 325 ophen 325 nophen 325 [facility]osp[facility] mg tablet mg tablet mg tablet l TAKE 1 TAKE 1 TAKE 1 Clinics TABLET BY TABLET BY TABLET BY MOUTH EVERY MOUTH EVERY MOUTH 6 (SIX) 6 (SIX) EVERY 6 HOURS HOURS (SIX) NEEDED FOR NEEDED FOR HOURS SEVERE SEVERE NEEDED FOR PAIN. MAX 4 PAIN. MAX 4 SEVERE TABLETS TABLETS PAIN. MAX DAILY DAILY 4 TABLETS DAILY ketorolac ketorolac No ketorolac [place] 10 mg 10 mg 10 mg [facility] tablet TAKE tablet TAKE tablet ty 1 TABLET BY 1 TABLET BY TAKE 1 [facility] MOUTH EVERY MOUTH EVERY TABLET BY l 6 HOURS 6 HOURS MOUTH Cl inics NEEDED NOT NEEDED NOT EVERY 6 TO EXCEED TO EXCEED HOURS 40 MG IN 24 40 MG IN 24 NEEDED NOT HOURS HOURS TO EXCEED 40 MG IN 24 HOURS levocetiriz levocetiriz No levocetiri [place] ine 5 mg ine 5 mg zine 5 mg [facility] tablet TAKE tablet TAKE tablet ty 1 TABLET BY 1 TABLET BY TAKE 1 [facility] MOUTH MOUTH TABLET BY l EVERYDAY AT EVERYDAY AT MOUTH Clinics BEDTIME BEDTIME EVERYDAY AT BEDTIME meloxicam meloxicam No meloxicam [place] 15 mg 15 mg 15 mg [facility] tablet TAKE tablet TAKE tablet ty 1 TABLET BY 1 TABLET BY TAKE 1 [facility] MOUTH EVERY MOUTH EVERY TABLET BY l DAY DAY MOUTH Clinics EVERY DAY montelukast montelukast No montelukas [place] 10 mg 10 mg t 10 mg [facility] tablet TAKE tablet TAKE tablet ty 1 TABLET BY 1 TABLET BY TAKE 1 [facility] MOUTH EVERY MOUTH EVERY TABLET BY l DAY DAY MOUTH Clinics EVERY DAY ondansetron ondansetron No ondansetro [place] 4 mg 4 mg n 4 mg [facility] disintegrat disintegrat disintegra ty ing tablet ing tablet ting Hos travis TAKE 1 TAKE 1 tablet l TABLET BY TABLET BY TAKE 1 Cli nics MOUTH EVERY MOUTH EVERY TABLET BY 8 HOURS 8 HOURS MOUTH NEEDED FOR NEEDED FOR EVERY 8 NAUSEA OR NAUSEA OR HOURS VOMITING VOMITING NEEDED FOR NAUSEA OR VOMITING oxybutynin oxybutynin No oxybutynin [place] chloride 5 chloride 5 chloride 5 [facility] mg tablet mg tablet mg tablet ty TAKE 1 TAKE 1 TAKE 1 [facility]osp[facility] TABLET (5 TABLET (5 TABLET (5 l MG TOTAL) MG TOTAL) MG TOTAL) Clinics BY MOUTH 3 BY MOUTH 3 BY MOUTH 3 (THREE) (THREE) (THREE) TIMES A DAY TIMES A DAY TIMES A FOR 30 FOR 30 DAY FOR 30 DAYS. DAYS. DAYS. phenazopyri phenazopyri No phenazopyr [place] dine 200 mg dine 200 mg idine 200 [facility] tablet TAKE tablet TAKE mg tablet ty 1 TABLET BY 1 TABLET BY TAKE 1 [facility] MOUTH THREE MOUTH THREE TABLET BY l TIMES A DAY TIMES A DAY MOUTH Clinics FOR 2 DAYS FOR 2 DAYS THREE NEEDED NEEDED TIMES A DAY FOR 2 DAYS NEEDED potassium potassium No potassium [place] citrate ER citrate ER citrate ER [facility] 15 mEq 15 mEq 15 mEq ty (1,620 mg) (1,620 mg) (1,620 mg) [facility]osp[facility] tablet,exte tablet,exte tablet,ext l nded nded ended Clinics release release release TAKE 1 TAKE 1 TAKE 1 TABLET BY TABLET BY TABLET BY MOUTH TWICE MOUTH TWICE MOUTH A DAY WITH A DAY WITH TWICE A MEALS MEALS DAY WITH MEALS progesteron progesteron No progestero [place] e e ne [facility] micronized micronized micronized ty 200 mg 200 mg 200 mg [facility] capsule capsule capsule l TAKE 1 TAKE 1 TAKE 1 Clinics CAPSULE BY CAPSULE BY CAPSULE BY MOUTH EVERY MOUTH EVERY MOUTH DAY DAY EVERY DAY ropinirole ropinirole No ropinirole [place] 0.5 mg 0.5 mg 0.5 mg [facility] tablet TAKE tablet TAKE tablet ty 1 TABLET BY 1 TABLET BY TAKE 1 [facility] MOUTH AT MOUTH AT TABLET BY l BEDTIME 2 BEDTIME 2 MOUTH AT C linics HOURS HOURS BEDTIME 2 BEFORE BEFORE HOURS SLEEP SLEEP BEFORE SLEEP rosuvastati rosuvastati No rosuvastat [place] n 20 mg n 20 mg in 20 mg [facility] ni tablet TAKE tablet TAKE tablet ty 1 TABLET BY 1 TABLET BY TAKE 1 [facility] MOUTH EVERY MOUTH EVERY TABLET BY l DAY WITH A DAY WITH A MOUTH Cl inics MEAL MEAL EVERY DAY WITH A MEAL Rybelsus 14 [facility]bels[facility] 14 No Rybelsus [place] mg tablet mg tablet 14 mg Comm uni TAKE 1 TAKE 1 tablet ty TABLET AT TABLET AT TAKE 1 Hos travis LEAST 30 LEAST 30 TABLET AT l MINUTES MINUTES LEAST 30 Clini cs BEFORE BEFORE MINUTES FIRST FOOD, FIRST FOOD, BEFORE BEVERAGE OR BEVERAGE OR FIRST OTHER OTHER FOOD, MEDICINE OF MEDICINE OF BEVERAGE THE DAY THE DAY OR OTHER MEDICINE OF THE DAY Rybelsus 7 [facility] 7 No Rybelsus 7 [place] mg tablet mg tablet mg tablet [facility] TAKE 1 TAKE 1 TAKE 1 ty TABLET TABLET TABLET [facility] DAILY AT DAILY AT DAILY AT l LEAST 30 LEAST 30 LEAST 30 Cli nics MINUTES MINUTES MINUTES BEFORE BEFORE BEFORE FIRST FOOD, FIRST FOOD, FIRST BEVERAGE OR BEVERAGE OR FOOD, OTHER ORAL OTHER ORAL BEVERAGE MEDICINE MEDICINE OR OTHER ORAL MEDICINE sulfamethox sulfamethox No sulfametho [place] azole 800 azole 800 xazole 800 [facility] mg-trimetho mg-trimetho mg-trimeth ty prim 160 mg prim 160 mg oprim 160 [facility] tablet TAKE tablet TAKE mg tablet l 1 TABLET BY 1 TABLET BY TAKE 1 Clinics MOUTH EVERY MOUTH EVERY TABLET BY 12 HOURS 12 HOURS MOUTH FOR 10 DAYS FOR 10 DAYS EVERY 12 HOURS FOR 10 DAYS Synjardy XR Synjardy XR No Synjardy [place] 25 mg-1,000 25 mg-1,000 XR 25 [facility] mg tablet, mg tablet, mg-1,000 ty extended extended mg tablet, [facility] release release extended l TAKE 1 TAKE 1 release Clinics TABLET BY TABLET BY TAKE 1 MOUTH EVERY MOUTH EVERY TABLET BY MORNING MORNING MOUTH WITH WITH EVERY BREAKFAST BREAKFAST MORNING WITH BREAKFAST testosteron testosteron No 112.5mg testostero [place] e 100 mg e 100 mg ne 100 mg [facility] implant implant implant ty pellet Take pellet Take pellet [facility] 112.5 mg by 112.5 mg by Take 112.5 l implantatio implantatio mg by Clinics n route. n route. implantati on route. azelastine azelastine No azelastine [place] 205.5 mcg 205.5 mcg 205.5 mcg [facility] (0.15 %) (0.15 %) (0.15 %) ty nasal spray nasal spray nasal [facility] USE 1 SPRAY USE 1 SPRAY spray USE l IN EACH IN EACH 1 SPRAY IN Cli nics NOSTRIL 2 NOSTRIL 2 EACH TIMES A DAY TIMES A DAY NOSTRIL 2 FOR FOR TIMES A ALLRGIES ALLRGIES DAY FOR ALLRGIES estradiol estradiol No 1pellet estradiol [place] 12.5 mg 12.5 mg (s) 12.5 mg [facility] i implant implant implant ty pellet Take pellet Take pellet [facility] 1 pellet by 1 pellet by Take 1 l implantatio implantatio pellet by Clinics n route. n route. implantati on route. famotidine famotidine No famotidine [place] 20 mg 20 mg 20 mg [facility] tablet TAKE tablet TAKE tablet ty 1 TABLET BY 1 TABLET BY TAKE 1 [facility] MOUTH TWICE MOUTH TWICE TABLET BY l A DAY A DAY MOUTH Clinics BEFORE BEFORE TWICE A MEALS MEALS DAY BEFORE MEALS ketorolac ketorolac No ketorolac [place] 10 mg 10 mg 10 mg [facility] tablet TAKE tablet TAKE tablet ty 1 TABLET BY 1 TABLET BY TAKE 1 [facility] MOUTH EVERY MOUTH EVERY TABLET BY l 6 HOURS 6 HOURS MOUTH Cl inics NEEDED NOT NEEDED NOT EVERY 6 TO EXCEED TO EXCEED HOURS 40 MG IN 24 40 MG IN 24 NEEDED NOT HOURS HOURS TO EXCEED 40 MG IN 24 HOURS levocetiriz levocetiriz No levocetiri [place] ine 5 mg ine 5 mg zine 5 mg [facility] tablet TAKE tablet TAKE tablet ty 1 TABLET BY 1 TABLET BY TAKE 1 [facility] MOUTH MOUTH TABLET BY l EVERYDAY AT EVERYDAY AT MOUTH Clinics BEDTIME BEDTIME EVERYDAY AT BEDTIME montelukast montelukast No montelukas [place] 10 mg 10 mg t 10 mg [facility] tablet TAKE tablet TAKE tablet ty 1 TABLET BY 1 TABLET BY TAKE 1 [facility] MOUTH EVERY MOUTH EVERY TABLET BY l DAY DAY MOUTH Clinics EVERY DAY potassium potassium No potassium [place] citrate ER citrate ER citrate ER [facility] 15 mEq 15 mEq 15 mEq ty (1,620 mg) (1,620 mg) (1,620 mg) [facility]osp[facility] tablet,exte tablet,exte tablet,ext l nded nded ended Clinics release release release TAKE 1 TAKE 1 TAKE 1 TABLET BY TABLET BY TABLET BY MOUTH TWICE MOUTH TWICE MOUTH A DAY WITH A DAY WITH TWICE A MEALS MEALS DAY WITH MEALS progesteron progesteron No progestero [place] [facility] ne [facility] micronized micronized micronized ty 200 mg 200 mg 200 mg [facility] capsule capsule capsule l TAKE 1 TAKE 1 TAKE 1 Clinics CAPSULE BY CAPSULE BY CAPSULE BY MOUTH EVERY MOUTH EVERY MOUTH DAY DAY EVERY DAY rosuvastati rosuvastati No rosuvastat [place] n 20 mg n 20 mg in 20 mg [facility] ni tablet TAKE tablet TAKE tablet ty 1 TABLET BY 1 TABLET BY TAKE 1 [facility] MOUTH EVERY MOUTH EVERY TABLET BY l DAY WITH A DAY WITH A MOUTH Cl inics MEAL MEAL EVERY DAY WITH A MEAL testosteron testosteron No 112.5mg testostero [place] e 100 mg e 100 mg ne 100 mg [facility] implant implant implant ty pellet Take pellet Take pellet [facility] 112.5 mg by 112.5 mg by Take 112.5 l implantatio implantatio mg by Clinics n route. n route. implantati on route. escitalopra escitalopra No escitalopr [place] m 10 mg m 10 mg am 10 mg [facility] ni tablet TAKE tablet TAKE tablet ty 1 TABLET BY 1 TABLET BY TAKE 1 [facility] MOUTH EVERY MOUTH EVERY TABLET BY l DAY FOR 30 DAY FOR 30 MOUTH Cl inics DAYS DAYS EVERY DAY FOR 30 DAYS famotidine famotidine No famotidine [place] 20 mg 20 mg 20 mg [facility] tablet TAKE tablet TAKE tablet ty 1 TABLET BY 1 TABLET BY TAKE 1 [facility] MOUTH TWICE MOUTH TWICE TABLET BY l A DAY A DAY MOUTH Clinics BEFORE BEFORE TWICE A MEALS MEALS DAY BEFORE MEALS rosuvastati rosuvastati No rosuvastat [place] n 20 mg n 20 mg in 20 mg [facility] ni tablet TAKE tablet TAKE tablet ty 1 TABLET BY 1 TABLET BY TAKE 1 [facility] MOUTH EVERY MOUTH EVERY TABLET BY l DAY WITH A DAY WITH A MOUTH Cl inics MEAL MEAL EVERY DAY WITH A MEAL Rybelsus 7 [facility] 7 No Rybelsus 7 [place] mg tablet mg tablet mg tablet [facility]i TAKE 1 TAKE 1 TAKE 1 ty TABLET TABLET TABLET [facility] DAILY AT DAILY AT DAILY AT l LEAST 30 LEAST 30 LEAST 30 Cli nics MINUTES MINUTES MINUTES BEFORE BEFORE BEFORE FIRST FOOD, FIRST FOOD, FIRST BEVERAGE OR BEVERAGE OR FOOD, OTHER ORAL OTHER ORAL BEVERAGE MEDICINE MEDICINE OR OTHER ORAL MEDICINE Synjardy XR Synjardy XR No Synjardy [place] 25 mg-1,000 25 mg-1,000 XR 25 [facility] mg tablet, mg tablet, mg-1,000 ty extended extended mg tablet, [facility] release release extended l TAKE 1 TAKE 1 release Clinics TABLET BY TABLET BY TAKE 1 MOUTH EVERY MOUTH EVERY TABLET BY MORNING MORNING MOUTH WITH WITH EVERY BREAKFAST BREAKFAST MORNING WITH BREAKFAST escitalopra escitalopra No escitalopr [place] m 10 mg m 10 mg am 10 mg [facility] tablet TAKE tablet TAKE tablet ty 1 TABLET BY 1 TABLET BY TAKE 1 [facility] MOUTH EVERY MOUTH EVERY TABLET BY l DAY FOR 30 DAY FOR 30 MOUTH Cl inics DAYS DAYS EVERY DAY FOR 30 DAYS estradiol estradiol No 1pellet estradiol [place] 12.5 mg 12.5 mg (s) 12.5 mg [facility] i implant implant implant ty pellet Take pellet Take pellet [facility] 1 pellet by 1 pellet by Take 1 l implantatio implantatio pellet by Clinics n route. n route. implantati on route. famotidine famotidine No famotidine [place] 20 mg 20 mg 20 mg [facility] tablet TAKE tablet TAKE tablet ty 1 TABLET BY 1 TABLET BY TAKE 1 [facility] MOUTH TWICE MOUTH TWICE TABLET BY l A DAY A DAY MOUTH Clinics BEFORE BEFORE TWICE A MEALS MEALS DAY BEFORE MEALS progesteron progesteron No 1capsul Q1D progestero [place] e e e(s) ne [facility]i micronized micronized micronized ty 200 mg 200 mg 200 mg [facility] capsule capsule capsule l Take 1 Take 1 Take 1 Clinics capsule capsule capsule every day every day every day by oral by oral by oral route for route for route for 90 days. 90 days. 90 days. rosuvastati rosuvastati No rosuvastat [place] n 20 mg n 20 mg in 20 mg [facility] ni tablet TAKE tablet TAKE tablet ty 1 TABLET BY 1 TABLET BY TAKE 1 [facility] MOUTH EVERY MOUTH EVERY TABLET BY l DAY WITH A DAY WITH A MOUTH Cl inics MEAL MEAL EVERY DAY WITH A MEAL Rybelsus 7 [facility] 7 No Rybelsus 7 [place] mg tablet mg tablet mg tablet [facility] TAKE 1 TAKE 1 TAKE 1 ty TABLET TABLET TABLET [facility] DAILY AT DAILY AT DAILY AT l LEAST 30 LEAST 30 LEAST 30 Cli nics MINUTES MINUTES MINUTES BEFORE BEFORE BEFORE FIRST FOOD, FIRST FOOD, FIRST BEVERAGE OR BEVERAGE OR FOOD, OTHER ORAL OTHER ORAL BEVERAGE MEDICINE MEDICINE OR OTHER ORAL MEDICINE Synjardy XR Synjardy XR No Synjardy [place] 25 mg-1,000 25 mg-1,000 XR 25 [facility] mg tablet, mg tablet, mg-1,000 ty extended extended mg tablet, [facility] release release extended l TAKE 1 TAKE 1 release Clinics TABLET BY TABLET BY TAKE 1 MOUTH EVERY MOUTH EVERY TABLET BY MORNING MORNING MOUTH WITH WITH EVERY BREAKFAST BREAKFAST MORNING WITH BREAKFAST testosteron testosteron No 112.5mg testostero [place] e 100 mg e 100 mg ne 100 mg [facility] implant implant implant ty pellet Take pellet Take pellet [facility] 112.5 mg by 112.5 mg by Take 112.5 l implantatio implantatio mg by Clinics n route. n route. implantati on route. azelastine azelastine No azelastine [place] 205.5 mcg 205.5 mcg 205.5 mcg [facility] (0.15 %) (0.15 %) (0.15 %) ty nasal spray nasal spray nasal [facility] USE 1 SPRAY USE 1 SPRAY spray USE l IN EACH IN EACH 1 SPRAY IN Cli nics NOSTRIL 2 NOSTRIL 2 EACH TIMES A DAY TIMES A DAY NOSTRIL 2 FOR FOR TIMES A ALLRGIES ALLRGIES DAY FOR ALLRGIES escitalopra escitalopra No escitalopr [place] m 10 mg m 10 mg am 10 mg [facility] ni tablet TAKE tablet TAKE tablet ty 1 TABLET BY 1 TABLET BY TAKE 1 [facility] MOUTH EVERY MOUTH EVERY TABLET BY l DAY FOR 90 DAY FOR 90 MOUTH Cl inics DAYS DAYS EVERY DAY FOR 90 DAYS estradiol estradiol No 1pellet estradiol [place] 12.5 mg 12.5 mg (s) 12.5 mg [facility] i implant implant implant ty pellet Take pellet Take pellet [facility] 1 pellet by 1 pellet by Take 1 l implantatio implantatio pellet by Clinics n route. n route. implantati on route. famotidine famotidine No famotidine [place] 20 mg 20 mg 20 mg [facility] tablet TAKE tablet TAKE tablet ty 1 TABLET BY 1 TABLET BY TAKE 1 [facility] MOUTH TWICE MOUTH TWICE TABLET BY l A DAY A DAY MOUTH Clinics BEFORE BEFORE TWICE A MEALS MEALS DAY BEFORE MEALS levocetiriz levocetiriz No levocetiri [place] ine 5 mg ine 5 mg zine 5 mg [facility] tablet TAKE tablet TAKE tablet ty 1 TABLET BY 1 TABLET BY TAKE 1 [facility] MOUTH MOUTH TABLET BY l EVERYDAY AT EVERYDAY AT MOUTH Clinics BEDTIME BEDTIME EVERYDAY AT BEDTIME montelukast montelukast No montelukas [place] 10 mg 10 mg t 10 mg [facility] tablet TAKE tablet TAKE tablet ty 1 TABLET BY 1 TABLET BY TAKE 1 [facility] MOUTH EVERY MOUTH EVERY TABLET BY l DAY DAY MOUTH Clinics EVERY DAY phenazopyri phenazopyri No phenazopyr [place] dine 200 mg dine 200 mg idine 200 [facility] tablet TAKE tablet TAKE mg tablet ty 1 TABLET BY 1 TABLET BY TAKE 1 [facility] MOUTH EVERY MOUTH EVERY TABLET BY l 8 HOURS 8 HOURS MOUTH Cl inics NEEDED FOR NEEDED FOR EVERY 8 URINARY URINARY HOURS PROBLEMS PROBLEMS NEEDED FOR URINARY PROBLEMS progesteron progesteron No progestero [place] e e ne [facility] micronized micronized micronized ty 200 mg 200 mg 200 mg [facility] capsule capsule capsule l TAKE 1 TAKE 1 TAKE 1 Clinics CAPSULE BY CAPSULE BY CAPSULE BY MOUTH EVERY MOUTH EVERY MOUTH DAY FOR 90 DAY FOR 90 EVERY DAY DAYS DAYS FOR 90 DAYS rosuvastati rosuvastati No rosuvastat [place] n 20 mg n 20 mg in 20 mg [facility] ni tablet TAKE tablet TAKE tablet ty 1 TABLET BY 1 TABLET BY TAKE 1 [facility] MOUTH EVERY MOUTH EVERY TABLET BY l DAY WITH A DAY WITH A MOUTH Cl inics MEAL MEAL EVERY DAY WITH A MEAL Rybelsus 7 [facility] 7 No Rybelsus 7 [place] mg tablet mg tablet mg tablet Communi TAKE 1 TAKE 1 TAKE 1 ty TABLET TABLET TABLET Hospita DAILY AT DAILY AT DAILY AT l LEAST 30 LEAST 30 LEAST 30 Cli nics MINUTES MINUTES MINUTES BEFORE BEFORE BEFORE FIRST FOOD, FIRST FOOD, FIRST BEVERAGE OR BEVERAGE OR FOOD, OTHER ORAL OTHER ORAL BEVERAGE MEDICINE MEDICINE OR OTHER ORAL MEDICINE sulfamethox sulfamethox No sulfametho [place] azole 800 azole 800 xazole 800 Communi mg-trimetho mg-trimetho mg-trimeth ty prim 160 mg prim 160 mg oprim 160 Hospita tablet TAKE tablet TAKE mg tablet l 1 TABLET BY 1 TABLET BY TAKE 1 [facility] MOUTH EVERY MOUTH EVERY TABLET BY 12 HOURS 12 HOURS MOUTH FOR 7 DAYS FOR 7 DAYS EVERY 12 HOURS FOR 7 DAYS Synjardy XR Synjardy XR No Synjardy [place] 25 mg-1,000 25 mg-1,000 XR 25 Communi mg tablet, mg tablet, mg-1,000 ty extended extended mg tablet, H ospita release release extended l TAKE 1 TAKE 1 release Clinics TABLET BY TABLET BY TAKE 1 MOUTH EVERY MOUTH EVERY TABLET BY MORNING MORNING MOUTH WITH WITH EVERY BREAKFAST BREAKFAST MORNING WITH BREAKFAST testosteron testosteron No 112.5mg testostero [place] e 100 mg e 100 mg ne 100 mg Co mmuni implant implant implant ty pellet Take pellet Take pellet Hospita 112.5 mg by 112.5 mg by Take 112.5 l implantatio implantatio mg by Clinics n route. n route. implantati on route. Immunizations Ordered Filled Immunization Date Status Comments [facility] e Immunization Name Name SARS-COV-2 COVID-19 2022-05-02 Completed Unive rsity of VACCINE 12 YRS+, 00:00:00 [facility] dical BIVALENT 0.5ML, IM, Branc h (MODERNA BOOSTER) FLUCELVAX QUAD PF 2021-12-[address] 00:00:00 [facility] FLUCELVAX QUAD PF 2021-12-[address] 00:00:00 Hospital FLUCELVAX QUAD PF 2021-12-[address] 00:[facility]:00 Hospital SARS-COV-2 COVID-19 2021-03-22 Completed Unive rsity of MODERNA BOOSTER 00:00:00 [place] [facility] VACCINE [facility] SARS-COV-2 COVID-19 2021-03-22 Completed Unive rsity of MODERNA 0.25ML 00:00:00 [place] [facility] are[facility] BOOSTER VACCINE Branch SARS-COV-2 COVID-19 2021-03-22 Completed Unive rsity of MODERNA 0.25ML 00:00:00 [place] [facility] are[facility] BOOSTER VACCINE Branch SARS-COV-2 COVID-19 2020-07-25 Completed Unive rsity of MODERNA VACCINE 00:00:00 [place] [facility] SARS-COV-2 COVID-19 2020-07-25 Completed Unive rsity of MODERNA 12+ YRS 00:00:00 [place] [facility] VACCINE [facility] SARS-COV-2 COVID-19 2020-07-25 Completed Unive rsity of MODERNA 12+ YRS 00:00:00 [place] [facility] VACCINE [facility] SARS-COV-2 COVID-19 2020-06-27 Completed Unive rsity of MODERNA 12+ YRS 00:00:00 [place] [facility] VACCINE [facility] SARS-COV-2 COVID-19 2020-06-27 Completed Unive rsity of MODERNA 12+ YRS 00:00:00 [place] [facility] VACCINE [facility] SARS-COV-2 COVID-19 2020-06-27 Completed Unive rsity of MODERNA VACCINE 00:00:00 [place] [facility] Vital Signs Vital Name Observation Time Observation Value Comments Source BP Diastolic 2022-09-19 00:00:00 68 mm[Hg] [facility] s Height 2022-09-19 00:00:00 59 [in_i] [facility] s BMI (Body Mass 2022-09-19 00:00:00 27.7 kg/m2 [facility] s BP Systolic 2022-09-19 00:00:00 117 mm[Hg] [facility] s Body Weight 2022-09-19 00:00:00 2192 [oz_av] [facility] s BP Diastolic 2022-08-08 00:00:00 89 mm[Hg] [facility] s Height 2022-08-08 00:00:00 59 [in_i] [facility] s BMI (Body Mass 2022-08-08 00:00:00 26.7 kg/m2 [facility]) [facility] s BP Systolic 2022-08-08 00:00:00 126 mm[Hg] [facility] s Body Weight 2022-08-08 00:00:00 2112 [oz_av] [facility] s BP Diastolic 2021-10-11 00:00:00 80 mm[Hg] [facility] s Height 2021-10-11 00:00:00 59 [in_i] [facility] s BMI (Body Mass 2021-10-11 00:00:00 28.9 kg/m2 [facility]) [facility] s BP Systolic 2021-10-11 00:00:00 120 mm[Hg] [facility] s Body Weight 2021-10-11 00:00:00 2288 [oz_av] [facility] s BP Diastolic 2021-09-27 00:00:00 77 mm[Hg] [facility] s Height 2021-09-27 00:00:00 59 [in_i] [facility] s BMI (Body Mass 2021-09-27 00:00:00 28.3 kg/m2 [facility]) [facility] s BP Systolic 2021-09-27 00:00:00 118 mm[Hg] [facility] s Body Weight 2021-09-27 00:00:00 2239 [oz_av] [facility] s BP Diastolic 2021-09-13 00:00:00 77 mm[Hg] [facility] s Height 2021-09-13 00:00:00 59 [in_i] [facility] s BMI (Body Mass 2021-09-13 00:00:00 29.4 kg/m2 [facility]) [facility] s BP Systolic 2021-09-13 00:00:00 122 mm[Hg] [facility] s Body Weight 2021-09-13 00:00:00 2328 [oz_av] [facility] s BP Diastolic 2021-09-06 00:00:00 89 mm[Hg] [facility] s Height 2021-09-06 00:00:00 59 [in_i] [facility] s BMI (Body Mass 2021-09-06 00:00:00 29 kg/m2 [facility]) [facility] s BP Systolic 2021-09-06 00:00:00 134 mm[Hg] [facility] Body Weight 2021-09-06 00:00:00 2298 [oz_av] [facility] s BP Diastolic 2021-07-17 00:00:00 86 mm[Hg] [facility] s Height 2021-07-17 00:00:00 59 [in_i] [facility] s BMI (Body Mass 2021-07-17 00:00:00 27.7 kg/m2 [facility]) [facility] s BP Systolic 2021-07-17 00:00:00 140 mm[Hg] [facility] s Body Weight 2021-07-17 00:00:00 2192 [oz_av] [facility] s Systolic blood 2022-09-01 20:45:00 123 mm[Hg] [facility] pressure Diastolic blood 2022-09-01 20:45:00 78 mm[Hg] [facility] pressure Heart rate 2022-09-01 20:45:00 75 /min [facility] Body height 2022-09-01 20:45:00 149.9 cm [facility] Body weight 2022-09-01 20:45:00 62.143 kg [facility] BMI 2022-09-01 20:45:00 27.67 kg/m2 [facility] Body temperature 2021-12-31 17:14:05 36.61 [facility] Respiratory rate 2021-12-31 17:14:05 18 /min [facility] Oxygen saturation in 2021-12-31 17:14:05 99 /min [facility] Arterial blood by Pulse oximetry Procedures Procedure Date / Time Performing Clinician Source Performed US RETROPERITONEAL 2022-09-01 21:26:29 Hever Tavera [facility] POC SPECIFIC GRAVITY, 2022-09-01 20:49:43 Hever Tavera [facility] URINE, QUALITATIVE, DIPSTICK SARS-COV-2 COVID-19 2022-05-02 22:57:05 [facility]ENT [place] [facility] 0.5ML, IM (MODERNA BOOSTER) ASSIGNMENT OF BENEFITS 2022-05-02 22:29:29 [facility] POC GLUCOSE 2021-12-31 17:25:00 Ashely Martinez H [facility]spital POC GLUCOSE 2021-12-31 13:35:00 Ashely Martinez [facility] ospital ZZCOVID-19 ANTI-SPIKE IGG 2021-12-31 09:14:00 Hever Bone [facility] ANTIBODY TITER Patrice CBC WITH PLATELET AND 2021-12-31 09:14:00 [facility] DIFFERENTIAL [place] BASIC METABOLIC PANEL 2021-12-31 09:14:00 [facility] [place] MAGNESIUM LEVEL 2021-12-31 09:14:00 [facility] [place] PHOSPHORUS LEVEL 2021-12-31 09:14:00 [facility] ZZCOVID-19 SEROLOGY 2021-12-31 09:14:00 [facility] [place] ESTIMATED GFR 2021-12-31 09:14:00 [facility] POC GLUCOSE 2021-12-31 01:54:00 [facility] POC GLUCOSE 2021-12-30 23:13:00 [facility] POC GLUCOSE 2021-12-30 22:07:00 [facility] ANESTHESIA INTUBATION 2021-12-30 20:14:00 Jaleel Gordon [facility] DILATION, STRICTURE, 2021-12-30 20:06:00 [facility] URETHRA, USING URETHRAL SOUND ESWL WITH CYSTO WITH 2021-12-30 20:06:00 [facility] INSERTION OF STENT POC GLUCOSE 2021-12-30 18:05:00 Ashely Martinez H [facility]spital POC GLUCOSE 2021-12-30 13:51:00 [facility] HEMOGLOBIN A1C 2021-12-30 10:19:00 [facility] [place] LIPID PANEL 2021-12-30 10:19:00 [facility] [place] CBC WITH PLATELET AND 2021-12-30 10:19:00 [facility] DIFFERENTIAL [place] BASIC METABOLIC PANEL 2021-12-30 10:19:00 [facility] [place] PHOSPHORUS LEVEL 2021-12-30 10:19:00 [facility] [place] MAGNESIUM LEVEL 2021-12-30 10:19:00 [facility] [place] ESTIMATED GFR 2021-12-30 10:19:00 Ashely Martinezist H [facility]spital POC GLUCOSE 2021-12-30 09:52:00 [facility] POC GLUCOSE 2021-12-30 03:15:00 [facility] POC GLUCOSE 2021-12-30 02:15:[address] RENAL STONE PROTOCOL 2021-12-30 00:39:59 [facility] ECG PRE/POST OP 2021-12-29 23:19:50 [facility] POC GLUCOSE 2021-12-29 23:08:00 Ashely Martinez [facility] ospital PROTHROMBIN TIME WITH INR 2021-12-29 21:20:[address] [facility] [facility] PARTIAL THROMBOPLASTIN 2021-12-29 21:20:00 [facility] [facility] TIME (PTT) POC GLUCOSE 2021-12-29 17:39:00 Ashely Martinez [facility] ospital POC GLUCOSE 2021-12-29 15:37[facility]00 [facility] COVID-19 QUALITATIVE 2021-12-29 13:49:00 [facility] RT-PCR URINE CULTURE 2021-12-29 12:38:00 [place], [facility] spital XR ABDOMEN 1 VW PORTABLE 2021-12-29 12:31:00 [facility] URINALYSIS SCREEN AND 2021-12-29 11:32:00 [facility] MICROSCOPY, WITH REFLEX TO CULTURE HCG QUALITATIVE, URINE 2021-12-29 11:32:00 [facility] SCREEN CBC WITH PLATELET AND 2021-12-29 11:31:00 [facility] DIFFERENTIAL PROTHROMBIN TIME WITH INR 2021-12-29 11:31:00 [facility] PARTIAL THROMBOPLASTIN 2021-12-29 11:31:00 [facility] TIME (PTT) BASIC METABOLIC PANEL 2021-12-29 11:31:00 [facility] ESTIMATED GFR 2021-12-29 11:31:00 [facility] spital SARS-COV-2 COVID-19 2021-03-22 22:18:10 Doctor Unassigned, [facility] VACCINE BOOSTER,0.25ML,IM [place] [facility] (MODERNA) Plan of Care Planned Activity Planned Date Details Comments Source Future Scheduled 2022-10-23 Screening for [facility] Test 21:44:24 malignant neoplasm of colon (procedure) [code = 476591015] Future Scheduled 2022-10-23 Screening for [facility] Test 21:44:24 malignant neoplasm of colon (procedure) [code = 978130110] Future Scheduled 2022-10-23 Screening for [facility] Test 21:44:24 malignant neoplasm of colon (procedure) [code = 595108017] Future Scheduled 2022-10-23 Pneumococcal Vaccine: [facility] Test 21:44:24 Pediatrics (0 to 5 Years) and At-Risk Patients (6 to 64 Years) (1 - PCV) [code = Pneumococcal Vaccine: Pediatrics (0 to 5 Years) and At-Risk Patients (6 to 64 Years) (1 - PCV)] Future Scheduled 2022-10-23 DIABETES: RETINAL EYE [facility] Test 21:44:24 EXAM [code = DIABETES: RETINAL EYE EXAM] Future Scheduled 2022-10-23 DIABETIC FOOT EXAM [facility] Test 21:44:24 [code = DIABETIC FOOT EXAM] Future Scheduled 2022-10-23 URINE MICROALBUMIN [facility] Test 21:44:24 [code = URINE MICROALBUMIN] Future Scheduled 2022-10-23 Hepatitis C screening [facility] Test 21:44:24 (procedure) [code = 023066629] Future Scheduled 2022-10-23 Screening for [facility] Test 21:44:24 malignant neoplasm of cervix (procedure) [code = 531397078] Future Scheduled 2022-10-23 BREAST CANCER [facility] Test 21:44:24 SCREENING [code = BREAST CANCER SCREENING] Future Scheduled 2022-10-23 Screening for [facility] Test 21:44:24 malignant neoplasm of colon (procedure) [code = 820492404] Future Scheduled 2022-10-23 Screening for [facility] Test 21:44:24 malignant neoplasm of colon (procedure) [code = 213648186] Future Scheduled 2022-10-23 COVID-19 VACCINE (4 - [facility] Test 21:44:24 Moderna series) [code = COVID-19 VACCINE (4 - Moderna series)] Future Scheduled 2022-10-23 INFLUENZA VACCINE Method [facility] Test 21:44:24 [code = INFLUENZA VACCINE] Future Scheduled 2022-10-06 Screening for [facility] Test 20:58:45 malignant neoplasm of colon (procedure) [code = 113348404] Future Scheduled 2022-10-06 [facility] Test 20:58:45 malignant neoplasm of colon (procedure) [code = 293417078] Future Scheduled 2022-10-06 [facility] Test 20:58:45 malignant neoplasm of colon (procedure) [code = 314169455] Future Scheduled 2022-10-06 Pneumococcal Vaccine: [facility] Test 20:58:45 Pediatrics (0 to 5 Years) and At-Risk Patients (6 to 64 Years) (1 - PCV) [code = Pneumococcal Vaccine: Pediatrics (0 to 5 Years) and At-Risk Patients (6 to 64 Years) (1 - PCV)] Future Scheduled 2022-10-06 DIABETES: RETINAL EYE [facility] Test 20:58:45 EXAM [code = DIABETES: RETINAL EYE EXAM] Future Scheduled 2022-10-06 DIABETIC FOOT EXAM [facility] Test 20:58:45 [code = DIABETIC FOOT EXAM] Future Scheduled 2022-10-06 URINE MICROALBUMIN [facility] Test 20:58:45 [code = URINE MICROALBUMIN] Future Scheduled 2022-10-06 Hepatitis C screening [facility] Test 20:58:45 (procedure) [code = 112465736] Future Scheduled 2022-10-06 [facility] Test 20:58:45 malignant neoplasm of cervix (procedure) [code = 521346906] Future Scheduled 2022-10-06 BREAST CANCER [facility] Test 20:58:45 SCREENING [code = BREAST CANCER SCREENING] Future Scheduled 2022-10-06 [facility] Test 20:58:45 malignant neoplasm of colon (procedure) [code = 057292334] Future Scheduled 2022-10-06 [facility] Test 20:58:45 malignant neoplasm of colon (procedure) [code = 783542791] Future Scheduled 2022-10-06 COVID-19 VACCINE (4 - [facility] Test 20:58:45 Moderna series) [code = COVID-19 VACCINE (4 - Moderna series)] Future Scheduled 2022-10-06 INFLUENZA VACCINE Method [facility] Hospital Test 20:58:45 [code = INFLUENZA VACCINE] Future Scheduled 2022-10-06 [facility] Test 20:58:45 malignant neoplasm of colon (procedure) [code = 439727204] Future Scheduled 2022-10-06 Scre[facility] Test 20:58:45 malignant neoplasm of colon (procedure) [code = 374424849] Future Scheduled 2022-10-06 Scre[facility] Test 20:58:45 malignant neoplasm of colon (procedure) [code = 229748633] Future Scheduled 2022-10-06 Pneumococcal Vaccine: [facility] Test 20:58:45 Pediatrics (0 to 5 Years) and At-Risk Patients (6 to 64 Years) (1 - PCV) [code = Pneumococcal Vaccine: Pediatrics (0 to 5 Years) and At-Risk Patients (6 to 64 Years) (1 - PCV)] Future Scheduled 2022-10-06 DIABETES: RETINAL EYE [facility] Test 20:58:45 EXAM [code = DIABETES: RETINAL EYE EXAM] Future Scheduled 2022-10-06 DIABETIC FOOT EXAM [facility] Test 20:58:45 [code = DIABETIC FOOT EXAM] Future Scheduled 2022-10-06 URINE MICROALBUMIN [facility] Test 20:58:45 [code = URINE MICROALBUMIN] Future Scheduled 2022-10-06 Hepatitis C screening [facility] Test 20:58:45 (procedure) [code = 285292322] Future Scheduled 2022-10-06 [facility] Test 20:58:45 malignant neoplasm of cervix (procedure) [code = 083521538] Future Scheduled 2022-10-06 BREAST CANCER [facility] Test 20:58:45 SCREENING [code = BREAST CANCER SCREENING] Future Scheduled 2022-10-06 Screening for [facility] Test 20:58:45 malignant neoplasm of colon (procedure) [code = 823019366] Future Scheduled 2022-10-06 Screening for [facility] Test 20:58:45 malignant neoplasm of colon (procedure) [code = 318264236] Future Scheduled 2022-10-06 COVID-19 VACCINE (4 - [facility] Test 20:58:45 Moderna series) [code = COVID-19 VACCINE (4 - Moderna series)] Future Scheduled 2022-10-06 INFLUENZA VACCINE Method [facility] Test 20:58:45 [code = INFLUENZA VACCINE] Diagnostic Test 2022-09-19 estradiol, serum [place] [facility] Pending 00:00:00 [code = estradiol, Hospital Clinics serum] Diagnostic Test 2022-09-19 testosterone, total, [facility] in Community Pending 00:00:00 serum [code = Hospital Clini testosterone, total, serum] Diagnostic Test 2022-09-19 FSH [place] Com[facility] nity Pending 00:00:00 (follicle-stimulating Hospit al Clinics hormone), serum [code = FSH (follicle-stimulating hormone), serum] Encounters Start End Encounter Admission Attending Care Care Encounter Source Date/Time Date/Time Type Type Clinicians Facility Department ID 2022-10-13 2022-10-13 Outpatient BOB Lopez JOANA [id number] [facility] 12:00:00 12:00:00 [facility]ph [facility] 2022-10-08 2022-10-08 Outpatient BOB Lopez JOANA [id number] [facility] 12:00:00 12:00:00 Steph 13 [facility] 2022-09-19 2022-09-19 [facility] [place] 00:00:00 00:00:00 [place] [facility] MSN, DEPLOYMENT MANAGER, Hospital - ty EXTENSION SERVICE SPECIALIST-C: [address] [place] [facility], [facility] s [address], [facility] [address], [place], [place] MSN, EXTENSION SERVICE SPECIALIST-C [id number] , Ph. 2022-09-01 2022-09-01 Office Hever Tavera 1.2.840.1 [id number] Methodi 15:15:00 16:33:51 [facility] 23281.1.1 309 s t 3.430.2.7 Hospit a .3.888882 l .8 2022-09-01 2022-09-01 Office Hever Tavera 1.2.840.1 [id number] Methodi 15:15:00 16:33:[address] 07121.1.1 309 s t 3.430.2.7 Hospit a .3.487187 l .8 2022-09-01 2022-09-01 Travel 1.2.840.1 1.2.420.784 [id number] Methodi 00:00:00 00:00:[address] 3.430.2.7 0.2.7.3.698 Ho spita .3.000247 084.8 l .8 2022-09-01 2022-09-01 Travel 1.2.840.1 1.2.775.469 [id number] Methodi 00:00:00 00:00:[address] 3.430.2.7 0.2.7.3.698 Ho spita .3.185558 084.8 l .8 2022-08-08 2022-08-08 [facility] 2022 [place] 00:00:00 00:00:00 0602 Commun i ty Hospita l Clinics 2022-08-08 2022-08-08 [facility] [place] [facility] [place] 21 [place] 00:00:00 00:00:[address] [facility] MSN, DEPLOYMENT MANAGER, Hospital - ty EXTENSION SERVICE SPECIALIST-C: [address] [place] [facility], [facility] [address], [facility] [address], [place], [place] MSN, EXTENSION SERVICE SPECIALIST-C [id number] , Ph. 2022-05-02 2022-05-02 Outpatient Diana BAHENA [facility] [id number] [facility] 16:20:00 17:03:37 QUITA robertson [facility] 2022-05-02 2022-05-02 Nurse Nurse, Kevyn Le [facility] [id number] [facility] 16:20:00 17:03:37 Visit Quita Bahena [facility] [address] 350.1.13 .10 [facility] 4.2.7.2.686 Ariel as PEDRO?BLEA [id number] [address] MEDICAL OFFICE BUILDING 2022-05-02 2022-05-02 Orders Doctor JAY 1.2.840.114 [id number] Univers 00:00:00 00:00:00 Only Unassigned, AMRIT 350.1.13.10 ity of [place] [facility] 4.2.7.2.686 Ariel as [id number] [place] [address] Branch 2022-02-17 2022-02-17 Outpatient SAVANNAH_Rommel [facility] [id number] [place] 00:00:00 00:00:00 0421 Commun i ty Hospita Clinics 2021-12-29 2021-12-31 Emergency Naomi Sotoassir 1.2.840.1 [id number] Methodi 06:02:00 15:05:00 Bravo Ashely Torres [address]692.1.[address] 3.430.2.7 Hospit a .3.434264 l .8 2021-12-29 2021-12-31 Emergency Srini Soto 1.2.840.1 [id number] Methodi 06:02:00 15:05:00 Ashely Martinez [address]54.1.[address] 3.430.2.7 Hospit a .3.533683 l .8 2021-12-30 2021-12-30 Anesthesia Jaleel Gordon 1.2.840.1 [id number] Methodi 14:58:00 16:42:00 Event Vanda Guo 97932.1.[address] 3.430.2.7 Hospit a .3.019960 l .8 2021-12-30 2021-12-30 Anesthesia Jaleel Gordon 1.2.840.1 [id number] Methodi 14:58:00 16:42:00 Event Vanda Guo 37527.1.[address] 3.430.2.7 Hospit a .3.403123 l .8 2021-12-30 2021-12-30 Surgery Hever Tavera 1.2.840.1 [id number] Methodi 14:10:00 15:30:00 Desmond 25359.1.1 766 s t 3.430.2.7 Hospit a .3.767776 l .8 2021-12-30 2021-12-30 Surgery Ho, Hever 1.2.840.1 [id number] Methodi 14:10:00 15:30:00 Desmond 48519.1.1 766 s t 3.430.2.7 Hospit a .3.761387 l .8 2021-10-11 2021-10-11 Outpatient SISSON_C [facility] 2021 [place] 09:29:00 09:29:00 0624 Commun i ty Hospita l [facility] 2021-10-11 2021-10-11 [facility] [place] [facility] [place] 00:00:00 00:00:00 [place] [facility] Comm uni MSN, DEPLOYMENT MANAGER, Hospital - ty EXTENSION SERVICE SPECIALIST-C: [address] [place] [facility], [facility] s [address], [facility] [address], [place] MSN, EXTENSION SERVICE SPECIALIST-C [id number] , Ph. 2021-10-11 2021-10-11 [facility] [id number] 00:00:00 00:00:00 [facility] [id number] 2021-10-04 2021-10-04 Outpatient EL Referred, [facility] [id number] [facility] 12:00:00 12:00:00 Self [facility] 2021-09-27 2021-09-27 Outpatient SISSON_C [facility] 2021 [place] 12:03:00 12:03:00 0610 Commun i ty Hospita l [facility] 2021-09-27 2021-09-27 [facility] [place] [facility] [place] 00:00:00 00:00:00 [place] [facility] uni MSN, DEPLOYMENT MANAGER, Hospital - ty EXTENSION SERVICE SPECIALIST-C: [address] [place] [facility], [facility] [address], [facility] [address], [place] MSN, EXTENSION SERVICE SPECIALIST-C [phone] , Ph. 2021-09-27 2021-09-27 Outpatient [place] [facility] [id number] 00:00:00 00:00:00 Claudia [id number] 2021-09-13 2021-09-13 Outpatient SISSHOLA_C [facility] 2021 [place] 05:21:00 05:21:00 0527 Commun i ty Hospita l Clinics 2021-09-13 2021-09-13 [facility] [place] [facility] [place] 00:00:00 00:00:00 [place], [facility] MSN, DEPLOYMENT MANAGER, Hospital - ty EXTENSION SERVICE SPECIALIST-C: [address] [place] [facility], Clinic s [address], [address], [place] MSN, EXTENSION SERVICE SPECIALIST-C [id number] , Ph. 2021-09-13 2021-09-13 Outpatient [place] [facility] [id number] 00:00:00 00:00:00 [place] [id number] 2021-09-06 2021-09-06 Outpatient SAVANNAH_C [facility] 2021 [place] 12:21:00 12:21:00 0520 Commun i ty [facility] 2021-09-06 2021-09-06 [facility] [place] 00:00:00 [place] [facility] MSN, DEPLOYMENT MANAGER, Hospital - ty EXTENSION SERVICE SPECIALIST-C: [address] [place] [facility], Clinic s [address], [place] [address], [place] MSN, EXTENSION SERVICE SPECIALIST-C [id number] , Ph. 2021-09-06 2021-09-06 Outpatient [place] [facility] [id number] 00:00:00 00:00:00 [place] [id number] 2021-08-30 2021-08-30 Outpatient SAVANNAH_Rommel [facility] 2021 [place] 05:25:00 05:25:00 0513 Commun i ty Hosp[facility] Clinics 2021-08-30 2021-08-30 Outpatient [place] [facility] [id number] 00:00:00 00:00:00 [place] [id number] 2021-08-30 2021-08-30 [facility] [place] 00:00:00 00:00:00 [place] [facility] MSN, DEPLOYMENT MANAGER, Hospital - ty EXTENSION SERVICE SPECIALIST-C: [address] [place] [facility] Clinic [facility] [address], [place] [address], [place]N, EXTENSION SERVICE SPECIALIST-C [phone] , Ph. 2021-07-19 2021-07-19 Outpatient PABLITO [facility] 2021 [place] 05:24:00 05:24:00 0401 Commun i ty Hospita [facility] 2021-07-19 2021-07-19 Outpatient [place] [facility] [id number] 00:00:00 00:00:00 Claud[place] [id number] 2021-07-19 2021-07-19 [facility] [place] 00:00:00 00:00:[address] [place] [facility] MSN, DEPLOYMENT MANAGER, Hospital - ty EXTENSION SERVICE SPECIALIST-C: [address] [place] [address] [facility], Clinic s [address], [place] [address], [place]N, [facility] [address] , Ph. 2021-07-17 2021-07-17 Outpatient PABLITO [facility] 2021 [place] 11:37:00 11:37:00 0330 Commun i ty Hospita [facility] 2021-07-17 2021-07-17 [facility] [place] 00:00:00 00:00:00 [place], 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 2021-07-17 2021-07-17 Outpatient [place] [facility] [id number] 00:00:00 00:00:00 [facility] [id number] 2021-07-12 2021-07-12 [facility] [id number] [place] 02:59:00 02:59:00 0325 Commun i ty [facility] 2021-03-22 2021-03-22 Imm/Inj Vaccine, Ang Db Cbc [facility] [id number]. [id number] Univers 16:02:47 16:12:47 [id number] [facility] [id number] Ariel as PEDRO?BLEA [id number] [address] MEDICAL OFFICE BUILDING 2021-03-22 2021-03-22 Outpatient Diana COLEY [facility] [id number] Univers 16:10:00 16:10:00 [facility] 2020-10-24 2020-10-24 Outpatient LUPE Quach [facility] [id number] [facility] 12:00:00 12:00:00 [facility] 2020-07-25 2020-07-25 Outpatient Diana MÉNDEZ [facility] [id number] Univers 12:20:00 12:11:55 DASH [facility] 2020-06-27 2020-06-27 Outpatient Diana MÉNDEZ [facility] [id number] Univers 12:20:00 12:01:05 DASH [facility] Results Test Description Test Time Test Comments Results Result Comments Source POC specific gravity, urine, qualitative, dipstick 2022-08-18 5 20:49:43 Test Item Value Reference Range Interpretation Comme nts Specific gravity urine, POC (test 1.015 1.005-1.030 code = 6026357) Glucose urine, POC (test code = Trace Negative A 500 mg/dL 9630661) Bilirubin urine, POC (test code = Negative Negative 8071093) Ketones urine, POC (test code = Negative Negative 8481752) Blood urine, POC (test code = Negative Negative 7001520) pH urine, POC (test code = 6.5 See_Comment [Automated message] The 3421185) system which ge nerated this result transmit swati reference range: 5.0, 5.5 , 6.0, 6.5, 7.0, 7.5, 8.0, 8.5. The reference range was not used to interpret th is result as normal/abnormal . Protein urine, POC (test code = Negative Negative 1472226) Urobilinogen urine, POC (test <2.0 <=2.0 code = 5649007) Nitrite urine, POC (test code = Negative Negative 3036573) Leukocyte esterase urine, POC Negative Negative (test code = 8193592) Lab Interpretation (test code = Abnormal 65001-0) [facility] specific gravity, urine, qualitative, [id number] 20:49:43 Test Item Value Reference Range Interpretation Comments Specific gravity urine, 1.015 1.005-1.030 POC (test code = 3545675) Glucose urine, POC (test Trace Negative A 500 mg/dL code = 9949544) Bilirubin urine, POC Negative Negative (test code = 2555067) Ketones urine, POC (test Negative Negative code = 1432771) Blood urine, POC (test Negative Negative code = 8989481) pH urine, POC (test code 6.5 See_Comment [A utomated message] = 0922064) The system [employer] generated this result transmitted ref erence range: 5.0, 5.5 , 6.0, 6.5, 7.0, 7.5, 8.0, 8.5. The refere nce range was not u sed to interpret this result as normal/abnor mal. Protein urine, POC (test Negative Negative code = 4480724) Urobilinogen urine, POC <2.0 <=2.0 (test code = 9239235) Nitrite urine, POC (test Negative Negative code = 3790646) Leukocyte esterase Negative Negative urine, POC (test code = 8183869) Lab Interpretation (test Abnormal code = 16964-5) [facility] specific gravity, urine, qualitative, [id number] 20:49:43 Test Item Value Reference Range Interpretation Comments Specific gravity urine, 1.015 1.005-1.030 POC (test code = 9002006) Glucose urine, POC (test Trace Negative A 500 mg/dL code = 0780826) Bilirubin urine, POC Negative Negative (test code = 1243283) Ketones urine, POC (test Negative Negative code = 9692321) Blood urine, POC (test Negative Negative code = 0736032) pH urine, POC (test code 6.5 See_Comment [A utomated message] = 4134170) The system [employer] generated this result transmitted ref erence range: 5.0, 5.5 , 6.0, 6.5, 7.0, 7.5, 8.0, 8.5. The refere nce range was not u sed to interpret this result as normal/abnor mal. Protein urine, POC (test Negative Negative code = 1057524) Urobilinogen urine, POC <2.0 <=2.0 (test code = 9059913) Nitrite urine, POC (test Negative Negative code = 6865684) Leukocyte esterase Negative Negative urine, POC (test code = 5880362) Lab Interpretation (test Abnormal code = 56426-1) [facility] [id number] 17:32:00 Test Item Value Reference Range Interpretation Comments POC glucose (test code = 192 mg/dL 65-99 H Ope rator Name: [id number]) Brice benson ID: [id number] able[facility] Notified academic tutor Interpretation (test Abnormal code = 66404-8) [facility] [id number] 17:32:00 Test Item Value Reference Range Interpretation Comments POC glucose (test code = 192 mg/dL 65-99 H Ope rator Name: [id number]) Brice benson ID: [id number] able: [facility] Notified academic tutor Interpretation (test Abnormal code = 53146-9) [facility] [id number] 17:32:00 Test Item Value Reference Range Interpretation Comments POC glucose (test code = 192 mg/dL 65-99 H Ope rator Name: [id number]) Brice benson ID: [id number] able: [facility] Notified academic tutor Interpretation (test Abnormal code = 70051-9) [facility] [id number] 14:14:00 Test Item Value Reference Range Interpretation Comments Urine culture Mixed demetra Specimen isolate (test <=10-3 col/cc InformationSp ecimen code = 08960-9) Source: [facility] Site: [facility]2022-09-12 14:14:00 Test Item Value Reference Range Interpretation Comments Urine culture Mixed demetra Specimen isolate (test <=10-3 col/cc InformationSp ecimen code = 67200-6) Source: [facility] Site: [facility]2022-09-12 14:14:00 Test Item Value Reference Range Interpretation Comments Urine culture Mixed demetra Specimen isolate (test <=10-3 col/cc InformationSp ecimen code = 28116-6) Source: [facility] Site: [facility] Pre/Post [id number] 01:44:34 Test Item Value Reference Range Interpretation Comments Ventricular rate (test 66 code = 253) Atrial rate (test code = 66 255) MA interval (test code = 170 266) QRSD interval (test code 74 = 260) QT interval (test code = 408 264) QTC interval (test code 427 = 265) P axis 1 (test code = 12 267) QRS axis 1 (test code = 4 268) T wave axis (test code = -3 270) EKG impression (test Normal sinus code = 273) rhythm-Low voltage QRS-Possible Inferior infarct , age undetermined-Abnormal ECG-No previous ECGs available-Electronica lly Signed By Tom Gaxiola MD ([id number]) on 12/29/2021 8:44:32 PM [facility] Pre/Post [id number] 01:44:34 Test Item Value Reference Range Interpretation Comments Ventricular rate (test 66 code = 253) Atrial rate (test code = 66 255) MA interval (test code = 170 266) QRSD interval (test code 74 = 260) QT interval (test code = 408 264) QTC interval (test code 427 = 265) P axis 1 (test code = 12 267) QRS axis 1 (test code = 4 268) T wave axis (test code = -3 270) EKG impression (test Normal sinus code = 273) rhythm-Low voltage QRS-Possible Inferior infarct , age undetermined-Abnormal ECG-No previous ECGs available-Electronica lly Signed By Tom Gaxiola MD ([id number]) on 12/29/2021 8:44:32 PM [facility] Pre/Post [id number] 01:44:34 Test Item Value Reference Range Interpretation Comments Ventricular rate (test 66 code = 253) Atrial rate (test code = 66 255) MA interval (test code = 170 266) QRSD interval (test code 74 = 260) QT interval (test code = 408 264) QTC interval (test code 427 = 265) P axis 1 (test code = 12 267) QRS axis 1 (test code = 4 268) T wave axis (test code = -3 270) EKG impression (test Normal sinus code = 273) rhythm-Low voltage QRS-Possible Inferior infarct , age undetermined-Abnormal ECG-No previous ECGs available-Electronica lly Signed By Tom Gaxiola MD ([id number]) on 12/29/2021 8:44:32 [facility] [Presence] in Respiratory specimen by MADDIE with probe [id number] 11:56:42 Test Item Value Reference Range Interpretation Comments SARS-CoV-2 (COVID-19) RNA Not detected [Presence] in Respiratory specimen by MADDIE with probe detection (test code = 69865-5) Whether patient is employed in a Unknown healthcare setting (test code = 26782-8) Whether the patient has symptoms Unknown related to condition of interest (test code = 02834-2) Whether the patient was Unknown hospitalized for condition of interest (test code = 94569-5) Whether the patient was admitted Unknown to intensive care unit (ICU) for condition of interest (test code = 94495-9) Whether patient resides in a Unknown congregate care setting (test code = 74557-0) status (test code = Unknown 48127-9) Date and time of symptom onset Unknown (test code = 74086-5) POPPY AGUAYO WESTSCR MAMM BILATERAL NAMRATA CAD [id number] 11:12:47 Name: Shira : 1975 Sex: F - SCR MAMM BILATERAL NAMRATA CAD DIGITALBILATERAL DIGITAL SCREENING MAMMOGRAM 3D/2D WITH CAD: 10/10/2020LINICAL: Asymptomatic. Digital breast tomosynthesis was performed in addition to routine CC and MLO views. Current mammographic images were evaluated by [employer] CAD (computer-aided detection) software. No prior exams were availablefor comparison. The tissue of both breasts is heterogeneously dense. This may lower the sensitivity of mammography. There are nodular densities bilaterally that most likely represent benign fibroadenomas, cysts, or nodular breast tissue, however this must be confirmed with ultrasound. No suspicious mass, architectural distortion, malignant type calcification, or lymph node abnormality detected. IMPRESSION: INCOMPLETE: ADDITIONAL IMAGING EVALUATION NEEDEDBilateral ultrasound recommended. Jessica trotter/gregory:10/15/2020 11:12:47 Manager Report: Lisa Pruett MM, [facility] Mammographyletter sent: Additional Imaging Mammogram BI-RADS: 0 Incomplete: Additional Imaging Evaluation Needed
[2022-10-23 23:18] LABS: Absolute Lymphocytes (CBC) 2.6 K/uL (0.7-4.9); Hematocrit 42.7 % (36.0-45.0); Lymphocytes % 31.7 % (15.3-44.8); MCV 89.8 fL (80-100); MPV 8.2 fL (7.6-11.3); RBC Red Blood Cell Count 4.76 M/uL (3.86-4.86)
[2022-10-23 23:24] LABS: Albumin 4.5 g/dL (3.4-5.0); Bilirubin Total 0.9 mg/dL (0.2-1.0); Potassium 3.5 mEq/L (3.5-5.1); Protein, Total 8.2 g/dL (6.4-8.2)
[2022-10-23] MEDS ORDERED: PHENAZOPYRIDINE 100MG TAB PO ONE (23:58)
[2022-10-23] MEDS ORDERED: ONDANSETRON 4 MG/2 ML VIAL ONE (23:59)
[2022-10-23] MEDS ORDERED: DICYCLOMINE HCL 10 MG CAP ONE (23:59)
[2022-10-23] MEDS ORDERED: MORPHINE 4 MG/ML SYR ONE (23:59)
[2022-10-23] MEDS ORDERED: NA CHLORIDE 0.9% 1,000 ML ONE (23:59)
[2022-10-24 01:58] LABS: Specific Gravity > 1.030 (1.005-1.030); Urine Bilirubin NEGATIVE (Negative); Urine Blood Negative (Negative); Urine Clarity Clear (Clear); Urine Color Colorless (Yellow); Urine Glucose 4+ (Over) (Negative); Urine Protein NEGATIVE (Negative); Urine Urobilinogen Normal (Normal)
--- NOTE | 2022-10-24 02:02 | EDPHYS ---
Physician Documentation [facility] Name: Jennifer Goodwin Age: 47 yrs Sex: Female : 1975 Arrival Date: 10/23/2022 Time: 21:41 Bed IW10 Private MD: ED Physician Cristhian Carmen HPI: 10/23 21:47 This 47 yrs old Female presents to ER via Unassigned with complaints of sp4 Possible Kidney Stone, Pelvic Pain, Low Back Pain. 10/24 07:33 Patient presents with complaint of several days of left flank pain and left lower sp4 abdominal pain. This was investigated at [facility] with no specific diagnosis assigned to the patient. . TRANSPORTATION ESCORT: 10/23 22:20 LMP N/A - Post-menopause lg3 Historical: - Allergies: 22:20 No Known Allergies; lg3 - Home Meds: 22:20 Synjardy Oral 2 times per day [Active]; Rybelsus 14 mg oral tablet [Active]; lg3 rosuvastatin 20 mg Oral tab 1 tab once daily [Active]; famotidine 20 mg Oral tablet [Active]; montelukast 10 mg oral tablet [Active]; progesterone micronized 200 mg oral capsule [Active]; - PMHx: 22:20 Diabetes - NIDDM; GERD; Kidney stones; Medullary Spone Kidney; lg3 - PSHx: 22:20 Lithotripsy; renal stents; lg3 - Immunization history:: Adult Immunizations up to date, Client reports receiving the 2nd dose of the Covid vaccine. - Social history:: Smoking status: Patient denies any tobacco usage or history of. Patient uses alcohol, occasionally. - Family history:: not pertinent. ROS: 10/24 07:33 Constitutional: Negative for fever, chills, and weight loss, Eyes: Negative for injury, sp4 pain, redness, and discharge, Abdomen/GI: Negative for vomiting, diarrhea, and constipation, positive for abdominal pain, positive for nausea, positive for left flank pain : Negative for injury, bleeding, discharge, and swelling. All other systems are negative. Exam: 07:33 Constitutional: This is a well developed, well nourished patient who is awake, alert, sp4 and in no acute distress. Head/Face: Normocephalic, atraumatic. Eyes: Pupils equal round and reactive to light, extra-ocular motions intact. Lids and lashes normal. Conjunctiva and sclera are not injected. Cornea within normal limits. Periorbital areas with no swelling, redness, or edema. ENT: Nares patent. No nasal discharge, no septal abnormalities noted. Oropharynx with no redness, swelling, or masses, exudates, or evidence of obstruction, uvula midline. Mucous membranes moist. 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 Supple, full range of motion without nuchal rigidity, or vertebral point tenderness. Chest/axilla: Normal chest wall appearance and motion. Nontender with no deformity. No lesions are appreciated. Cardiovascular: Regular rate and rhythm with a normal S1 and S2. No gallops, murmurs, or rubs. Normal PMI, no JVD. No pulse deficits. Respiratory: Lungs have equal breath sounds bilaterally, clear to auscultation and percussion. No rales, rhonchi or wheezes noted. No increased work of breathing, no retractions or nasal flaring. Abdomen/GI: Soft, non-tender, with normal bowel sounds. No distension or tympany. No guarding or rebound. No evidence of tenderness throughout. Back: No spinal tenderness. No costovertebral tenderness. Skin: Warm, dry with normal turgor. Normal color with no rashes, no lesions, and no evidence of cellulitis. MS/ Extremity: Pulses equal, no cyanosis. Neurovascular intact. Full, normal range of motion. Neuro: Awake and alert, GCS 15, oriented to person, place, time, and situation. Cranial nerves II-XII grossly intact. Motor strength 5/5 in all extremities. Sensory grossly intact. Psych: Awake, alert, with orientation to person, place and time. Behavior, mood, and affect are within normal limits Vital Signs: 10/23 22:17 BP 138 / 92; Pulse 83; Resp 17; Temp 98.3; Pulse Ox 100% on R/A; Weight 63.5 kg (R); lg3 Height 4 ft. 11 in. (R); Pain 6/10; 22:30 BP 125 / 68; Pulse 75; Resp 18 S; Pulse Ox 100% on R/A; ha1 23:30 BP 131 / 82; Pulse 72; Resp 16 S; Pulse Ox 100% ; ha1 10/24 00:30 BP 125 / 73; Pulse 69; Resp 18 S; Pulse Ox 100% ; ha1 01:30 BP 128 / 75; Pulse 75; Resp 18 S; Pulse Ox 100% on R/A; ha1 02:25 BP 125 / 71; Pulse 75; Resp 18 S; Pulse Ox 100% on R/A; ha1 10/23 22:17 Body Mass Index 28.28 (63.50 kg, 149.86 cm) lg3 10/23 22:17 Pain Scale: Adult lg3 MDM: 10/23 21:50 Patient medically screened. sp4 10/24 01:40 ED course: TECHNIQUE: Images were obtained in axial, sagittal, and coronal planes. sp4 Intravenous contrast was administered. This exam was performed according to our departmental dose-optimization program which includes use of Automated Exposure Control, adjustment of the mA and/or kV according to patient size and/or use of iterative reconstruction technique. FINDINGS: No abnormality involving the liver, leading, pancreas, or adrenal glands bilaterally. Mildly contracted gallbladder. Punctate nonobstructing calcifications kidneys bilaterally. No hydronephrosis bilaterally. Unremarkable bladder. Appendix within normal limits. No bowel obstruction, perforation, or inflammation. Moderate constipation. Punctate pelvic calcifications thought to be vascular in nature. These findings are unchanged when correlated with the prior study. No abnormality of abdominal aorta or portal vein. No adenopathy or abnormal fluid collections seen. Unremarkable uterus and ovaries bilaterally. No acute osseous abnormality. No abnormality lower lungs bilaterally. IMPRESSION: No acute intra-abdominal abnormality. . 07:33 Differential diagnosis: strain, fracture, sciatica, contusion, UTI. Data reviewed: sp4 vital signs, nurses notes, lab test result(s), CBC, electrolytes, hepatic panel, urinalysis, radiologic studies, CT scan. Consideration of Admission/Observation Escalation of care including admission/observation considered. ED course: Work-up today is unremarkable, patient is stable for discharge home with as needed medications for pain and nausea. 10/23 21:51 Order name: CMP; Complete Time: 01:39 sp4 10/23 21:51 Order name: Lipase; Complete Time: 01:39 sp4 10/23 21:51 Order name: Urinalysis w/ reflexes; Complete Time: 02:01 sp4 10/23 23:04 Order name: CBC with Automated Diff; Complete Time: 01:39 EDMS 10/23 21:51 Order name: CT Abd/Pelvis - IV Contrast Only sp4 10/23 21:51 Order name: IV Saline Lock; Complete Time: 22:57 sp4 10/23 21:51 Order name: Labs collected and sent; Complete Time: 22:57 sp4 Administered Medications: 10/23 23:30 Drug: Dicyclomine PO 20 mg Route: PO; 1 10/24 02:22 Follow up: Response: No adverse reaction 1 10/23 23:30 Drug: Phenazopyridine PO 200 mg Route: PO; ha1 10/24 02:21 Follow up: Response: No adverse reaction 1 10/23 23:32 Drug: Ondansetron IVP 4 mg Route: IVP; Site: right antecubital; ha1 10/24 00:00 Follow up: Response: No adverse reaction; Nausea is decreased 1 10/23 23:35 Drug: NS 0.9% IV 1000 ml Route: IV; Rate: 1 bolus; Site: right antecubital; 1 10/24 02:00 Follow up: Response: No adverse reaction; IV Status: Completed infusion; IV Intake: ha1 1000ml 10/23 23:35 Drug: morphine IVP or IV 4 mg Route: IVP; Infused Over: 4 mins; Site: right antecubital;ha1 10/24 00:05 Follow up: Response: No adverse reaction; Pain is decreased; RASS: Alert and Calm (0) ha1 02:02 Drug: Albuterol Inhalation 2.5 mg Route: Inhalation; ha1 02:21 Follow up: Response: No adverse reaction ha1 02:10 Drug: traMADol PO 100 mg Route: PO; ha1 02:21 Follow up: Response: No adverse reaction; Pain is decreased; RASS: Alert and Calm (0) ha1 02:10 Drug: Promethazine PO 25 mg Route: PO; ha1 02:21 Follow up: Response: No adverse reaction ha1 Disposition Summary: 10/24/22 02:02 Discharge Ordered Location: Home sp4 Problem: new sp4 Symptoms: have improved sp4 Condition: Stable sp4 Diagnosis - Lower abdominal pain, unspecified sp4 - Left flank pain sp4 Followup: sp4 - With: Private Physician - When: 7 - 10 days - Reason: Recheck today's complaints Discharge Instructions: - Discharge Summary Sheet sp4 - Abdominal Pain, Adult, Drce-sl-Zeme sp4 Forms: - [employer]_Portal_Instructions_BRZ.htm sp4 Prescriptions: - Tramadol 50 mg Oral Tablet - take 1 tablet by ORAL route every 8 hours as needed; 20 tablet; Refills: 0, sp4 Product Selection Permitted - promethazine 25 mg Oral Tablet - take 1 tablet by ORAL route every 6 hours As needed; 20 tablet; Refills: 0, sp4 Product Selection Permitted Signatures: [facility] EDSlime Hardwick RN RN lg3 Annalise Nair RN RN ha1 Cristhian Carmen MD MD sp4 Corrections: (The following items were deleted from the chart) 00:59 07 21:51 CBC+H.LAB.DYLANZ ordered. EDMT EDMS
--- NOTE | 2022-10-24 02:02 | ER ---
Nurse's Notes [facility] Name: Jennifer Goodwin Age: 47 yrs Sex: Female : 1975 Arrival Date: 10/23/2022 Time: 21:41 Bed [id number] Private MD: Diagnosis: Lower abdominal pain, unspecified;Left flank pain Presentation: 10/23 22:17 Chief complaint: Patient states: last lower back pain began. seen at urgent lg3 care. scans negative for stone. pain increasing. new onset dizziness and lightheaded with nausea. hx of stones and stents. Coronavirus screen: Client denies travel out of the [place] in the last 14 days. At this time, the client does not indicate any symptoms associated with coronavirus-19. Ebola Screen: No symptoms or risks identified at this time. Initial Sepsis Screen: Does the patient meet any 2 criteria? No. Patient's initial sepsis screen is negative. Does the patient have a suspected source of infection? No. Patient's initial sepsis screen is negative. Risk Assessment: Do you want to hurt yourself or someone else? Patient reports no desire to harm self or others. Onset of symptoms was October 15, 2022. 22:17 Method Of Arrival: Ambulatory lg3 22:17 Acuity: PATTIE 3 lg3 Triage Assessment: 22:20 General: Appears in no apparent distress. uncomfortable, Behavior is calm, cooperative. lg3 Pain: Complains of pain in back and abdomen. EENT: No deficits noted. No signs and/or symptoms were reported regarding the EENT system. Neuro: No deficits noted. Beltran Agitation-Sedation Scale (RASS): 0 - Alert and Calm Level of Consciousness is awake, alert, obeys commands, Oriented to person, place, time, situation. Cardiovascular: No deficits noted. Denies chest pain, shortness of breath, Capillary refill < 3 seconds Clubbing of nail beds is absent JVD is absent Patient's skin is warm and dry. Respiratory: No deficits noted. Airway is patent Respiratory effort is even, unlabored, Respiratory pattern is regular, symmetrical. GI: No deficits noted. Abdomen is round non-distended, Reports lower abdominal pain, bloating, cramping. : Reports burning with urination, urgency, urinary frequency. Derm: No deficits noted. No signs and/or symptoms reported regarding the dermatologic system. Skin is intact, is healthy with good turgor, Skin is dry, Skin is normal, Skin temperature is warm. Musculoskeletal: No deficits noted. Reports pain in back. STATIONARY [employer]: 22:20 LMP N/A - Post-menopause lg3 Historical: - Allergies: 22:20 No Known Allergies; lg3 - Home Meds: 22:20 Synjardy Oral 2 times per day [Active]; Rybelsus 14 mg oral tablet [Active]; lg3 rosuvastatin 20 mg Oral tab 1 tab once daily [Active]; famotidine 20 mg Oral tablet [Active]; montelukast 10 mg oral tablet [Active]; progesterone micronized 200 mg oral capsule [Active]; - PMHx: 22:20 Diabetes - NIDDM; GERD; Kidney stones; Medullary Spone Kidney; lg3 - PSHx: 22:20 Lithotripsy; renal stents; lg3 - Immunization history:: Adult Immunizations up to date, Client reports receiving the 2nd dose of the Covid vaccine. - Social history:: Smoking status: Patient denies any tobacco usage or history of. Patient uses alcohol, occasionally. - Family history:: not pertinent. Screenin:25 [facility] ED Fall Risk Assessment (Adult) History of falling in the last 3 months, ha1 including since admission No falls in past 3 months (0 pts) Confusion or Disorientation No (0 pts) Intoxicated or Sedated No (0 pts) Score/Fall Risk Level 0 - 2 = Low Risk Oriented to surroundings, Maintained a safe environment, Educated pt \T\ family on fall prevention, incl call for assistance when getting out of bed. 10/24 02:28 Abuse screen: Denies threats or abuse. Denies injuries from another. Nutritional ha1 screening: No deficits noted. Tuberculosis screening: No symptoms or risk factors identified. Assessment: 10/23 22:25 General: Appears comfortable, Behavior is calm, cooperative. Pain: Complains of pain in ha1 back Pain does not radiate. Pain currently is 8 out of 10 on a pain scale. Quality of pain is described as throbbing. Neuro: Level of Consciousness is awake, alert, obeys commands, Oriented to person, place, time, situation. Cardiovascular: Patient's skin is warm and dry. Respiratory: Airway is patent Respiratory effort is even, unlabored, Respiratory pattern is regular, symmetrical. Musculoskeletal: Circulation, motion, and sensation intact. Range of motion: intact in all extremities, Reports pain in back. 22:25 GI: Bowel sounds present X 4 quads. ha1 23:25 Reassessment: Patient and/or family updated on plan of care and expected duration. Pain ha1 level reassessed. Patient is alert, oriented x 3, equal unlabored respirations, skin warm/dry/pink. 10/24 00:20 Reassessment: Patient and/or family updated on plan of care and expected duration. Pain ha1 level reassessed. Patient is alert, oriented x 3, equal unlabored respirations, skin warm/dry/pink. 01:20 Reassessment: Patient and/or family updated on plan of care and expected duration. Pain ha1 level reassessed. Patient is alert, oriented x 3, equal unlabored respirations, skin warm/dry/pink. 02:20 Reassessment: Patient and/or family updated on plan of care and expected duration. Pain ha1 level reassessed. Patient is alert, oriented x 3, equal unlabored respirations, skin warm/dry/pink. Patient denies pain at this time. Patient states feeling better. Patient states symptoms have improved. Vital Signs: 10/23 22:17 BP 138 / 92; Pulse 83; Resp 17; Temp 98.3; Pulse Ox 100% on R/A; Weight 63.5 kg (R); lg3 Height 4 ft. 11 in. (R); Pain 6/10; 22:30 BP 125 / 68; Pulse 75; Resp 18 S; Pulse Ox 100% on R/A; ha1 23:30 BP 131 / 82; Pulse 72; Resp 16 S; Pulse Ox 100% ; ha1 10/24 00:30 BP 125 / 73; Pulse 69; Resp 18 S; Pulse Ox 100% ; ha1 01:30 BP 128 / 75; Pulse 75; Resp 18 S; Pulse Ox 100% on R/A; ha1 02:25 BP 125 / 71; Pulse 75; Resp 18 S; Pulse Ox 100% on R/A; ha1 10/23 22:17 Body Mass Index 28.28 (63.50 kg, 149.86 cm) lg3 10/23 22:17 Pain Scale: Adult lg3 ED Course: 10/23 21:44 Patient arrived in ED. jj6 21:47 Cristhian Carmen MD is Attending Physician. sp4 22:04 Radiology exam delayed due to lab results not completed at this time. (BUN/Creatinine) eh4 test not completed at this time. IV insertion attempt and/or patient not having appropriate IV at this time. 22:20 Triage completed. lg3 22:20 Arm band placed on right wrist. lg3 22:25 Patient has correct armband on for positive identification. Placed in gown. Bed in low ha1 position. Call light in reach. Side rails up X 1. 22:57 Initial lab(s) drawn, by me, sent to lab. Inserted saline lock: 20 gauge in left jw7 antecubital area, using aseptic technique. Blood collected. 22:58 CMP Sent. jw7 22:58 Lipase Sent. jw7 23:33 Annalise Nair, RN is Primary Nurse. 10/24 00:03 CT Abd/Pelvis - IV Contrast Only In Process Unspecified. EDMS 01:08 Urinalysis w/ reflexes Sent. cg 02:29 No provider procedures requiring assistance completed. IV discontinued, intact, ha1 bleeding controlled, No redness/swelling at site. Pressure dressing applied. Administered Medications: 10/23 23:30 Drug: Dicyclomine PO 20 mg Route: PO; 10/24 02:22 Follow up: Response: No adverse reaction 10/23 23:30 Drug: Phenazopyridine PO 200 mg Route: PO; 10/24 02:21 Follow up: Response: No adverse reaction 10/23 23:32 Drug: Ondansetron IVP 4 mg Route: IVP; Site: right antecubital; 10/24 00:00 Follow up: Response: No adverse reaction; Nausea is decreased 10/23 23:35 Drug: NS 0.9% IV 1000 ml Route: IV; Rate: 1 bolus; Site: right antecubital; 10/24 02:00 Follow up: Response: No adverse reaction; IV Status: Completed infusion; IV Intake: ha1 1000ml 10/23 23:35 Drug: morphine IVP or IV 4 mg Route: IVP; Infused Over: 4 mins; Site: right antecubital;10/24 00:05 Follow up: Response: No adverse reaction; Pain is decreased; RASS: Alert and Calm (0) ha1 02:02 Drug: Albuterol Inhalation 2.5 mg Route: Inhalation; ha1 02:21 Follow up: Response: No adverse reaction ha1 02:10 Drug: traMADol PO 100 mg Route: PO; ha1 02:21 Follow up: Response: No adverse reaction; Pain is decreased; RASS: Alert and Calm (0) ha1 02:10 Drug: Promethazine PO 25 mg Route: PO; ha1 02:21 Follow up: Response: No adverse reaction ha1 Medication: 02:29 VIS not applicable for this client. ha1 Intake: 02:00 IV: 1000ml; Total: 1000ml. ha1 Outcome: 02:02 Discharge ordered by . sp4 02:29 Discharged to home ambulatory, with family. ha1 02:29 Condition: stable 02:29 Discharge instructions given to patient, family, Instructed on discharge instructions, follow up and referral plans. medication usage, Demonstrated understanding of instructions, follow-up care, medications, Prescriptions given X 2. 02:30 Patient left the ED. ha1 Signatures: Dispatcher [employer] Savannah Rodriguez, RN RN Slime Miguel RN RN lg3 Kendra Verma Jodi jw7 Annalise Nair RN RN ha1 Hall, [employer] Cristhian Loyd MD MD sp4 Corrections: (The following items were deleted from the chart) 00:59 07/06 22:58 [id number].[email or web address].[email or web address] drawn and sent. jovani JOHNSON
[2022-10-24] MEDS ORDERED: ALBUTEROL 2.5 MG/3 ML NEB SOL ONE (02:03)
[2022-10-24] MEDS ORDERED: PROMETHAZINE 25 MG TABLET ONE (02:17)
[2022-10-24] MEDS ORDERED: TRAMADOL HCL 50 MG TAB ONE (02:18)
[2022-10-24 03:28] VITALS: O2SAT 100
[2022-10-24 03:29] VITALS: TEMP 98.3
[2022-10-24 03:37] VITALS: BP 125/71
--- NOTE | 2022-10-24 14:53 | RAD REPORT ---
EXAM DESCRIPTION: CT - Abdomen Pelvis W Contrast - 10/24/2022 1:14 am CLINICAL HISTORY: 47 years Female lower back pain, nausea COMPARISON: None TECHNIQUE: Images were obtained in axial, sagittal, and coronal planes. Intravenous contrast was adm inistered. This exam was performed according to our departmental dose-optimization program which includes use of Automated Exposure Control, adjustment of the mA and/or kV according to patient size and/or use of i terative reconstruction technique. FINDINGS: No abnormality involving the liver, leading, pancreas, or adrenal glands bilaterally. Mild ly contracted gallbladder. Punctate nonobstructing calcifications kidneys bilaterally. No hydronephrosis bilaterally. Unremarkab le bladder. Appendix within normal limits. No bowel obstruction, perforation, or inflammation. Moderate constipat ion. Punctate pelvic calcifications thought to be vascular in nature. These findings are unchanged wh en correlated with the prior study. No abnormality of abdominal aorta or portal vein. No adenopathy or abnormal fluid collections seen. U nremarkable uterus and ovaries bilaterally. No acute osseous abnormality. No abnormality lower lungs bilaterally. IMPRESSION: No acute intra-abdominal abnormality. Electronically signed by: Pascale Wooten MD 10/24/2022 12:32 AM CDT Due to temporary technical issues with the PACS/Fluency reporting system, reports are being signed by the in house radiologists without review as a courtesy to insure prompt reporting. The interpreting radiologist is fully responsible for the content of the report.
== END 2022-10-24 02:30 | disposition home or self-care (01) ==
LOC: ER 21:41
DX: R10.32 Left lower quadrant pain (principal); M54.50 Low back pain, unspecified; Z87.442 Personal history of urinary calculi
CPT/HCPCS: 96361; 85025; 36415; 81003; 83690; 80053; 74177; 96375; 96374; 99285; Q9967; Q0169; J7613; J2405; J7030